=== PATIENT | male | born 1950 | race Caucasian/White ===

== ENCOUNTER → 2017-11-27 08:12 | Outpatient (CLI) | payer MEDICARE, OTHER, SELFPAY ==
[2017-11-27 10:57] LABS: Anion Gap 6 (5-15); BUN 18 mg/dL (7-18); BUN/Creat Ratio 18.1 RATIO (10-20); Calcium,Total 8.9 mg/dL (8.5-10.1); Chloride 109 mmol/L (98-107); Cholesterol 176 mg/dL (200); EST Glomerular Filtration Rate 80 mL/min (>60); Est Glom Filt Rate - Afr Amer 97 mL/min (>60); Glucose 86 mg/dL (74-106); High Density Lipoprotein 59 mg/dL; PSA,Total - Annual Screen 1.73 ng/mL (0.00-4.00); Potassium 4.4 mmol/L (3.5-5.1); Sodium Level 141 mmol/L (136-145); Triglycerides 79 mg/dL; Very Low Density Lipoprotein 16 mg/dL (5-40)
== END ==
PROVIDERS: Family Provider Family Medicine; PCP Family Medicine; Visit Provider Family Medicine
DX: I10 Essential (primary) hypertension (principal); M72.2 Plantar fascial fibromatosis; Z12.5 Encounter for screening for malignant neoplasm of prostate
CPT/HCPCS: 36415; 80048; 80061; 84153; G0103

== ENCOUNTER → 2018-11-30 07:06 | Outpatient (CLI) | payer MEDICARE, OTHER, SELFPAY ==
[2018-11-30 10:37] LABS: Anion Gap 6 (5-15); BUN 22 mg/dL (7-18); BUN/Creat Ratio 23.5 RATIO (10-20); Calcium,Total 8.9 mg/dL (8.5-10.1); Chloride 111 mmol/L (98-107); Creatinine, Serum 0.94 mg/dL (0.70-1.30); EST Glomerular Filtration Rate 86 mL/min (>60); Est Glom Filt Rate - Afr Amer 104 mL/min (>60); Glucose 86 mg/dL (74-106); PSA,Total - Annual Screen 1.22 ng/mL (0.00-4.00); Potassium 4.2 mmol/L (3.5-5.1); Sodium Level 143 mmol/L (136-145)
== END ==
PROVIDERS: Family Provider Family Medicine; PCP Family Medicine; Referring Provider Family Medicine; Visit Provider Family Medicine
DX: Z12.5 Encounter for screening for malignant neoplasm of prostate (principal); I10 Essential (primary) hypertension
CPT/HCPCS: 36415; 80048; 84153; G0103

== ENCOUNTER → 2019-05-31 09:36 | Outpatient (CLI) | payer MEDICARE, OTHER, SELFPAY ==
[2019-05-31 12:32] LABS: Absolute Lymphocyte Count 1.66 X10^3/uL (0.83-4.51); Absolute Neutrophil Count 2.9 X10^3/uL (2.0-7.7); Basophil# 0.05 X10^3/uL; Eosinophil# 0.16 X10^3/uL; Eosinophils% 3.1 % (0-5); Hematocrit 44.8 % (40-54); Hemoglobin 14.5 g/dL (13.0-16.5); Lymphocyte # 1.66 X10^3/ul (4.0); Lymphocyte % 32.4 % (19-41); Mean Corp Hgb Conc 32.4 g/dL (32-36); Mean Corpuscular Hgb 29.8 pg (27.0-32.0); Mean Platelet Vol. 9.7 fl (6.2-12.0); Monocyte# 0.31 X10^3/uL; NRBC Flagged by Analyzer 0 % (0-5); Neutrophil # 2.92 X10^3/uL (2.7-7.7); Neutrophil % 56.9 % (47-70); Platelet Count 235 K/mm3 (150-450); RBC Distribution Width CV 12.9 % (11.6-14.6); RBC Distribution Width SD 43.6 fl (35.1-43.9); Red Blood Count 4.87 M/mm3 (4.6-6.2); White Blood Count 5.1 K/mm3 (4.4-11.0)
[2019-05-31 12:47] LABS: ALB/GLOB Ratio 1.2 RATIO (0.9-2.4); AST(SGOT) 12 U/L (15-37); Alanine Aminotransfer ALT/SGPT 21 U/L (16-61); Albumin, Serum 3.6 g/dL (3.2-5.0); Alkaline Phosphatase 95 U/L (45-117); Anion Gap 6 (5-15); BUN 16 mg/dL (7-18); BUN/Creat Ratio 16.2 RATIO (10-20); Calcium,Total 9.1 mg/dL (8.5-10.1); Chloride 107 mmol/L (98-107); Creatinine, Serum 0.99 mg/dL (0.70-1.30); EST Glomerular Filtration Rate 80 mL/min (>60); Est Glom Filt Rate - Afr Amer 97 mL/min (>60); Globulin 3.1 g/dL (2.2-4.2); Glucose 72 mg/dL (74-106); Potassium 4.4 mmol/L (3.5-5.1); Protein, Total 6.7 g/dL (6.4-8.2); Sodium Level 140 mmol/L (136-145); T4 Free Direct 0.92 ng/dL (0.76-1.46); Thyroid Stim Hormone (TSH) 0.61 uIU/mL (0.358-3.74)
== END ==
PROVIDERS: Family Provider Family Medicine; PCP Family Medicine; Referring Provider Family Medicine; Visit Provider Family Medicine
DX: I10 Essential (primary) hypertension (principal); E04.1 Nontoxic single thyroid nodule
CPT/HCPCS: 36415; 80053; 84439; 84443; 85025

== ENCOUNTER → 2019-06-11 15:12 | Outpatient (CLI) | payer MEDICARE, OTHER, SELFPAY ==
--- NOTE | 2019-06-11 15:14 | US_ITS ---
STUDY: THYROID ULTRASOUND REASON FOR EXAM: Male, 69 years old. NODULE FELT ON EXAM TECHNIQUE: Ultrasound evaluation of the thyroid was performed with real-time and static hart-scale imaging. COMPARISON: None. FINDINGS: RIGHT LOBE: The right lobe of the thyroid gland measures 5.0 x 2.0 x 1.9 cm. There is a heterogeneous echotexture. Multiple hypoechoic nodules are scattered throughout the entire right lobe.The largest nodule measures 1.1 cm. LEFT LOBE: The left lobe of the thyroid gland measures 5.0 x 1.9 x 2.0 cm. There is a heterogeneous echotexture. Multiple hypoechoic and isoechoic nodules are scattered throughout the entire left lobe. The largest nodule measures 1.3 cm. ISTHMUS: The isthmus measures 3 mm. US/Thyroid IMPRESSION: 1. Findings are compatible with multinodular goiter Electronically Signed: Juan Ennis MD at 10:20 EST , Service support ,
--- NOTE | 2019-06-11 16:45 | MRI_ITS ---
STUDY: MRI BRAIN WITH AND WITHOUT CONTRAST REASON FOR EXAM: Male, 69 years old. Acoustic schwannoma TECHNIQUE: Standardized multiplanar fat and water weighted pulse sequences were obtained. IV Dotarem 17 was administered for the contrast portion of the examination. COMPARISON: 06/24/2015 FINDINGS: There is enhancing lesion in the cochlea and vestibule grossly unchanged since the previous study. There is enlarging component within the lateral aspect of the internal auditory canal measured previously 2.2 x 1.5 mm now measures 3.5 x 3.5 mm. Normal size of the ventricles and extra-axial spaces for the patient's age. Normal white matter tracts of the supratentorial brain. Normal bilateral basal ganglia. Normal thalami. There is no extra-axial fluid accumulation. Normal flow voids within the major intracranial circulation suggesting patency by spin echo criteria. There is no enhancing intra-axial or extra-axial abnormality. Normal sella turcica, pituitary gland, infundibular stalk, optic chiasm and hypothalamus. Normal tectal plate and pineal gland. Normal midbrain, jesus and medulla. Normal cerebellum. Normal basal cisterns. Normal bilateral temporal bones. Normal bilateral internal auditory canals. No demonstrated orbital abnormality, within the constraints of a routine brain study. Normal visualized paranasal sinuses. Normal calvarium and skull base. Normal visualized soft tissue structures. Normal visualized upper cervical spine. 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 Electronically Signed: Nupur Mendoza, at 1:07 EST Tel , Service support ,
== END ==
PROVIDERS: Family Provider Family Medicine; PCP Family Medicine; Referring Provider Family Medicine; Visit Provider Family Medicine
DX: D36.10 Benign neoplasm of peripheral nerves and autonomic nervous system, unspecified (principal); E04.1 Nontoxic single thyroid nodule
CPT/HCPCS: 70553; 76536; A9575

== ENCOUNTER → 2020-01-29 11:14 | Outpatient (CLI) | payer MEDICARE, OTHER, SELFPAY ==
[2020-01-29 11:18] LABS: Mucous, Urine 0 SEEN /hpf (<or=2+)
[2020-01-29 12:50] LABS: Color, Urine Yellow (Yellow); Glucose, Dipstick Normal (Normal); Ketone-Dipstick Negative (Negative); Leukocyte Esterase-Dipstick 500 /ul (Negative); Nitrite-Dipstick Negative (Negative); Occult Blood-Urine 150 /ul (Negative); Protein-Dipstick 30 mg/dl (Negative); Urine Bilirubin Dipstick Negative (Negative); Urine Clarity Sl. Cloudy (Clear); Urine Urobilinogen Normal (Normal)
[2020-01-29 13:00] LABS: Bacteria 1+ /hpf (None Seen); Red Blood Cells-Urine 10-25 SEEN /hpf (0-5); Squamous Epithelial Cells - UA 0-5 SEEN /hpf (0-5); White Blood Cells 50-100 SEEN /hpf (0-5)
[2020-01-29 13:27] LABS: PSA,Total - Annual Screen 4.82 ng/mL (0.00-4.00)
== END ==
PROVIDERS: PCP Family Medicine; Visit Provider Family Medicine
DX: R30.0 Dysuria (principal); Z12.5 Encounter for screening for malignant neoplasm of prostate
CPT/HCPCS: 81001; 84153; 87077; 87086; 87088; 87186; G0103

== ENCOUNTER → 2020-02-28 08:53 | Outpatient (CLI) | payer MEDICARE, OTHER, SELFPAY ==
[2020-02-28 10:06] LABS: PSA,Total- Diagnostic 2.14 ng/mL (0.0-4.0)
== END ==
PROVIDERS: PCP Family Medicine; Referring Provider Family Medicine; Visit Provider Family Medicine
DX: R97.20 Elevated prostate specific antigen [PSA] (principal)
CPT/HCPCS: 36415; 84153

== ENCOUNTER → 2020-03-13 12:17 | Outpatient (CLI) | payer MEDICARE, OTHER, SELFPAY ==
[2020-03-13 15:36] LABS: Hematocrit 50.3 % (40-54); Mean Corp Hgb Conc 31.8 g/dL (32-36); Mean Corpuscular Hgb 28.8 pg (27.0-32.0); Mean Corpuscular Volume 90.6 fL (80-94); Mean Platelet Vol. 9.7 fl (6.2-12.0); Platelet Count 269 K/mm3 (150-450); RBC Distribution Width CV 12.8 % (11.6-14.6); RBC Distribution Width SD 42.7 fl (35.1-43.9); Red Blood Count 5.55 M/mm3 (4.6-6.2); White Blood Count 7.3 K/mm3 (4.4-11.0)
[2020-03-13 16:19] LABS: Anion Gap 7 (5-15); BUN 18 mg/dL (7-18); BUN/Creat Ratio 16.8 RATIO (10-20); Calcium,Total 9.2 mg/dL (8.5-10.1); Chloride 106 mmol/L (98-107); Creatinine, Serum 1.07 mg/dL (0.70-1.30); EST Glomerular Filtration Rate 73 mL/min (>60); Est Glom Filt Rate - Afr Amer 88 mL/min (>60); Glucose 86 mg/dL (74-106); Magnesium 2.5 mg/dL (1.6-2.6); Potassium 4.5 mmol/L (3.5-5.1); Sodium Level 139 mmol/L (136-145); Thyroid Stim Hormone (TSH) 0.88 uIU/mL (0.358-3.74)
== END ==
PROVIDERS: PCP Family Medicine; Referring Provider Family Medicine; Visit Provider Family Medicine
DX: I48.91 Unspecified atrial fibrillation (principal)
CPT/HCPCS: 36415; 80048; 83735; 84443; 85027

== ENCOUNTER → 2020-03-27 14:19 | Outpatient (CLI) | payer MEDICARE, OTHER, SELFPAY ==
[2020-03-27 17:47] LABS: Absolute Lymphocyte Count 1.98 X10^3/uL (0.83-4.51); Absolute Neutrophil Count 3.2 X10^3/uL (2.0-7.7); Basophil# 0.07 X10^3/uL; Basophil% 1.2 % (0-1); Eosinophil# 0.25 X10^3/uL; Eosinophils% 4.2 % (0-5); Hematocrit 44.6 % (40-54); Hemoglobin 14.3 g/dL (13.0-16.5); Lymphocyte # 1.98 X10^3/ul (4.0); Lymphocyte % 33.3 % (19-41); Mean Corp Hgb Conc 32.1 g/dL (32-36); Mean Corpuscular Hgb 29.3 pg (27.0-32.0); Mean Corpuscular Volume 91.4 fL (80-94); Mean Platelet Vol. 10.2 fl (6.2-12.0); Monocyte% 6.7 % (0-10); NRBC Flagged by Analyzer 0 % (0-5); Neutrophil # 3.24 X10^3/uL (2.7-7.7); Neutrophil % 54.4 % (47-70); Platelet Count 232 K/mm3 (150-450); RBC Distribution Width CV 12.8 % (11.6-14.6); Red Blood Count 4.88 M/mm3 (4.6-6.2)
[2020-03-27 18:11] LABS: AST(SGOT) 19 U/L (15-37); Alanine Aminotransfer ALT/SGPT 30 U/L (16-61); Albumin, Serum 3.5 g/dL (3.2-5.0); Alkaline Phosphatase 101 U/L (45-117); Anion Gap 5 (5-15); BUN 19 mg/dL (7-18); BUN/Creat Ratio 17.4 RATIO (10-20); Calcium,Total 8.5 mg/dL (8.5-10.1); Chloride 106 mmol/L (98-107); Creatinine, Serum 1.09 mg/dL (0.70-1.30); EST Glomerular Filtration Rate 72 mL/min (>60); Est Glom Filt Rate - Afr Amer 87 mL/min (>60); Globulin 3.4 g/dL (2.2-4.2); Glucose 80 mg/dL (74-106); Magnesium 2.4 mg/dL (1.6-2.6); Potassium 4.4 mmol/L (3.5-5.1); Protein, Total 6.9 g/dL (6.4-8.2); Sodium Level 139 mmol/L (136-145); Thyroid Stim Hormone (TSH) 0.86 uIU/mL (0.358-3.74)
== END ==
PROVIDERS: PCP Family Medicine; Referring Provider Family Medicine; Visit Provider Family Medicine
DX: I48.91 Unspecified atrial fibrillation (principal)
CPT/HCPCS: 36415; 80053; 83735; 84443; 85025

== ENCOUNTER → 2020-04-06 13:47 | Outpatient (CLI) | payer MEDICARE, OTHER, SELFPAY ==
--- NOTE | 2020-04-06 13:51 | ECHOD_ITS ---
Reason For Study: AFIB Procedure This was a 2D Doppler, Color Flow transthoracic echocardiogram. The exam was of adequate technical quality. Exam performed in department. Left Ventricle Normal LV size. Left ventricular systolic function is normal. The estimated ejection fraction is 55 %. Unable to assess diastolic dysfunction. No regional wall motion abnormalities noted. Right Ventricle Normal RV size. Normal systolic function. Atria The left atrium is mildly enlarged. Normal right atrium. No doppler evidence for ASD. Mitral Valve There is no mitral annular calcification. Normal mitral valve. Mild (1+) mitral valve insufficiency. Tricuspid Valve Normal tricuspid valve. Mild tricuspid valve insufficiency. Right ventricular systolic pressure estimated to be 21 mmHg. Aortic Valve Trisinus/trileaflet aortic valve. Normal aortic valve. Pulmonic Valve The pulmonic valve is not well visualized. Trivial pulmonic valve insufficiency. Great Vessels Normal sized aortic root. Pericardium/Pleural No pericardial effusion. MMode/2D Measurements & Calculations LVIDd: 4.6 cm IVSd: 0.93 cm Ao root diam: 3.5 cm LVIDs: 3.3 cm LVPWd: 0.93 cm RVDd: 3.7 cm FS: 27.7 % LAV(MOD-bp): 62.3 ml LA A4 area: 16.3 cm2 LA dimension(2D): 4.5 cm LAV(MOD-bp) Indexed: 28.9 ml/m2 LAV(MOD-sp2): 63.4 ml LAV(MOD-sp4): 47.2 ml RA A4 area: 16.0 cm2 Time Measurements MV dec time: 0.20 sec Doppler Measurements & Calculations MV E max patrick: 79.7 cm/sec Ao V2 max: 106.8 cm/sec LV V1 max: 90.2 cm/sec Ao max P.6 mmHg LV V1 max P.3 mmHg PA V2 max: 82.2 cm/sec TR max patrick: 210.5 cm/sec TR max P.7 mmHg Interpretation Summary Left ventricular systolic function is normal. The estimated ejection fraction is 55 %. The left atrium is mildly enlarged. Mild (1+) mitral valve insufficiency. Mild tricuspid valve insufficiency. Trivial pulmonic valve insufficiency. Right ventricular systolic pressure estimated to be 21 mmHg. Unable to assess diastolic dysfunction. Ordering Physician: Angel Guzman Referring Physician: Angel Guzman Performed By: Marybeth Rush, TYRON, RVT
== END ==
PROVIDERS: PCP Family Medicine; Referring Provider Family Medicine; Visit Provider Family Medicine
DX: I48.91 Unspecified atrial fibrillation (principal); R07.9 Chest pain, unspecified
CPT/HCPCS: 93306

== ENCOUNTER → 2020-05-28 06:57 | Outpatient (CLI) | payer MEDICARE, OTHER, SELFPAY ==
[2020-05-07 15:31] VITALS: BMI 24.5
--- NOTE | 2020-05-28 09:40 | STRESSREP ---
Stress Test Report Date: 05-28-2020 Procedure: Exercise tolerance test/imaging study Indications: Atrial fibrillation Consent: Per the patient Procedure: The patient exercised on a Richard protocol for 9 minutes completing Stage III achieving a peak heart rate of 129 bpm (84% predicted maximal heart rate) with a peak blood pressure 164/84 mmHg and a peak MET capacity of 10 METs. The baseline ECG demonstrated sinus rhythm. The peak exercise ECG demonstrated no obvious ECG changes. There were occasional PACs in recovery. The functional capacity was considered good. There was no complaint of chest discomfort during exercise or recovery. The examination was discontinued secondary to dyspnea. Impression: 1. Technically adequate (percent predicted maximal heart rate greater than 85%) exercise tolerance test 2. Peak exercise ECG with no obvious ECG changes 3. Were occasional PACs in recovery 4. Nuclear images pending Myocardial perfusion imaging study: Technique: The patient was injected with 11.4 mCi of technetium 99m Cardiolite and subsequently rest SPECT Cardiolite nuclear imaging was obtained in the horizontal long, vertical long, and short axis views. The patient exercised on a Richard protocol for 9 minutes completing Stage III achieving a peak heart rate of 129 bpm (84% predicted maximal heart rate) with a peak blood pressure 164/84 mmHg and a peak MET capacity of 10 METs. The patient was injected with 35.0 mCi of technetium 99m Cardiolite and subsequently stress SPECT Cardiolite nuclear imaging was obtained in the horizontal long, vertical long, and short axis views. A gated Cardiolite study at peak stress was obtained. Interpretation: Rest and stress SPECT Cardiolite nuclear imaging status post realignment, normalization, and attenuation correction, demonstrates the appearance following stress of an area of diminished tracer uptake in the mid inferoseptal/mid inferior segments. There is end systolic thickening and brightening. The gated Cardiolite study demonstrates myocardial thickening and inward wall motion. The reported LVEF is 64%. Impression: 1. Rest and stress SPECT Cardiolite nuclear imaging demonstrate myocardial perfusion changes potentially compatible with an area of stress-induced myocardial ischemia in portions of the mid inferior septal/mid inferior segments. 2. The gated Cardiolite study reports an LVEF of 64%. This note was generated with [employer] software. It may contain incorrect words, spelling, and punctuation that were not noted in checking the note before signing.
== END ==
PROVIDERS: PCP Family Medicine; Referring Provider Internal Medicine Cardiovascular Disease; Visit Provider Internal Medicine Cardiovascular Disease
DX: I48.91 Unspecified atrial fibrillation (principal); I25.10 Atherosclerotic heart disease of native coronary artery without angina pectoris
CPT/HCPCS: 78452; 93017; A9500; A4216

== ENCOUNTER 2020-06-16 07:55 | Day surgery (SDC) | payer MEDICARE, OTHER, SELFPAY ==
[2020-05-07 15:31] VITALS: BMI 24.5
--- NOTE | 2020-06-08 10:04 | RAD_ITS ---
STUDY: X-RAY CHEST REASON FOR EXAM: Male, 70 years old. Abnormal stress test. Intermittent chest pain. Atrial fibrillation. TECHNIQUE: Frontal and lateral views of the chest. COMPARISON: 03/03/2014 FINDINGS: Hyperexpansion unchanged. There is no demonstrated pleural abnormality. Normal size heart. Normal mediastinum and sudhir. Normal visualized pulmonary arteries. Normal visualized aortic arch and descending thoracic aorta. Normal visualized thoracic spine. Normal visualized ribs, clavicles, and shoulders. There is no demonstrated abnormality of the visualized soft tissue structures of the upper abdomen. RAD/Chest PA and Lateral IMPRESSION: Hyperexpansion with no acute finding. Electronically Signed: Elliot Robertson MD at 15:30 EST , Service support ,
[2020-06-08 11:38] LABS: Absolute Lymphocyte Count 1.64 X10^3/uL (0.83-4.51); Basophil# 0.04 X10^3/uL; Basophil% 0.8 % (0-1); Eosinophil# 0.18 X10^3/uL; Eosinophils% 3.5 % (0-5); Hematocrit 45.8 % (40-54); Hemoglobin 14.5 g/dL (13.0-16.5); Lymphocyte # 1.64 X10^3/ul (4.0); Lymphocyte % 31.8 % (19-41); Mean Corp Hgb Conc 31.7 g/dL (32-36); Mean Corpuscular Hgb 29.1 pg (27.0-32.0); Mean Platelet Vol. 9.6 fl (6.2-12.0); Monocyte# 0.31 X10^3/uL; NRBC Flagged by Analyzer 0 % (0-5); Neutrophil # 2.98 X10^3/uL (2.7-7.7); Neutrophil % 57.7 % (47-70); Platelet Count 235 K/mm3 (150-450); RBC Distribution Width CV 12.8 % (11.6-14.6); RBC Distribution Width SD 43.3 fl (35.1-43.9); Red Blood Count 4.98 M/mm3 (4.6-6.2); White Blood Count 5.2 K/mm3 (4.4-11.0)
[2020-06-08 11:54] LABS: Partial Thromboplast Time 27.3 Seconds (24.1-36.2); Prothrombin Time (Protime)PT. 13.1 SECONDS (11.7-14.9)
[2020-06-08 12:20] LABS: Anion Gap 3 (5-15); BUN 21 mg/dL (7-18); BUN/Creat Ratio 21.7 RATIO (10-20); Calcium,Total 9.1 mg/dL (8.5-10.1); Chloride 108 mmol/L (98-107); Creatinine, Serum 0.97 mg/dL (0.70-1.30); EST Glomerular Filtration Rate 82 mL/min (>60); Est Glom Filt Rate - Afr Amer 99 mL/min (>60); Glucose 76 mg/dL (74-106); Potassium 4.4 mmol/L (3.5-5.1); Sodium Level 140 mmol/L (136-145)
[2020-06-15 11:50] VITALS: BMI 24.5
[2020-06-16] VITALS (12 sets, daily range): BP systolic 124–164; BP diastolic 74–92; PULSE 50–67; RESP 16–18; TEMP 36.1–36.6; O2SAT 96–100; BMI 24.5
--- NOTE | 2020-06-16 09:00 | HP_ITS ---
HPI HPI History of Present Illness Details: This is a 70-year-old white male who presents for outpatient cardiovascular evaluation for concerns of paroxysmal atrial fibrillation. He states in the past he was thought to be hypertensive. However over the years he was weaned off his antihypertensive regimen. He states his blood pressure has been under good control. To the best of his knowledge she had no previous cardiovascular history or concerns. He notes that within the last 1 to 2 months he has had episodes of palpitations. He states he was evaluated by his PCP and was told he had paroxysmal atrial fibrillation. Based upon his [id number] reported at 1 (based upon his lack of congestive heart failure, lack of ongoing hypertension, lack of diabetes, lack of stroke, lack of vascular disease, and being a male as opposed to a female) he was placed on aspirin therapy and additional rate limiting therapy with low-dose beta-dom therapy. He states these events have been random. One awoke him from sleep and lasted for period of time throughout the night. The other ones have been somewhat random and shorter. He has not had near syncope or syncope. He has not had any ongoing concerning chest discomfort or difficulty breathing with these events. There is been no associated nausea, emesis, or diaphoresis. He states otherwise he is active. He has no other concerning chest discomfort. He does note that he can get the sensation of feeling somewhat short of breath at times. He has attributed this to age to some degree as well as during the coronavirus pandemic weight gain to some degree. He had an ECG in the office today. He was noted to be in sinus bradycardia with no obvious acute ECG changes. He had a transthoracic echocardiogram performed on 04-06-2020. The results are as noted below. He has had no other ongoing cardiac testing or procedures. 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 Accompanied by: Self Allergies No Known Allergies Allergy (Verified 05/07/20 15:32) Medications aspirin 81 mg tablet,delayed release 81 mg PO DAILY 05/05/20 [History Confirmed 05/07/20] escitalopram oxalate 20 mg tablet 20 mg PO DAILY 05/05/20 [History Confirmed 05/07/20] metoprolol tartrate 25 mg tablet 25 mg PO BID 05/05/20 [History Confirmed 05/07/20] FOR[facility]LY [facility] Medical History New onset atrial fibrillation (Acute) Multiple thyroid nodules (Acute) HTN (hypertension) (Chronic) Erectile dysfunction (Acute) Schwannoma (Acute) Tenosynovitis of hand (Acute) TMJ (dislocation of temporomandibular joint) (Chronic) Surgical History H/O oral surgery (Resolved) H/O shoulder surgery (Resolved) S/P arthroscopic surgery of left knee (Resolved) S/P arthroscopic surgery of right knee (Resolved) S/P rotator cuff repair (Resolved) Family History Grandfather Cancer Diabetes Mother Hypertension CVA (cerebral vascular accident) Father Cancer Grandmother Hypertension Aunt CVA (cerebral vascular accident) Other Heart disease Social History (Updated 05/07/20 @ 17:[address] Lan Harris MD) Smoking Status: Never smoker alcohol intake: current Alcohol type: beer substance use type: does not use caffeine: Yes ROS Const Const: Negative for fatigue, weakness, frequent falls, excessive sweating, weight gain or weight loss Eyes Eyes: Negative for transient loss of vision, blurry vision or change in vision ENT ENT: Positive for balance problems; negative for dizziness Cardio Chest Pain: No Palpitations: Yes (occasional) feels like its: other (flutter) Edema: None Muscle aches with walking: None Resp Respiratory: Positive for SOB with activity; negative for SOB at rest GI GI: Negative vomiting or vomiting blood/hematemesis : Negative for hematuria Musc Musc: Positive for balance problems; negative for muscle aches/ myalgia, muscle weakness or joint pain Skin Skin: Negative non-healing lesions or rash Neuro Neuro: Negative for dizziness, lightheadedness, orthostatic symptoms, frequent falls, weakness or blurry vision Dinesh Hematologic/Lymphatic: Negative for easy bleeding Endo Endo: Negative for fatigue or excessive sweating Psych Psych: Negative for anxiety or depression Allergy Allergy/Immunology: Negative for hives, Negative for rash Cardiology Exam Const Appearance: cooperative, healthy appearing, comfortable, no acute distress, well developed and well groomed Nutritional Appearance: thin Orientation: alert, awake and oriented x3 Head Head: normal to inspection, normocephalic and atraumatic Ears: hearing grossly normal bilaterally Nose: external nose normal Face and Sinus: face symmetric Eyes Eyelids: eyelids normal Conjunctivae: conjunctivae normal Pupils: PERRL EOM: EOM intact bilaterally Neck Neck: normal visual inspection and full ROM Carotids: normal carotid upstroke Chest Chest inspection: normal inspection of the chest, symmetric chest movement and normal respiratory effort Auscultation: Bilateral: Clear to Auscultation Cardio Palpation: normal PMI Rhythm: regular rhythm Heart sounds: S1 normal and S2 normal GI GI: normal to inspection, soft and bowel sounds present Neuro General: alert, awake, oriented x3 and moves all extremities Skin Skin: no rashes or lesions noted Extremities Pulses: Normal: Right Radial Pulse, Left Radial Pulse Lower Extremity Edema: None: Bilateral Psych Psychological: normal affect Assessment & Plan 1. New onset atrial fibrillation I48.91 Plan At the present time he appears to be remaining in sinus rhythm. He will continue his current medical therapy. He will undergo further evaluation with a 30-day ambulatory event monitor to try and correlate his symptoms with his underlying rhythm to assist with additional evaluation and care. He will also have further evaluation with an exercise tolerance test/imaging study to evaluate for any obvious underlying CAD that may be contributing to any of his symptoms and/or findings. Orders Orders: 12 [place] [facility] [place] 30 Day Event Recorder [employer] Today Nuclear Stress Test - [facility] Today 2. Essential hypertension I10 Plan As noted above he states he was treated for hypertension and then weaned off his medications. Thus he does not believe he has ongoing active hypertension. His blood pressure will need to be followed as this could factor into his ongoing evaluation and care. 3. Multiple thyroid nodules E04.2 Plan He is also been diagnosed with a multinodular goiter. He states he is due for a follow-up evaluation this fall by his other physicians. He did have a TSH level performed in March which appeared to be within normal limits at that time. 4. Shortness of breath R06.02 Plan He does noted sensation of shortness of breath. He is attributed to the aforementioned reasons. However based upon his ongoing diagnosis would be reasonable to evaluate him for the possibility of CAD and myocardial ischemia as noted above. Plan Detail Additional Comments The above was discussed with him and he was agreeable to this approach. Thank you for allowing me to participate in the care of your patient. Please don't hesitate to call if any issues arise. This note was generated using a voice recognition system and there may be incorrect words, spelling or punctuation that were not noted when reviewing the office note prior to saving. Follow Up 6 Months (with PFM) Coding Level of Care Code Off vis,new,level 4 Diagnoses New onset atrial fibrillation I48.91 Essential hypertension I10 ??Hypertension type: essential hypertension Multiple thyroid nodules E04.2 Shortness of breath R06.02 Coding Level of Care Code Off vis,new,level 4 Diagnoses New onset atrial fibrillation I48.91 Essential hypertension I10 ??Hypertension type: essential hypertension Multiple thyroid nodules E04.2 Shortness of breath R06.02 Supplemental Info Supplemental Information Echocardiogram: 04-06-2020 Interpretation Summary Left ventricular systolic function is normal. The estimated ejection fraction is 55 %. The left atrium is mildly enlarged. Mild (1+) mitral valve insufficiency. Mild tricuspid valve insufficiency. Trivial pulmonic valve insufficiency. Right ventricular systolic pressure estimated to be 21 mmHg. Unable to assess diastolic dysfunction. Labs LDL Cholesterol 101 mg/dL (0-130) 11/27/17 HDL Cholesterol 59 mg/dL (40-) 11/27/17 Triglycerides 79 mg/dL (-199) 11/27/17 VLDL Cholesterol 16 mg/dL (5-40) 11/27/17 Diagnostics Electrocardiogram 05/07/20 Echocardiogram 04/06/20 Chest X-Ray 03/03/14 I have examined the patient the following changes are noted: The patient underwent further evaluation as noted above with an exercise tolerance test / imaging study. The results are noted below. Stress Test Report Date: 05-28-2020 Procedure: Exercise tolerance test/imaging study Indications: Atrial fibrillation Consent: Per the patient Procedure: The patient exercised on a Richard protocol for 9 minutes completing Stage III achieving a peak heart rate of 129 bpm (84% predicted maximal heart rate) with a peak blood pressure 164/84 mmHg and a peak MET capacity of 10 METs. The baseline ECG demonstrated sinus rhythm. The peak exercise ECG demonstrated no obvious ECG changes. There were occasional PACs in recovery. The functional capacity was considered good. There was no complaint of chest discomfort during exercise or recovery. The examination was discontinued secondary to dyspnea. Impression: 1. Technically adequate (percent predicted maximal heart rate greater than 85%) exercise tolerance test 2. Peak exercise ECG with no obvious ECG changes 3. Were occasional PACs in recovery 4. Nuclear images pending Myocardial perfusion imaging study: Technique: The patient was injected with 11.4 mCi of technetium 99m Cardiolite and subsequently rest SPECT Cardiolite nuclear imaging was obtained in the horizontal long, vertical long, and short axis views. The patient exercised on a Richard protocol for 9 minutes completing Stage III achieving a peak heart rate of 129 bpm (84% predicted maximal heart rate) with a peak blood pressure 164/84 mmHg and a peak MET capacity of 10 METs. The patient was injected with 35.0 mCi of technetium 99m Cardiolite and subsequently stress SPECT Cardiolite nuclear imaging was obtained in the horizontal long, vertical long, and short axis views. A gated Cardiolite study at peak stress was obtained. Interpretation: Rest and stress SPECT Cardiolite nuclear imaging status post realignment, normalization, and attenuation correction, demonstrates the appearance following stress of an area of diminished tracer uptake in the mid inferoseptal/mid inferior segments. There is end systolic thickening and brightening. The gated Cardiolite study demonstrates myocardial thickening and inward wall motion. The reported LVEF is 64%. Impression: 1. Rest and stress SPECT Cardiolite nuclear imaging demonstrate myocardial perfusion changes potentially compatible with an area of stress-induced myocardial ischemia in portions of the mid inferior septal/mid inferior segments. 2. The gated Cardiolite study reports an LVEF of 64%. Based upon the above, the patient was recommended to consider further evaluation with diagnostic cardiac cath. The procedure and risks were discussed with him and he grants consent. The surgeon/proceduralist and patient have discussed in detail the risk of exposure to and/or potential harm posed by the COVID-19 virus with having a surgery/procedure at this time versus the risk of delaying the surgery/procedure. It is not possible to know either the risk of delaying the surgery or procedure or chance of getting an infection with perfect accuracy, but a joint decision was made between the patient and the surgeon/proceduralist to proceed at this time with the scheduled surgery/procedure as indicated on the consent form.
--- NOTE | 2020-06-16 12:45 | EKG12_ITS ---
Test Reason : PCI Blood Pressure : / mmHG Vent. Rate : 054 BPM Atrial Rate : 054 BPM P-R Int : 160 ms QRS Dur : 094 ms QT Int : 442 ms P-R-T Axes : 019 -06 024 degrees QTc Int : 419 ms Sinus bradycardia Otherwise normal ECG When compared with ECG of 03-MAR-2014 16:30, No significant change was found Confirmed by YELENA SUGGS, RYAN ([id number]), video editor WON MACKEY ([id number]) on 06/19/2020 2:26:06 PM Referred By: Lan Harris Confirmed By:YAYA KIRK MD
--- NOTE | 2020-06-16 13:28 | CL.D_ITS ---
Patient Name: ESTUARDO SMITH Study Date: 06/16/2020 Performing: Lan Harris MD Ht: 75.2 inches 191 cm : 1950 Wt: 196.21 lbs 89 kg Age: 70 Gender: male BSA: 2.18 PROCEDURE(S) PERFORMED II39-LEV/COR/LV PV49-AEX W OR WO PTCA, SINGLE CORONARY ARTERY [id number] W OR WO PTCA, SINGLE CORONARY ARTERY CLINICAL PROFILE AND INDICATIONS Indications: Suspected CAD, Cardiac Arrythmia Heart Failure: None Stress/Imaging Date: 05/28/2020Stress Test with SPECT MPI: Positive Angina Classification Anginal Classification w/in 2 Weeks: Anginal Equivalent Dyspnea CAD Presentations: Other: dyspnea on exertion CONCLUSIONS Elevated Left Ventricular End Diastolic Pressure Normal LV size, wall motion,and systolic function LVEF: by LV gram 60 % [place] Multivessel CAD RECOMMENDATIONS Risk factor modification Medical therapy Referred for immediate PCI Surgery consult for coronary revascularization Consultation: with Dr. Nathan of interventional cardiology and Dr. Benson of [facility] CT Surgery: Co nsideration for hybrid procedure with PCI to the LCX and RCA and elective minimally invasive DEL CID to the LAD) DESCRIPTION OF PROCEDURE The patient arrived to the procedure lab. The risks and benefits of the procedure as well as a full d escription of our services here and current unavailability of surgical backup were fully explained to the patient and/or their significant other prior to the catheterization. The Timeout was completed, verifying the correct patient and procedure. The patient's procedural site was prepped and draped in the usual fashion. Local anesthetic was given subcutaneously to right radial region with Lidocaine 2% . Using a modified Seldinger technique, arterial access was obtained via the right radial artery, a 6 Fr sheath was inserted. Right Coronary Artery selective angiography was then performed in multiple v iews using a 5 Fr. 4.0 [place] catheter. Left Coronary Artery selective angiography was performed in mu ltiple views using a 5 Fr. 4.0 [place] catheter. Left Coronary Artery selective angiography was perform ed in multiple views using a 5 Fr. JL3.5 catheter. Left Ventriculography was performed in BURGESS projection using a 5 Fr. Pigtail catheter. LV to AO pullback pressures were then recorded.The art erial sheath was pulled and a TR Band was applied for hemostasis w/ 15ml air CORONARY ANGIOGRAPHY DOMINANCE: Right Dominant LEFT HEART ASSESSMENT Left Ventricular Ejection Fraction: by LV Gram 60 % Normal LV wall motion Elevated Left Ventricular End Diastolic Pressure LVEDP: 16 mmHg LEFT MAIN: Mild luminal irregularities LEFT ANTERIOR DESCENDING ARTERY: Severe calcification, Mild luminal irregularities OSTIAL LAD: 85 % Stenosis CIRCUMFLEX ARTERY: Mild luminal irregularities PROX CIRC: 75 % Stenosis OM 1: Proximal - eccentric: 10 - 25 % Stenosis OM 2: Proximal - eccentric: 10 - 25 % Stenosis RIGHT CORONARY ARTERY: Mild luminal irregularities MID RCA: eccentric: 90 % Stenosis AORTIC ROOT: Angiographically normal COMPLICATIONS No Complications PROCEDURE MEDICATIONS Versed 1 mg IV Fentanyl 50 mcg IV Oxygen: 2 L/min via nasal cannula Heparin diluted in 23cc Heparinized saline. Patient given 10cc IA of this solution. 06/16/2020 09:33: 02 Heparin 7000 unit(s) IV 06/16/2020 11:01:06 Nitro 100 mcg IC 06/16/2020 11:04:47 SUMMARY OF HEMODYNAMIC DATA Time AIR REST ECG 08:13:34 AO 117/61 (88) SA 09:41:45 LV 149/-1, 16 09:56:51 LV 136/-8, 16 09:56:57 LV 127/-4, 22 09:58:02 LVp 116/-7, 6 09:58:06 AOp 135/67 (94) 09:58:11 AO 154/88 (40) 11:45:44 Signed By Lan Harris MD On 06/16/2020 13:27:44 Lan Harris MD
[2020-06-16] MEDS: 0.9% Normal Saline 1,000 ML 100 ML IV (14:02)
--- NOTE | 2020-06-16 14:35 | CRPHASE1 ---
Patient Communication Former Patient:: Phase I PHII Cardiac Rehab Discussed with Patient:: Yes Guide to Cardiac Rehab Given to Patient:: Yes Cardiac Rehab Facility Choice List Given to Patient:: Yes Choice Program [facility] PHII:: Communication Given to CR Choice Program Other:: Communication Given to CR Community Health Education Coordinator:: Shruthi Nathan Phase II Cardiac Rehab:: Yes Sessions:: 36 sessions - 3 days/wk, 12 weeks Risk Factors/Lifestyle Smoking Status: Never smoker Hx Hypertension: Yes - currently within normal limits Hx Diabetes Mellitus Type 1: No Hx Diabetes Mellitus Type 2: No Hx Metabolic Disorders: No Hx Dyslipidemia: No Hx Obesity: No ETOH: No Caffeine: No Substance Abuse: No Family History: Family History (Last Reviewed 05/07/20 @ 15:34 by Patricia Watt) Grandfather Cancer Diabetes Mother Hypertension CVA (cerebral vascular accident) Father Cancer Grandmother Hypertension Aunt CVA (cerebral vascular accident) Other Heart disease Cardiac Rehabilitation Info Cardiac Rehabilitation Program Information: Cardiac Rehabilitation is important for patients like you who are recovering from a heart problem. Cardiac rehabilitation programs are recognized as integral to the continued care of the patient with coronary heart disease. The cardiac rehabilitation program is designed to optimize a patient's physical, psychological, and social functioning. Health child care provider work in cardiac rehabilitation programs and assist you with getting the treatments you need to get stronger and healthier - like exercise, healthy eating habits, and medications. Cardiac rehabilitation has been show to help people with heart problems live longer and have better life enjoyment than people who do not go to cardiac rehabilitation. Please contact the Cardiac Rehabilitation Program at [facility] at in two weeks if you have not heard from them.
--- NOTE | 2020-06-16 14:37 | CRPH1.INSTRU ---
General Education CAD and cardiac anatomy and function:: Patient communicates acknowledgment Explanation of diagnoses and procedures:: Patient communicates acknowledgment Sign/Symptoms of [place]:: Patient communicates acknowledgment Antiplatelet therapy: Patient communicates acknowledgment Smoking Patient Nicotine/Smoking Risk Factors Are:: Never smoked Overweight/Obesity Patient Overweight/Obesity Risk Factors Are:: BMI Normal [24-29 & > 65 years old] Overweight/Obesity:: Not instructed Hypertension Recommendations Include:: Maintain BP <130/85, DASH dietary guidelines, Decrease/maintain normal body weight, Moderation of ETOH Hypertension:: Patient communicates acknowledgment Diabetes Patient Diabetes Risk Factors Are:: No documented hx of diabetes Stress Patient Stress Risk Factors Are:: Patient denies stress as a risk factor
[2020-06-16 14:51] LABS: ACT Activated Clotting Time 224 sec (74-137)
[2020-06-16] MEDS: Acetaminophen 325 MG Tablet 650 MG PO (14:53)
[2020-06-16] MEDS: Atorvastatin Calcium 40 MG Tablet PO (20:58)
[2020-06-17 03:00] VITALS: BP 112/76; PULSE 49; PULSE 66; RESP 16; TEMP 36.3; O2SAT 96
--- NOTE | 2020-06-17 05:55 | EKG12_ITS ---
Test Reason : AFIB Blood Pressure : / mmHG Vent. Rate : 067 BPM Atrial Rate : 067 BPM P-R Int : 134 ms QRS Dur : 094 ms QT Int : 398 ms P-R-T Axes : 018 -17 018 degrees QTc Int : 420 ms Normal sinus rhythm Normal ECG Confirmed by BRONSON SUGGS, LAN ([id number]), editorial director ALEJA PAN ([id number]) on 06/24/2020 1:13:19 PM Referred By: Lan Dobson Confirmed By:LAN DOBSON MD
[2020-06-17 07:00] VITALS: PULSE 55
[2020-06-17 07:05] LABS: Absolute Lymphocyte Count 1.73 X10^3/uL (0.83-4.51); Absolute Neutrophil Count 3.7 X10^3/uL (2.0-7.7); Basophil# 0.06 X10^3/uL; Eosinophils% 3.3 % (0-5); Hematocrit 41.8 % (40-54); Hemoglobin 13.9 g/dL (13.0-16.5); Lymphocyte # 1.73 X10^3/ul (4.0); Lymphocyte % 28.2 % (19-41); Mean Corp Hgb Conc 33.3 g/dL (32-36); Mean Corpuscular Volume 90.1 fL (80-94); Mean Platelet Vol. 9.3 fl (6.2-12.0); Monocyte# 0.42 X10^3/uL; Monocyte% 6.8 % (0-10); NRBC Flagged by Analyzer 0 % (0-5); Neutrophil # 3.72 X10^3/uL (2.7-7.7); Neutrophil % 60.5 % (47-70); Platelet Count 199 K/mm3 (150-450); RBC Distribution Width CV 12.7 % (11.6-14.6); RBC Distribution Width SD 41.8 fl (35.1-43.9); Red Blood Count 4.64 M/mm3 (4.6-6.2); White Blood Count 6.1 K/mm3 (4.4-11.0)
[2020-06-17 07:33] LABS: AST(SGOT) 16 U/L (15-37); Alanine Aminotransfer ALT/SGPT 22 U/L (16-61); Albumin, Serum 3.2 g/dL (3.2-5.0); Alkaline Phosphatase 79 U/L (45-117); Anion Gap 4 (5-15); BUN 17 mg/dL (7-18); BUN/Creat Ratio 19.5 RATIO (10-20); Calcium,Total 8.6 mg/dL (8.5-10.1); Chloride 110 mmol/L (98-107); Creatinine, Serum 0.87 mg/dL (0.70-1.30); EST Glomerular Filtration Rate 93 mL/min (>60); Est Glom Filt Rate - Afr Amer 112 mL/min (>60); Estimated Creatinine Clearance 97.13 ml/min; Globulin 3.2 g/dL (2.2-4.2); Glucose 78 mg/dL (74-106); Protein, Total 6.4 g/dL (6.4-8.2); Sodium Level 139 mmol/L (136-145)
--- NOTE | 2020-06-17 08:46 | PCM.DC ---
- Discharge Diagnoses Current Active Problems: CAD status post PCI Reason(s) for Visit for Discharge Instructions: Abnormal stress test. Cardiac catheterization You will use the following diet at home:: Regular, Cardiac Your food should be the consistency of: Regular Discharge Activity: May Drive - May not drive: X48 hours, May Shower - May shower: Today, May Take a Tub Bath - May take a tub bath: In 7 days May resume sexual activity in: 2 weeks Weight Bearing Status: - - Avoid heavy exertional activity especially involving the right upper extremity until 06-22-2020 Call your doctor if your incision/area has: Continuous Slow Oozing, Sudden Increased Bleeding, Increased Pain/ Swelling, Increased Redness, Foul Smelling Discharge, Swelling at the incision site Call your doctor if you observe: Fever of 101 or Higher, Coldness, Increased Pain, Numbness or Tingling, Change in Color, Shortness of breath, Fainting spells, Chest pain, Increased palpitations (irregular heartbeat) Remove Dressing in (days):: 1 Cleanse incision/area with: Soap & Water Additional Instructions: [facility]: Plan for them to contact you regarding future evaluation for coronary artery bypass grafting surgery procedure Allergies/Adverse Reactions: Allergies No Known Allergies Allergy (Verified 05/07/20 15:32) Medications to take at Discharge aspirin 81 mg tablet,delayed release 81 mg PO DAILY 05/05/20 escitalopram oxalate 20 mg tablet 20 mg PO DAILY 05/05/20 metoprolol tartrate 25 mg tablet 25 mg PO BID 05/05/20 clopidogrel 75 mg tablet 75 mg PO DAILY #30 tab 06/08/20 atorvastatin 40 mg tablet 40 mg PO QHS 06/16/20 Aspirin E.C. [Ecotrin] 81 mg PO DAILY@0800 tablet 06/17/20 Atorvastatin Calcium [Lipitor] 40 mg PO QHS #90 tab 06/17/20 Clopidogrel Bisulfate [Plavix] 75 mg PO DAILY tablet 06/17/20 Metoprolol Tartrate [Lopressor (beta dom)] 25 mg PO BID tablet 06/17/20 The following prescriptions were given: Atorvastatin Calcium [Lipitor] 40 mg PO QHS #90 tab Transmission Status: Pending to [facility] Primary Care Physician: Angel Guzman MD [Primary Care Provider] - Test Results: Test results from this visit will be discussed in further detail at your follow-up appointment, if applicable. Please Follow Up With: [facility] When: Office to arrange follow up visit
--- NOTE | 2020-06-17 08:50 | PCM.DC.SUM ---
Discharge Date and Diagnosis Date of Admission: 06/16/20 Date of Discharge: 06/17/20 - Primary Discharge Diagnosis Acute Problems: CAD - Secondary Discharge Diagnosis Chronic Problems: Chronic Problems (Last Updated 06/16/20 @ 14:37 by Patricia Watt) S/P coronary artery stent placement (Chronic ~06/16/20) PCI/JACQUELINE to LCX and RCA 06/17/20 Atherosclerotic heart disease of [place] coronary artery without angina pectoris (Chronic) Essential hypertension (Chronic) Hospital Course and Treatment Procedures: Cardiac catheterization, - - Cardiac intervention: PCI: PTCA/stent to the LCx and RCA Summary of Care Provided: The patient is a 70 year old white male with history of paroxysmal atrial fibrillation who presented for outpatient evaluation based upon an abnormal stress nuclear imaging study for diagnostic cardiac catheterization. Diagnostic cardiac catheterization revealed multivessel CAD including LAD ostial disease, LCx proximal disease, and RCA mid disease. The overall LV systolic function appeared to be preserved with an estimated LVEF of 60%. The patient's case was discussed with Dr. Nathan of interventional cardiology and Dr. Benson of [facility] CT Surgery. The consensus was to proceed with PCI of the LCx and RCA systems and have the patient be evaluated by CT surgery for future elective minimally invasive DEL CID to the LAD surgery. Thus the patient underwent LCx and RCA PCI without adverse event/complication. He was monitored overnight. He appeared to be symptomatically and hemodynamically stable. Thus it was felt the patient was stable to be released home for continued outpatient cardiology and CT surgery follow-up. [] Subjective: The patient appeared to be awake and alert no acute symptoms and resting comfortably. - Physical Exam Vitals/I&O's: Vital Signs Temp Pulse Resp BP Pulse Ox 97.3 F L 55 L 16 112/76 96 06/17/20 03:00 06/17/20 07:00 06/17/20 03:00 06/17/20 03:00 06/17/20 03:00 Oxygen Delivery Method Room Air Weight: 196 lb 3.382 oz Body Mass Index (BMI) 24.5 Intake and Output for Last 24 Hours 06/15/20 06/16/20 06/17/20 23:59 23:59 23:59 Intake Total 1285 / 1285 50 / 50 Balance 1285 / 1285 50 / 50 General: Alert, Oriented x3, Cooperative, No apparent distress, Well developed, Well nourished HEENT: Atraumatic, PERRLA, EOMI, Normocephalic Neck: No JVD Lungs: Clear to auscultation Cardiovascular: Regular rate, Normal S1, Normal S2 Abdomen: Bowel Sounds Present, Soft, Non Tender Extremities: No edema Neurological: Neuro grossly intact Psych/Mental Status: Normal Affect Comment: Right radial artery: Pulse 2+/4+: No bruit: No hematoma Laboratory Results 06/16/20 11:30: Activated Clotting Time 224 H 06/17/20 06:05: WBC 6.1, RBC 4.64, Hgb 13.9, Hct 41.8, MCV 90.1, MCH 30.0, MCHC 33.3, RDW Std Deviation 41.8, RDW Coeff of [place] 12.7, Plt Count 199, MPV 9.3, Immature Gran % (Auto) 0.200, Neut % (Auto) 60.5, Lymph % (Auto) 28.2, [place] % (Auto) 6.8, Eos % (Auto) 3.3, Baso % (Auto) 1.0, Absolute Neuts (auto) 3.7, Absolute Lymphs (auto) 1.73, Nucleated RBC % 0 06/17/20 06:05: Sodium 139, Potassium 4.0, Chloride 110 H, Carbon Dioxide 25.0, Anion Gap 4 L, BUN 17, Creatinine 0.87, Estim Creat Clear Calc 97.13, Est GFR (MDRD) Af Amer 112, Est GFR (MDRD) Non-Af 93, BUN/Creatinine Ratio 19.5, Glucose 78, Calcium 8.6, Total Bilirubin 0.80, AST 16, ALT 22, Alkaline Phosphatase 79, Total Protein 6.4, Albumin 3.2, Globulin 3.2, Albumin/Globulin Ratio 1.0 Current Medications Acetaminophen (Acetaminophen 325 Mg Tablet) 650 mg PO Q6H PRN PRN PRN Reason: HEADACHE Last Admin: 06/16/20 14:53 Dose: 650 mg Documented by: Aspirin (Aspirin E.C. 81 Mg Tablet) 81 mg PO DAILY@0800 BRINA Atorvastatin Calcium (Atorvastatin Calcium 40 Mg Tablet) 40 mg PO QHS BRINA Last Admin: 06/16/20 20:58 Dose: 40 mg Documented by: Atropine Sulfate (Atropine Sulfate 1 Mg/10 Ml Syringe) 0.5 mg IV UD PRN PRN Reason: HR <50 bpm Clopidogrel Bisulfate (Clopidogrel Bisulfate 75 Mg Tablet) 75 mg PO DAILY [facility] Heparin Sodium (Beef Lung) (Heparin Lock 500 Unit/5 Ml In 10 Ml Syringe) 500 unit IV UD PRN PRN Reason: HEPARIN FLUSH Labetalol HCl (Labetalol (Prefilled) 20 Mg/4 Ml) 5 mg IV X1 PRN PRN Reason: SBP >160 when pulling sheath Stop: 06/18/20 12:42 Metoprolol Tartrate (Metoprolol Tartrate 25 Mg Tablet) 25 mg PO BID [facility] Last Admin: 06/16/20 22:58 Dose: Not Given Documented by: Sodium Chloride (0.9% Normal Saline 500 Ml Iv.Soln.) 500 ml IV BOLUS PRN PRN Reason: VASO-VAGAL PROTOCOL Discharge Activity: May Drive - May not drive: X48 hours, May Shower - May shower: Today, May Take a Tub Bath - May take a tub bath: In 7 days May resume sexual activity in: 2 weeks Weight Bearing Status: - - Avoid heavy exertional activity especially involving the right upper extremity until 06-22-2020 Call your doctor if your incision/area has: Continuous Slow Oozing, Sudden Increased Bleeding, Increased Pain/ Swelling, Increased Redness, Foul Smelling Discharge, Swelling at the incision site Call your doctor if you observe: Fever of 101 or Higher, Coldness, Increased Pain, Numbness or Tingling, Change in Color, Shortness of breath, Fainting spells, Chest pain, Increased palpitations (irregular heartbeat) Remove Dressing in (days):: 1 Cleanse incision/area with: Soap & Water Home Medications: Medications to take at Discharge aspirin 81 mg tablet,delayed release 81 mg PO DAILY 05/05/20 escitalopram oxalate 20 mg tablet 20 mg PO DAILY 05/05/20 metoprolol tartrate 25 mg tablet 25 mg PO BID 05/05/20 clopidogrel 75 mg tablet 75 mg PO DAILY #30 tab 06/08/20 atorvastatin 40 mg tablet 40 mg PO QHS 06/16/20 Aspirin E.C. [Ecotrin] 81 mg PO DAILY@0800 tablet 06/17/20 Atorvastatin Calcium [Lipitor] 40 mg PO QHS #90 tab 06/17/20 Clopidogrel Bisulfate [Plavix] 75 mg PO DAILY tablet 06/17/20 Metoprolol Tartrate [Lopressor (beta dom)] 25 mg PO BID tablet 06/17/20 Following Prescriptions Were Given to Patient: Atorvastatin Calcium [Lipitor] 40 mg PO QHS #90 tab Transmission Status: Pending to [facility] Primary Care Physician: Angel Guzman MD [Primary Care Provider] - Please Follow Up With: [facility] When: Office to arrange follow up visit Disposition: Home Minutes spent on discharge:: 45 Patient Condition:: Stable Medical Necessity - Tobacco Use Smoking Status: Never smoker Meaningful Use Info Meaningful Use Diagnoses (Choose all that apply): None applicable
[2020-06-17 09:00] VITALS: BP 124/77; PULSE 66; RESP 18; TEMP 36.7; O2SAT 96
--- NOTE | 2020-06-17 09:33 | CL.I_ITS ---
Patient Name: ESTUARDO SMITH Study Date: 06/16/2020 Performing: Aurea Nathan MD Ht: 75 inches 191 cm : 1950 Wt: 196.5 lbs 89 kg Age: 70 Gender: male BSA: 2.18 PROCEDURE(S) PERFORMED NY54-NRD W OR WO PTCA, SINGLE CORONARY ARTERY [id number] W OR WO PTCA, SINGLE CORONARY ARTERY CLINICAL PROFILE AND CO-MORBIDITIES Indications: Suspected CAD, Cardiac Arrythmia Heart Failure: None Stress/Imaging Date: 05/28/2020 Stress Test with SPECT MPI: Positive Angina Classification Anginal Classification w/in 2 Weeks: Anginal Equivalent Dyspnea CAD Presentations: Other: dyspnea on exertion CONCLUSIONS Successful JACQUELINE to mRCA and pLCx RECOMMENDATIONS DESCRIPTION OF PROCEDURE The patient arrived to the procedure lab. The risks and benefits of the procedure as well as a full d escription of our services here and current unavailability of surgical backup were fully explained to the patient and/or their significant other prior to the catheterization. The Timeout was completed, verifying the correct patient and procedure. The patient's procedural site was prepped and draped in the usual fashion. Local anesthetic was given subcutaneously to right radial region with Lidocaine 2% Using a modified Seldinger technique,arterial access was obtained via the right radial artery, a 6Fr sheath was inserted. Right Coronary Artery selective angiography was then performed in multiple view s using a 5 Fr. 4.0 [place] catheter. Left Coronary Artery selective angiography was performed in multi ple views using a 5 Fr. 4.0 [place] catheter. Left Coronary Artery selective angiography was performed in multiple views using a 5 Fr. JL3.5 catheter. Left Ventriculography was performed in [place]UR[place] projection using a 5 Fr. Pigtail catheter. LV to AO pullback pressures were then recorded.The images were reviewed and options discussed. A decision was then made to proceed with an Intervention, IVUS o r other adjunct procedure. JR 4 Guide catheter was inserted and engaged into the RCA. [place] Guide wire was advanced to the RCA . Emerge 2.0x8 Balloon catheter was inserted. PTCA balloon inflated at 8 atms for 30 secs. Angiogram performed post balloon dilatation. Synergy 3.50x12 Drug Eluting stent was inserted. Angiogram perform ed post stent deployment. XB 3.5 Guide catheter was inserted and engaged into the LCA. [place] Guide wire was advanced to the Circumflex. Emerge 3.00x12 Balloon catheter was inserted. PTCA balloon inflated at 6 atms for 11 secs. PTCA balloon inflated at 6 atms for 9 secs. Angiogram performed post balloon d ilatation. Synergy 3.50x16 Drug Eluting stent was inserted. Angiogram performed post stent deployment . [place] Emerge 3.50x8 Balloon catheter was inserted. Angiogram performed post balloon dilatation. The arterial sheath was pulled and a TR Band was applied for hemostasis w/ 15ml air INTERVENTION INFORMATION LESION SITE: RCA (Mid) Lesion Complexity: High/C, chronic total occlusion: No, lesion at bifurcation: Yes, thrombus present: No, lesion length: 8 mm, culprit lesion: Yes, Previously treated lesion: No Pre Stenosis: 90 % Pre intervention LATOSHA flow: 3 PROCEDURE: Drug Eluting Stent with pre dilatation. Post Stenosis: 0 % Post intervention LATOSHA flow: 3 Lesion Devices: [place] .014 [place] Straight 190cm Syncbaktronic 6 Fr JR4.0 100cm Guide Catheter Bracco 100cc Isovue [place] Sci EMERGE MR 2.00x08 BALLOON [place] Sci Synergy MR JACQUELINE 3.50x12 LESION SITE: Circumflex (Proximal) Lesion Complexity: High/C, chronic total occlusion: No, lesion at bifurcation: No, thrombus present: No, lesion length: 12 mm, culprit lesion: Yes, Previously treated lesion: No Pre Stenosis: 75 % Pre intervention LATOSHA flow: 3 PROCEDURE: Drug Eluting Stent with pre and post dilatation Post Stenosis: 0 % Post intervention LATOSHA flow: 3 Lesion Devices: [place] .014 [place] Straight 190cm [place] 6 Fr XB3.5 100cm Guide Catheter [place] Sci EMERGE MR 3.00x12 BALLOON [place] Sci Synergy MR JACQUELINE 3.50x16 [place] Sci NC EMERGE MR 3.50x08 BALLOON COMPLICATIONS No Complications PROCEDURE MEDICATIONS Versed 1 mg IV Fentanyl 50 mcg IV Oxygen: 2 L/min via nasal cannula Heparin diluted in 23cc Heparinized saline. Patient given 10cc IA of this solution. 06/16/2020 09:33: 02 Heparin 7000 unit(s) IV 06/16/2020 11:01:06 Nitro 100 mcg IC 06/16/2020 11:04:47 SUMMARY OF HEMODYNAMIC DATA Time AIR REST ECG 08:13:34 AO 117/61 (88) SA 09:41:45 LV 149/-1, 16 09:56:51 LV 136/-8, 16 09:56:57 LV 127/-4, 22 09:58:02 LVp 116/-7, 6 09:58:06 AOp 135/67 (94) 09:58:11 AO 154/88 (40) 11:45:44 Signed By Aurea Nathan MD On 06/17/2020 09:33:11 Aurea Nathan MD
[2020-06-17 09:36] VITALS: PULSE 60
[2020-06-17] MEDS: Aspirin E.C. 81 MG Tablet PO (09:36)
[2020-06-17] MEDS: Clopidogrel Bisulfate 75 MG Tablet PO (09:36)
== END 2020-06-17 08:50 | disposition home or self-care (01) ==
LOC: CLSP 07:56 → PCU 06-17 10:32
PROVIDERS: PCP Family Medicine; Referring Provider Internal Medicine Cardiovascular Disease; Visit Provider Internal Medicine Cardiovascular Disease
DX: I25.10 Atherosclerotic heart disease of native coronary artery without angina pectoris (principal); I48.0 Paroxysmal atrial fibrillation; I10 Essential (primary) hypertension; E04.2 Nontoxic multinodular goiter; R06.02 Shortness of breath; Z79.82 Long term (current) use of aspirin; Z79.02 Long term (current) use of antithrombotics/antiplatelets; Z79.899 Other long term (current) drug therapy
CPT/HCPCS: 36415; 71046; 80048; 80053; 85025; 85347; 85610; 85730; 92928; 93005; 93458; 99152; 99153; J7030; J7040; Q9967; C1725; C1769; C1874; C1887; C1894; C9600

== ENCOUNTER → 2020-07-06 09:20 | Outpatient (CLI) | payer MEDICARE, OTHER, SELFPAY ==
[2020-06-16 12:22] VITALS: BMI 24.5
--- NOTE | 2020-07-06 09:21 | US_ITS ---
STUDY: THYROID ULTRASOUND REASON FOR EXAM: Male, 70 years old. Nodules. TECHNIQUE: Ultrasound evaluation of the thyroid was performed with real-time and static hart-scale imaging. COMPARISON: June 11, 2019. FINDINGS: RIGHT LOBE: The right lobe of the thyroid gland measures 5.4 x 1.9 x 1.9 cm. There is a homogeneous echotexture. Multiple nodules, upper pole solid nodule measuring 1.1 x 0.4 x 0.4 cm, complex cystic nodule measuring 0.6 x 0.5 x 0.4 cm, mid pole solid nodule measuring 0.7 x 0.5 x 0.4 cm and complex cystic measuring 0.7 x 0.4 x 0.4 cm. LEFT LOBE: The left lobe of the thyroid gland measures 5.2 x 1.9 x 1.8 cm. There is a homogeneous echotexture. Multiple nodules upper pole solid measuring 0.9 x 0.6 x 0.6 cm, 0.7 x 0.4 x 0.4 cm with calcifications, mid pole solid nodule measuring 1.3 x 1.1 x 0.8 cm and 1.5 x 1.1 x 0.7 cm with calcifications. ISTHMUS: The isthmus measures 3 mm. No nodules visualized.. The regional lymph nodes are normal. US/Thyroid IMPRESSION: The thyroid gland is enlarged not significantly changed. Appearance suggests multinodular goiter. Multiple solid and complex cystic nodules bilaterally. The nodules on the right have not significantly changed. New 1.5 cm solid nodule with calcifications mid pole left lobe. Slight increase in size of previously noted solid nodule midpole left lobe. Electronically Signed: Adriano Estrella MD at 3:44 EST , Service support ,
== END ==
PROVIDERS: PCP Family Medicine; Referring Provider Family Medicine; Visit Provider Family Medicine
DX: E04.1 Nontoxic single thyroid nodule (principal)
CPT/HCPCS: 76536

== ENCOUNTER → 2021-01-14 08:29 | Outpatient (CLI) | payer MEDICARE, OTHER, SELFPAY ==
[2021-01-13 08:55] VITALS: BMI 24.2
[2021-01-14 10:09] LABS: Absolute Lymphocyte Count 1.96 X10^3/uL (0.83-4.51); Absolute Neutrophil Count 3.2 X10^3/uL (2.0-7.7); Basophil# 0.05 X10^3/uL; Basophil% 0.9 % (0-1); Eosinophil# 0.25 X10^3/uL; Eosinophils% 4.3 % (0-5); Hematocrit 45.3 % (40-54); Hemoglobin 14.7 g/dL (13.0-16.5); Lymphocyte # 1.96 X10^3/ul (0.83-4.51); Lymphocyte % 33.3 % (19-41); Mean Corp Hgb Conc 32.5 g/dL (32-36); Mean Corpuscular Hgb 28.9 pg (27.0-32.0); Mean Platelet Vol. 9.6 fl (6.2-12.0); Monocyte% 6.8 % (0-10); NRBC Flagged by Analyzer 0 % (0-5); Neutrophil # 3.21 X10^3/uL (2.7-7.7); Neutrophil % 54.5 % (47-70); Platelet Count 242 K/mm3 (150-450); RBC Distribution Width CV 13.1 % (11.6-14.6); RBC Distribution Width SD 42.8 fl (35.1-43.9); Red Blood Count 5.09 M/mm3 (4.6-6.2); White Blood Count 5.9 K/mm3 (4.4-11.0)
[2021-01-14 10:43] LABS: ALB/GLOB Ratio 1.1 RATIO (0.9-2.4); AST(SGOT) 42 U/L (15-37); Alanine Aminotransfer ALT/SGPT 59 U/L (16-61); Albumin, Serum 3.5 g/dL (3.2-5.0); Alkaline Phosphatase 113 U/L (45-117); Anion Gap 5 (5-15); BUN 20 mg/dL (7-18); BUN/Creat Ratio 19.4 RATIO (10-20); Calcium,Total 8.4 mg/dL (8.5-10.1); Chloride 106 mmol/L (98-107); Cholesterol 114 mg/dL (200); Creatinine, Serum 1.03 mg/dL (0.70-1.30); EST Glomerular Filtration Rate 76 mL/min (>60); Est Glom Filt Rate - Afr Amer 92 mL/min (>60); Globulin 3.3 g/dL (2.2-4.2); Glucose 89 mg/dL (74-106); High Density Lipoprotein 57 mg/dL; Magnesium 2.1 mg/dL (1.6-2.6); Potassium 4.3 mmol/L (3.5-5.1); Protein, Total 6.8 g/dL (6.4-8.2); Sodium Level 140 mmol/L (136-145); Triglycerides 47 mg/dL; Very Low Density Lipoprotein 9 mg/dL (5-40)
== END ==
PROVIDERS: PCP Family Medicine; Visit Provider Family Medicine
DX: I48.91 Unspecified atrial fibrillation (principal)
CPT/HCPCS: 36415; 80053; 80061; 83735; 84443; 85025

== ENCOUNTER → 2021-02-22 11:20 | Outpatient (CLI) | payer MEDICARE, OTHER, SELFPAY ==
[2021-01-13 08:55] VITALS: BMI 24.2
--- NOTE | 2021-02-22 11:22 | US_ITS ---
STUDY: THYROID ULTRASOUND REASON FOR EXAM: Male, 70 years old. Abnormal TSH, known nodules TECHNIQUE: Ultrasound evaluation of the thyroid was performed with real-time and static hart-scale imaging. COMPARISON: 07/06/2020 FINDINGS: RIGHT LOBE: The right lobe of the thyroid gland measures 5.6 x 1.6 x 1.8 cm. There is a homogeneous echotexture. There are multiple stable solid, and solid/cystic nodules. Largest again contains calcifications and measures 1.2 x 0.8 x 0.5 cm. LEFT LOBE: The left lobe of the thyroid gland measures 5.1 x 2.3 x 2.0 cm. There is a homogeneous echotexture. Multiple stable solid and solid/cystic nodules, largest again measures approximately 1.4 x 0.8 x 1.1 cm and contains calcifications. ISTHMUS: The isthmus measures 0.1 cm. There is a stable isthmus nodule measuring 0.5 x 0.4 x 0.3 cm. The regional lymph nodes are normal. US/Thyroid IMPRESSION: Enlarged homogeneous thyroid with stable bilateral solid and solid/cystic nodules. Findings again suggestive of goiter. No significant interval change since the previous study, six-month follow-up recommended to assess stability Electronically Signed: Ankit Pat MD at 10:50 EDT , Service support ,
== END ==
PROVIDERS: PCP Family Medicine; Referring Provider Surgery; Visit Provider Surgery
DX: E04.2 Nontoxic multinodular goiter (principal)
CPT/HCPCS: 76536

== ENCOUNTER 2021-08-04 08:24 | Outpatient (CLI) | payer MEDICARE, OTHER, SELFPAY ==
[2021-08-04 10:23] LABS: Absolute Lymphocyte Count 2.21 X10^3/uL (0.83-4.51); Absolute Neutrophil Count 3.2 X10^3/uL (2.0-7.7); Basophil# 0.06 X10^3/uL; Eosinophil# 0.27 X10^3/uL; Eosinophils% 4.4 % (0-5); Hematocrit 44.8 % (40-54); Lymphocyte # 2.21 X10^3/ul (0.83-4.51); Lymphocyte % 35.8 % (19-41); Mean Corp Hgb Conc 33.5 g/dL (32-36); Mean Corpuscular Hgb 30.1 pg (27.0-32.0); Mean Corpuscular Volume 89.8 fL (80-94); Mean Platelet Vol. 9.6 fl (6.2-12.0); Monocyte# 0.42 X10^3/uL; Monocyte% 6.8 % (0-10); NRBC Flagged by Analyzer 0 % (0-5); Neutrophil % 51.8 % (47-70); Platelet Count 221 K/mm3 (150-450); RBC Distribution Width CV 12.6 % (11.6-14.6); RBC Distribution Width SD 41.1 fl (35.1-43.9); Red Blood Count 4.99 M/mm3 (4.6-6.2); White Blood Count 6.2 K/mm3 (4.4-11.0)
[2021-08-04 10:38] LABS: AST(SGOT) 24 U/L (15-37); Alanine Aminotransfer ALT/SGPT 44 U/L (16-61); Albumin, Serum 3.5 g/dL (3.2-5.0); Alkaline Phosphatase 98 U/L (45-117); Anion Gap 7 (5-15); BUN 17 mg/dL (7-18); BUN/Creat Ratio 15.9 RATIO (10-20); Chloride 109 mmol/L (98-107); Cholesterol 112 mg/dL (200); Creatinine, Serum 1.07 mg/dL (0.70-1.30); EST Glomerular Filtration Rate 73 mL/min (>60); Est Glom Filt Rate - Afr Amer 88 mL/min (>60); Globulin 3.4 g/dL (2.2-4.2); Glucose 89 mg/dL (74-106); High Density Lipoprotein 58 mg/dL; Magnesium 2.2 mg/dL (1.6-2.6); PSA,Total - Annual Screen 2.83 ng/mL (0.00-4.00); Potassium 4.1 mmol/L (3.5-5.1); Protein, Total 6.9 g/dL (6.4-8.2); Sodium Level 140 mmol/L (136-145); Triglycerides 78 mg/dL; Very Low Density Lipoprotein 16 mg/dL (5-40)
== END 2021-08-04 23:59 | disposition short-term general hospital (02) ==
LOC: MFPLAB 08:27
PROVIDERS: PCP Family Medicine; Referring Provider Family Medicine; Visit Provider Family Medicine
DX: I25.10 Atherosclerotic heart disease of native coronary artery without angina pectoris (principal); I48.91 Unspecified atrial fibrillation; Z12.5 Encounter for screening for malignant neoplasm of prostate
CPT/HCPCS: 36415; 80053; 80061; 83735; 84153; 85025; G0103

== ENCOUNTER 2021-08-16 10:41 | Outpatient (CLI) | payer MEDICARE, OTHER, SELFPAY ==
--- NOTE | 2021-08-16 10:45 | ECHOD_ITS ---
Reason For Study: SOB Procedure This was a 2D Doppler, Color Flow transthoracic echocardiogram. Exam performed in department. Left Ventricle Normal LV size. Left ventricular systolic function is normal. The estimated ejection fraction is 55 %. Stage 1 diastolic dysfunction. No regional wall motion abnormalities noted. Right Ventricle Normal RV size. Normal systolic function. Atria Normal left atrium. Normal right atrium. Mitral Valve Normal mitral valve. Trivial eccentric mitral valve insufficiency. Tricuspid Valve Normal tricuspid valve. Mild tricuspid valve insufficiency. Aortic Valve Trisinus/trileaflet aortic valve. Pulmonic Valve Normal pulmonic valve. Mild (1+) pulmonic valve insufficiency. Great Vessels Normal aortic root. The pulmonary artery is normal size. Inferior vena cava collapse with respiration. Pericardium/Pleural No pericardial effusion. MMode/2D Measurements & Calculations LVIDd: 4.9 cm IVSd: 1.2 cm Ao root diam: 3.4 cm LVIDs: 3.3 cm LVPWd: 1.0 cm LA dimension: 4.2 cm RVDd: 4.4 cm FS: 31.7 % LAV(MOD-bp): 54.9 ml LA A4 area: 17.9 cm2 RA A4 area: 17.9 cm2 LAV(MOD-bp) Indexed: 25.5 ml/m2 LAV(MOD-sp2): 55.8 ml LAV(MOD-sp4): 53.0 ml Time Measurements MV dec time: 0.27 sec Doppler Measurements & Calculations MV E max torin: 52.6 cm/sec Lat Peak E' Torin: 11.2 cm/sec Med Peak E' Torin: 6.8 cm/sec MV A max torin: 64.2 cm/sec E/E' lat: 4.7 E/E' med: 7.8 MV E/A: 0.82 MV V2 max: 71.7 cm/sec MV P1/2t max torin: 60.0 cm/sec Ao V2 max: 95.4 cm/sec MV max P.1 mmHg MV P1/2t: 107.8 msec Ao max P.6 mmHg MV V2 mean: 34.7 cm/sec MV dec slope: 163.1 cm/sec2 MV mean P.60 mmHg MVA(P1/2t): 2.0 cm2 MV V2 VTI: 28.4 cm LV V1 max: 82.8 cm/sec PA V2 max: 88.6 cm/sec TR max torin: 217.0 cm/sec LV V1 max P.7 mmHg TR max P.8 mmHg ECHO/Echo Complete Interpretation Summary Normal LV size. Left ventricular systolic function is normal. The estimated ejection fraction is 55 %. Stage 1 diastolic dysfunction. Structurally normal valves. Ordering Physician: Angel Guzamn Referring Physician: Angel Guzman Performed By: Terry Way RCS
== END 2021-08-16 23:59 | disposition short-term general hospital (02) ==
LOC: CVS 10:42
PROVIDERS: PCP Family Medicine; Referring Provider Family Medicine; Visit Provider Family Medicine
DX: R06.02 Shortness of breath (principal)
CPT/HCPCS: 93306

== ENCOUNTER 2022-03-13 02:16 | Emergency (ER) | payer MEDICARE, OTHER, SELFPAY ==
[2022-03-13 02:17] VITALS: BP 142/74; PULSE 56; RESP 18; TEMP 36.5; O2SAT 98; BMI 26.1
--- NOTE | 2022-03-13 02:34 | EKG12_ITS ---
Test Reason : CP Blood Pressure : / mmHG Vent. Rate : 057 BPM Atrial Rate : 057 BPM P-R Int : 154 ms QRS Dur : 096 ms QT Int : 432 ms P-R-T Axes : 021 -37 004 degrees QTc Int : 420 ms Sinus bradycardia Left axis deviation Nonspecific ST abnormality Abnormal ECG Confirmed by BRONSON SUGGS, LEIF ([id number]), social media editor ALEJA PAN ([id number]) on 03/15/2022 7:30:29 AM Referred By: MAI Confirmed By:LEIF DOBSON MD
--- NOTE | 2022-03-13 02:34 | RAD_ITS ---
EXAM: XR CHEST, 1 VIEW CLINICAL INDICATION: chest pain TECHNIQUE: Frontal view of the chest. This report was created using [facility] report generation technology. COMPARISON: None. FINDINGS: LUNGS AND PLEURAL SPACES: Unremarkable. No consolidation or edema. No pneumothorax. No effusion. HEART: Enlarged cardiac silhouette which is a change from before. MEDIASTINUM: Central airways and mediastinal contour are unremarkable. BONES/JOINTS: Degenerative changes of the acromioclavicular joints and spine. SOFT TISSUES: Unremarkable. RAD/Chest 1 View (Portable) IMPRESSION: No acute disease. Electronically Signed: Medhat Kasper MD at 2:55 EDT ,
[2022-03-13 02:42] VITALS: O2SAT 97
[2022-03-13] MEDS: Aspirin 81 MG TAB.CHEW 162 MG PO (02:42)
[2022-03-13 02:46] LABS: Absolute Lymphocyte Count 2.39 X10^3/uL (0.83-4.51); Absolute Neutrophil Count 4.6 X10^3/uL (2.0-7.7); Basophil# 0.04 X10^3/uL; Basophil% 0.5 % (0-1); Eosinophil# 0.35 X10^3/uL; Eosinophils% 4.4 % (0-5); Hematocrit 42.9 % (40-54); Hemoglobin 14.5 g/dL (13.0-16.5); Lymphocyte # 2.39 X10^3/ul (0.83-4.51); Lymphocyte % 30.1 % (19-41); Mean Corp Hgb Conc 33.8 g/dL (32-36); Mean Corpuscular Hgb 30.5 pg (27.0-32.0); Mean Corpuscular Volume 90.3 fL (80-94); Mean Platelet Vol. 9.4 fl (6.2-12.0); Monocyte% 6.3 % (0-10); NRBC Flagged by Analyzer 0 % (0-5); Neutrophil # 4.64 X10^3/uL (2.7-7.7); Neutrophil % 58.4 % (47-70); Platelet Count 204 K/mm3 (150-450); RBC Distribution Width CV 12.4 % (11.6-14.6); RBC Distribution Width SD 41.1 fl (35.1-43.9); Red Blood Count 4.75 M/mm3 (4.6-6.2); White Blood Count 7.9 K/mm3 (4.4-11.0)
--- NOTE | 2022-03-13 02:59 | ED.VIS.CHEST ---
HPI History of Present Illness Chief Complaint: Chest Pain Informant: patient and spouse/S.O. Onset/Context/Timing Onset: Hours (1) Activity at onset: sudden, activity on onset and sleep Timing: Continuous Quality: Positive for Dull and Indigestion Location: Substernal (lower) Current Severity: Gone Maximum Severity: Severe Worsened By: Nothing; Not Worsened By Movement of Arm or Breathing Relieved By: Antacids (possibly -- see below) Associated Symptoms: Positive for Nausea, Vomiting, Diaphoresis and Dyspnea; Negative for Cough, Fever, Lightheadedness or Palpitations Narrative Narrative: Patient woke up suddenly in the middle of the night with chest discomfort and felt like indigestion. He took some antiacid and promptly vomited, he later took some more antiacid and the discomfort went away, he is unsure if this caused it to resolve or not. He had some tingling in his left fingertips. He was concerned that this could be his heart because around 2 years ago he had stents placed, followed by a CABG at [facility] in 08/2020. They were found on accident he had no chest discomfort with those. He states for the last week or 2 he has had some dyspnea with exertion but no chest discomfort like this. [facility] Medical History Abnormal stress test Atherosclerotic heart disease of unga coronary artery without angina pectoris Benign essential HTN Erectile dysfunction Multiple thyroid nodules New onset atrial fibrillation PAF (paroxysmal atrial fibrillation) Schwannoma Tenosynovitis of hand TMJ (dislocation of temporomandibular joint) Home Medications aspirin 81 mg tablet,delayed release (Adult Low Dose Aspirin) 81 mg PO DAILY heart health 05/05/20 [History Last Taken 06/16/20] escitalopram oxalate 20 mg tablet 20 mg PO DAILY depression 05/05/20 [History Last Taken 06/16/20] atorvastatin 40 mg tablet 40 mg PO QHS #90 tabs 06/23/21 [Rx Last Taken Unknown] clopidogrel 75 mg tablet 75 mg PO DAILY #90 tabs 09/24/21 [Rx Last Taken Unknown] metoprolol tartrate 25 mg tablet 12.5 mg PO BID blood pressure #90 tabs 11/15/21 [Rx Last Taken Unknown] Allergy/AdvReac Type Severity Reaction Status Date / Time chlorhexidine Allergy Intermediate rash Verified 03/13/22 02:21 [From Maddie] Family History Grandfather Cancer Diabetes Mother Hypertension CVA (cerebral vascular accident) Father Cancer Grandmother Hypertension Aunt CVA (cerebral vascular accident) Other Heart disease Surgical History H/O oral surgery H/O shoulder surgery History of coronary artery bypass surgery (~09/01/20) History of left heart catheterization (LHC) (~06/16/20) S/P arthroscopic surgery of left knee S/P arthroscopic surgery of right knee S/P coronary artery stent placement (~06/16/20) S/P rotator cuff repair Social History Smoking Status: Never smoker alcohol intake: current Alcohol type: beer substance use type: does not use caffeine: Yes ROS ROS ED Constitutional Constitutional ED: Reports sweats; Denies chills or fever(s) Eyes Eyes: Denies change in vision or diplopia ENT ENT ED: Denies rhinorrhea or sore throat Cardiovascular Cardiovascular: Reports chest pain; Denies palpitations Respiratory/Chest Respiratory/Chest: Reports dyspnea; Denies cough Gastrointestinal Gastrointestinal: Denies abdominal pain, diarrhea, nausea or vomiting Genitourinary Genitourinary ED: Denies dysuria or hematuria Musculoskeletal Musculoskeletal: Denies back pain or neck pain Integumentary Denies abscess or rash Neurologic Neurologic: Reports paresthesias LUE (Fingertips only mostly thumb); Denies headache(s) or weakness Psychiatric Psychiatric: Denies anxiety or suicidal thoughts EXAM Physical Exam Const Vital Signs: 03/13/22 02:17 03/13/22 02:22 03/13/22 02:42 Temperature 97.7 F L Temperature Source Temporal Pulse Rate 56 L Respiratory Rate 18 Respiratory Effort Normal Blood Pressure 142/74 H Blood Pressure Mean 96 Pulse Ox 98 97 Oxygen Delivery Method Room Air Room Air 03/13/22 04:16 Temperature Temperature Source Pulse Rate 58 L Respiratory Rate 18 Respiratory Effort Blood Pressure 134/77 H Blood Pressure Mean 96 Pulse Ox 97 Oxygen Delivery Method Room Air Positive well nourished and well developed General Appearance ED: well developed and NAD HEENT Reports moist mucous membranes normocephalic and atraumatic Eyes PERRL and EOMs intact bilaterally Neck full ROM and supple Chest Wall inspection of chest normal and palpation of chest normal Resp normal respiratory effort and clear to auscultation bilaterally Cardio regular rate, regular rhythm and no murmurs GI non-tender and non-distended Auscultation: normoactive bowel sounds Palpation: soft Back/Spine no CVA tenderness General Back: other FROM Extremity normal to inspection, no calf tenderness and no pedal edema General Extremety ED: Negative for edema, pulses abnormal or tenderness General Extremity: Negative for edema or pulses abnormal Neuro oriented x3, CN's II-XII intact bilaterally and no sensory deficits noted Sensorium / Orientation: awake and alert Motor Exam: strength 5/5 throughout Psych mental status grossly normal Skin no rashes or lesions noted and no wounds Heart Score History: Moderately Suspicious ECG: Normal Age: >/= 65 years Risk Factors: >/= 3 Risk Factors or History of CAD Troponin: </= Normal Limit Score: 5 MDM MDM MDM Narrative Medical decision making narrative: Work-up is negative including 2 troponins. His EKG shows a left axis but this is unchanged when you compared directly to prior EKGs. He had no recurrent symptoms while in the emergency department. At this time, I think his work-up was indicated because of his history of coronary disease and the other particulars of his history, but I do not think he needs to be admitted to the hospital for further provocative testing emergently. Follow-up advised. He is comfortable with that plan. Lab Data Attestation: I reviewed the patient's lab results. Labs: Laboratory Results - last 24 hr 03/13/22 03/13/22 03/13/22 02:25 02:25 04:45 WBC 7.9 RBC 4.75 Hgb 14.5 Hct 42.9 MCV 90.3 MCH 30.5 MCHC 33.8 RDW Std Deviation 41.1 RDW Coeff of [place] 12.4 Plt Count 204 MPV 9.4 Immature Gran % (Auto) 0.300 Neut % (Auto) 58.4 Lymph % (Auto) 30.1 [place] % (Auto) 6.3 Eos % (Auto) 4.4 Baso % (Auto) 0.5 Absolute Neuts (auto) 4.6 Absolute Lymphs (auto) 2.39 Nucleated RBC % 0 Sodium 143 Potassium 3.8 Chloride 109 H Carbon Dioxide 28.0 Anion Gap 6 BUN 26 H Creatinine 1.02 Estim Creat Clear Calc 81.69 Est GFR (MDRD) Af Amer 93 Est GFR (MDRD) Non-Af 77 BUN/Creatinine Ratio 25.5 H Glucose 96 Calcium 8.9 Troponin I High Sens 6 8 Radiography Chest X-Ray - ED: 1 View, Read by ED Physician and No Acute Disease Diagnostic Testing: Clinical Impression(s) from Imaging Studies Chest X-Ray 03/13/22 02:34 IMPRESSION: No acute disease. Electronically Signed: Medhat Kasper MD at 2:55 EDT , Rhythm Strip Rhythm Strip: Sinus Rhythm Rate: 60 Ectopy: None EKG Initial EKG: Attestation: I personally reviewed and interpreted this EKG as follows: Interpretation: Sinus Rhythm and No Acute Injury Pattern Comments: Left axis Prior EKG tracings: available for review Prior: Unchanged Discharge Plan Triage Chief Complaint: Chest Pain ED Provider: Praveen Dudley Dx/Rx/DC Orders Clinical Impression: Chest pain, Personal history of coronary artery disease Instructions: ED Chest Pain, Uncertain Cause Prescriptions: No Action escitalopram oxalate 20 mg tablet 20 mg PO DAILY aspirin [Adult Low Dose Aspirin] 81 mg tablet,delayed release (DR/EC) 81 mg PO DAILY metoprolol tartrate 25 mg tablet 12.5 mg PO BID Qty: 90 3RF atorvastatin 40 mg tablet 40 mg PO QHS Qty: 90 3RF clopidogrel 75 mg tablet 75 mg PO DAILY Qty: 90 3RF Primary Care Provider: Angel Guzman Referrals: Angel Guzman MD [Primary Care Provider] - 3-5 Days if not improving Disposition Disposition: Home, Self Care
[2022-03-13 03:10] LABS: Anion Gap 6 (5-15); BUN 26 mg/dL (7-18); BUN/Creat Ratio 25.5 RATIO (10-20); Calcium,Total 8.9 mg/dL (8.5-10.1); Chloride 109 mmol/L (98-107); Creatinine, Serum 1.02 mg/dL (0.70-1.30); EST Glomerular Filtration Rate 77 mL/min (>60); Est Glom Filt Rate - Afr Amer 93 mL/min (>60); Estimated Creatinine Clearance 81.69 ml/min; Glucose 96 mg/dL (74-106); Potassium 3.8 mmol/L (3.5-5.1); Sodium Level 143 mmol/L (136-145); Troponin-I HS (w/2H Reflex) 6 pg/mL (3.0-78.0)
[2022-03-13 04:16] VITALS: BP 134/77; PULSE 58; RESP 18; O2SAT 97
[2022-03-13 04:41] LABS: Reflex Troponin-HS? (from REC) Y
[2022-03-13 05:14] LABS: Troponin-I HS 8 pg/mL (3.0-78.0)
[2022-03-13 05:23] VITALS: BP 126/73; PULSE 50; RESP 18; O2SAT 94
== END 2022-03-13 05:23 | disposition home or self-care (01) ==
PROVIDERS: Emergency Provider Emergency Medicine; PCP Family Medicine; Visit Provider Emergency Medicine
DX: R07.9 Chest pain, unspecified (principal); I48.0 Paroxysmal atrial fibrillation; I25.10 Atherosclerotic heart disease of native coronary artery without angina pectoris; I10 Essential (primary) hypertension; Z95.1 Presence of aortocoronary bypass graft; Z95.5 Presence of coronary angioplasty implant and graft; Z79.02 Long term (current) use of antithrombotics/antiplatelets; Z79.82 Long term (current) use of aspirin; Z79.899 Other long term (current) drug therapy
CPT/HCPCS: 71045; 80048; 84484; 85025; 93005; 99285; A4216

== ENCOUNTER → 2022-05-30 | Outpatient (CLI) | payer MEDICARE, OTHER, SELFPAY ==
--- NOTE | 2022-05-30 12:15 | STRESSREP_ITS ---
Stress Test Report Date: 05-30-2022 Procedure: Exercise tolerance test/imaging study Indications: Shortness of breath/dyspnea on exertion; CAD; PCI; CABG Consent: Per the patient Procedure: The patient exercised on a Richard protocol for 11 minutes completing Stage III and 2 minutes of Stage IV achieving a peak heart rate of 146 bpm (97% predicted maximal heart rate) with resting blood pressure of 132/82 mmHg and a peak blood pressure 150/88 mmHg and a peak MET capacity of 13 METs. The baseline ECG demonstrated sinus bradycardia. The peak exercise ECG demonstrated no obvious ECG changes. There was a rare/isolated PVC during exercise. The functional capacity was considered good. There was no complaint of chest discomfort during exercise or recovery. The examination was discontinued secondary to dyspnea. Impression: 1. Technically adequate (percent predicted maximal heart rate greater than 85%) exercise tolerance test 2. Peak exercise ECG with no obvious ECG changes 3. There was a rare/isolated PVC during exercise 4. Nuclear images pending Myocardial perfusion imaging study: Technique: The patient was injected with 8.8 mCi of technetium 99m Cardiolite and subsequently rest SPECT Cardiolite nuclear imaging was obtained in the horizontal long, vertical long, and short axis views. The patient exercised on a Richard protocol for 11 minutes completing Stage III and 2 minutes of Stage IV achieving a peak heart rate of 146 bpm (97% predicted maximal heart rate) with resting blood pressure of 132/82 mmHg and a peak blood pressure 150/88 mmHg and a peak MET capacity of 13 METs. The patient was injected with 30.1 mCi of technetium 99m Cardiolite and subsequently stress SPECT Cardiolite nuclear imaging was obtained in the horizontal long, vertical long, and short axis views. A gated Cardiolite study at peak stress was obtained. Interpretation: Rest and stress SPECT Cardiolite nuclear imaging status post realignment, gerard lization, and attenuation correction, demonstrates the appearance of relative uniform tracer uptake and myocardial perfusion appearing within normal limits. There is end systolic thickening and brightening. The gated Cardiolite study demonstrates myocardial thickening and inward wall motion. The reported LVEF is 62%. Impression: 1. Rest and stress SPECT Cardiolite nuclear imaging demonstrate relative uniform tracer uptake and myocardial perfusion appearing within normal limits. 2. The gated Cardiolite study reports an LVEF of 62%. This note was generated with [employer] software. It may contain incorrect words, spelling, and punctuation that were not noted in checking the note before signing.
== END | disposition home or self-care (01) ==
LOC: CVS 07:09
PROVIDERS: PCP Family Medicine; Visit Provider Nurse Practitioner Family
DX: R06.02 Shortness of breath (principal); I48.0 Paroxysmal atrial fibrillation; I25.10 Atherosclerotic heart disease of native coronary artery without angina pectoris; I10 Essential (primary) hypertension; Z95.5 Presence of coronary angioplasty implant and graft; Z95.1 Presence of aortocoronary bypass graft
CPT/HCPCS: 78452; 93017; A9500; A4216

== ENCOUNTER → 2022-12-09 | Outpatient (CLI) | payer MEDICARE, OTHER, SELFPAY ==
[2022-12-09 10:54] LABS: Hematocrit 47.1 % (40-54); Hemoglobin 15.4 g/dL (13.0-16.5); Mean Corp Hgb Conc 32.7 g/dL (32-36); Mean Corpuscular Hgb 30.5 pg (27.0-32.0); Mean Corpuscular Volume 93.3 fL (80-94); Mean Platelet Vol. 9.7 fl (6.2-12.0); Platelet Count 255 K/mm3 (150-450); RBC Distribution Width CV 12.8 % (11.6-14.6); RBC Distribution Width SD 43.8 fl (35.1-43.9); Red Blood Count 5.05 M/mm3 (4.6-6.2); White Blood Count 7.4 K/mm3 (4.4-11.0)
[2022-12-09 11:22] LABS: Anion Gap 6 (5-15); BUN 22 mg/dL (7-18); BUN/Creat Ratio 21.8 RATIO (10-20); Calcium,Total 9.2 mg/dL (8.5-10.1); Chloride 109 mmol/L (98-107); Creatinine, Serum 1.01 mg/dL (0.70-1.30); EST Glomerular Filtration Rate 78 mL/min (>60); Est Glom Filt Rate - Afr Amer 94 mL/min (>60); Glucose 78 mg/dL (74-106); Magnesium 2.3 mg/dL (1.6-2.6); Potassium 4.1 mmol/L (3.5-5.1); Sodium Level 143 mmol/L (136-145)
== END | disposition home or self-care (01) ==
LOC: LAB 10:07
PROVIDERS: PCP Family Medicine; Visit Provider Physician Assistant Medical
DX: E04.2 Nontoxic multinodular goiter (principal); I48.0 Paroxysmal atrial fibrillation; I10 Essential (primary) hypertension; Z95.1 Presence of aortocoronary bypass graft; Z95.5 Presence of coronary angioplasty implant and graft; I25.10 Atherosclerotic heart disease of native coronary artery without angina pectoris
CPT/HCPCS: 36415; 80048; 83735; 84443; 85027

== ENCOUNTER → 2023-01-09 | Outpatient (CLI) | payer MEDICARE, OTHER, SELFPAY ==
--- NOTE | 2023-01-09 12:20 | US_ITS ---
STUDY: THYROID ULTRASOUND REASON FOR EXAM: Male, 72 years old. Thyroid nodules. TECHNIQUE: Ultrasound evaluation of the thyroid was performed with real-time and static hart-scale imaging. COMPARISON: Comparison is made with prior study February 22, 2021. FINDINGS: RIGHT LOBE: The right lobe of the thyroid gland is enlarged and measures 5.5 cm x 1.9 cm x 1.8 cm. There is a homogeneous echotexture. Multiple nodules are seen. The dominant nodule is cystic and solid and measures 1.1 cm x 0.65 x 0.4 cm. 3 other complex solid and cystic nodules are seen measuring less than 1 cm. LEFT LOBE: The left lobe of the thyroid gland is enlarged and measures 5.5 cm x 2.1 cm x 1.8 cm. There is a homogeneous echotexture. Multiple nodules are once again seen. The largest nodule measures 1.4 cm x 1.265 x 0.7 cm and is solid and cystic in nature. A similar appearing nodule measuring 1.3 cm x 1.1 cm x 0.9 cm is seen. There is been essentially no change as compared to prior examinations. ISTHMUS: The isthmus measures 3 mm. There is a 4 mm x 5 mm x 2 mm solid nodule in the isthmus. This is unchanged as well. The regional lymph nodes are normal. US/Thyroid IMPRESSION: Stable enlargement of the thyroid with stable bilateral solid and cystic nodules in both lobes as described. Electronically Signed: Singh Urias MD at 13:49 EDT ,
== END | disposition home or self-care (01) ==
LOC: US 12:19
PROVIDERS: PCP Family Medicine; Referring Provider Surgery; Visit Provider Surgery
DX: E04.2 Nontoxic multinodular goiter (principal)
CPT/HCPCS: 76536

== ENCOUNTER → 2023-01-11 | Outpatient (CLI) | payer MEDICARE, OTHER, SELFPAY ==
--- NOTE | 2023-01-11 12:40 | RAD_ITS ---
STUDY: X-RAY - LUMBAR SPINE REASON FOR EXAM: Male, 72 years old. Chronic low back pain. TECHNIQUE: 3 view(s) of the lumbar spine were obtained. COMPARISON: None FINDINGS: Normal lumbar lordosis. There is a dextroscoliosis of the lumbar spine. Grade 1 anterolisthesis of L5 on S1 due to spondylolysis of the pars interarticularis of the L5 vertebra. 50% loss of height of the superior endplate of the L5 vertebrae. There is multi-level degenerative disc disease with multi-level disc space narrowing. Spondylosis at the L1-L2 and L2-L3 levels. The soft tissue structures are unremarkable. RAD/Lumbar Spine 2 or 3 Views IMPRESSION: Grade 1 anterolisthesis of L5 on S1 with spondylolysis of the pars interarticularis of the L5 vertebrae. 50% loss of height of the superior endplate of the L5 vertebra. Electronically Signed: Singh Urias MD at 15:45 EDT ,
== END | disposition home or self-care (01) ==
LOC: MTRAD 12:38
PROVIDERS: PCP Family Medicine; Referring Provider Family Medicine; Visit Provider Family Medicine
DX: M54.50 Low back pain, unspecified (principal)
CPT/HCPCS: 72100

== ENCOUNTER → 2023-01-19 | Outpatient (CLI) | payer MEDICARE, OTHER, SELFPAY ==
[2023-01-19 12:39] LABS: Anion Gap 9 (5-15); BUN 19 mg/dL (7-18); BUN/Creat Ratio 16.5 RATIO (10-20); Calcium,Total 9.1 mg/dL (8.5-10.1); Chloride 108 mmol/L (98-107); Creatinine, Serum 1.15 mg/dL (0.70-1.30); EST Glomerular Filtration Rate 67 mL/min (>60); Est Glom Filt Rate - Afr Amer 81 mL/min (>60); Glucose 78 mg/dL (74-106); Magnesium 2.3 mg/dL (1.6-2.6); Potassium 4.1 mmol/L (3.5-5.1); Sodium Level 139 mmol/L (136-145)
== END | disposition home or self-care (01) ==
PROVIDERS: PCP Family Medicine; Referring Provider Nurse Practitioner Gerontology; Visit Provider Nurse Practitioner Gerontology
DX: I47.20 Ventricular tachycardia, unspecified (principal)
CPT/HCPCS: 36415; 80048; 83735

== ENCOUNTER → 2023-02-03 | Outpatient (CLI) | payer MEDICARE, OTHER, SELFPAY ==
--- NOTE | 2023-02-03 | ASPS_PTH ---
PATIENT: ESTUARDO SMITH LOC: [facility] U#:[id number] AGE/SX: 72/M ROOM: RE02/03/[address]: Dr. Raul Yan MD : 1950 BED: DIS: 02/03/2023 SPEC #: [id number] RECD: 02/03/23 16:29 STATUS: CRAIG ROD #: [id number] [place]: 02/03/23 00:[address]: Raul Yan DEPT: CYTOLOGY RECD BY: Yajaira Antoine ENTERED: 02/06/23 07:58 SP TYPE: ASPIRATION OTHR DR: Dr. Angel Guzman MD Tissues: A - Thyroid gland, NOS B - Thyroid gland, NOS Procedures: Special Stain Group II Cytology Other Comments: @ Specimen number changed from [id number] to [id number] @ on 02/06/23 at 0806 by ERIBERTO. HEADER OPERATION: Left thyroid fine needle aspiration PRE-OP DIAGNOSIS: Multiple thyroid nodules TISSUE SUBMITTED: A - Left thyroid inferior nodule x6 slides, B - Left thyroid superior nodule x6 slides DIAGNOSIS CYTOLOGY A. 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 See comment. B. 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 See comment. AM:jean 02/06/2023 COMMENT The [place] System for thyroid diagnostic categorization was used in the evaluation of this case. Case has been reviewed in consultation with Dr. Hatch who concurs with the above diagnosis. IDC:SJ CYTOLOGY STUDY Slides are reviewed. CYTOLOGY GROSS A - Received are six smears labeled with the patient's name and designated per the requisition as left thyroid inferior nodule. Submitted for staining. B - Received are six smears labeled with the patient's name and designated per the requisition as left thyroid superior nodule. Submitted for staining. / jean 02/03/2023 TC:? CPT: 56114 x2
== END | disposition home or self-care (01) ==
LOC: LABSPEC 16:37
PROVIDERS: PCP Family Medicine; Referring Provider Surgery; Visit Provider Surgery
DX: E04.1 Nontoxic single thyroid nodule (principal)
CPT/HCPCS: 88161; 88313

== ENCOUNTER → 2023-02-09 | Outpatient (CLI) | payer MEDICARE, OTHER, SELFPAY ==
[2023-02-09 18:10] LABS: Absolute Lymphocyte Count 2.16 X10^3/uL (0.83-4.51); Absolute Neutrophil Count 3.7 X10^3/uL (2.0-7.7); Basophil# 0.05 X10^3/uL; Basophil% 0.8 % (0-1); Eosinophil# 0.27 X10^3/uL; Eosinophils% 4.1 % (0-5); Hemoglobin 14.2 g/dL (13.0-16.5); Lymphocyte # 2.16 X10^3/ul (0.83-4.51); Lymphocyte % 32.5 % (19-41); Mean Corp Hgb Conc 31.6 g/dL (32-36); Mean Corpuscular Hgb 29.8 pg (27.0-32.0); Mean Corpuscular Volume 94.3 fL (80-94); Mean Platelet Vol. 10.2 fl (6.2-12.0); Monocyte# 0.46 X10^3/uL; Monocyte% 6.9 % (0-10); NRBC Flagged by Analyzer 0 % (0-5); Neutrophil % 55.5 % (47-70); Platelet Count 223 K/mm3 (150-450); RBC Distribution Width CV 12.4 % (11.6-14.6); RBC Distribution Width SD 42.9 fl (35.1-43.9); Red Blood Count 4.77 M/mm3 (4.6-6.2); White Blood Count 6.7 K/mm3 (4.4-11.0)
[2023-02-09 18:55] LABS: ALB/GLOB Ratio 1.1 RATIO (0.9-2.4); AST(SGOT) 21 U/L (15-37); Alanine Aminotransfer ALT/SGPT 33 U/L (16-61); Albumin, Serum 3.5 g/dL (3.2-5.0); Alkaline Phosphatase 105 U/L (45-117); Anion Gap 3 (5-15); BUN 18 mg/dL (7-18); BUN/Creat Ratio 16.7 RATIO (10-20); Calcium,Total 8.9 mg/dL (8.5-10.1); Chloride 105 mmol/L (98-107); Cholesterol 115 mg/dL (200); Creatinine, Serum 1.08 mg/dL (0.70-1.30); EST Glomerular Filtration Rate 72 mL/min (>60); Est Glom Filt Rate - Afr Amer 87 mL/min (>60); Globulin 3.3 g/dL (2.2-4.2); Glucose 96 mg/dL (74-106); High Density Lipoprotein 60 mg/dL; Magnesium 2.3 mg/dL (1.6-2.6); Potassium 4.3 mmol/L (3.5-5.1); Protein, Total 6.8 g/dL (6.4-8.2); Sodium Level 136 mmol/L (136-145); Thyroid Stim Hormone (TSH) 0.83 uIU/mL (0.358-3.74); Triglycerides 107 mg/dL; Very Low Density Lipoprotein 21 mg/dL (5-40)
== END | disposition home or self-care (01) ==
LOC: MFPLAB 15:08
PROVIDERS: PCP Family Medicine; Visit Provider Family Medicine
DX: I25.10 Atherosclerotic heart disease of native coronary artery without angina pectoris (principal); I48.91 Unspecified atrial fibrillation
CPT/HCPCS: 36415; 80053; 80061; 83735; 84443; 85025

== ENCOUNTER → 2023-02-15 | Outpatient (CLI) | payer MEDICARE, OTHER, SELFPAY ==
--- NOTE | 2023-02-15 15:16 | US_ITS ---
EXAM: US SCROTUM CLINICAL INDICATION: HYDROCELE TECHNIQUE: Realtime ultrasound of the testicles was performed with grayscale and Color Doppler analysis. COMPARISON: No relevant prior studies available. FINDINGS: RIGHT TESTICLE: Unremarkable. 4.8 cm x 2.9 cm x 2.9 cm. Normal in size and echotexture. No focal lesion. Normal blood flow is present. LEFT TESTICLE: Unremarkable. 4.3 cm x 3.3 cm x 2.3 cm. Normal in size and echotexture. No focal lesion. Normal blood flow is present. EPIDIDYMIDES: Right epididymal head 1.3 cm x 1.2 cm x 1.5 cm. Large thin-walled cyst at the junction of the right epididymal head and body, 2.4 cm x 2 cm x 2.5 cm. Left epididymal head 1.4 cm x 0.8 cm x 1.2 cm with tiny 3 mm cyst or spermatocele. Normal color Doppler flow pattern in the epididymis. SCROTUM: Unremarkable. Mild right and slight left hydroceles. No complex fluid collections. US/Testicular with Arterial Flow IMPRESSION: Mild hydroceles. 2.5 cm right cyst or spermatocele of epididymis. 3 mm tiny left epididymal head cyst. No evidence of testicular mass or torsion. Electronically Signed: Goldie Mejia MD at 8:42 EDT ,
== END | disposition home or self-care (01) ==
LOC: US 15:14
PROVIDERS: PCP Family Medicine; Referring Provider Family Medicine; Visit Provider Family Medicine
DX: N43.3 Hydrocele, unspecified (principal); N50.3 Cyst of epididymis
CPT/HCPCS: 76870; 93976

== ENCOUNTER → 2023-06-13 | Outpatient (CLI) | payer MEDICARE, OTHER, SELFPAY ==
[2023-06-13 17:40] LABS: Absolute Lymphocyte Count 1.02 X10^3/uL (0.83-4.51); Absolute Neutrophil Count 9.4 X10^3/uL (2.0-7.7); Basophil# 0.05 X10^3/uL; Basophil% 0.4 % (0-1); Eosinophils% 0.9 % (0-5); Hematocrit 47.4 % (40-54); Hemoglobin 15.3 g/dL (13.0-16.5); Lymphocyte # 1.02 X10^3/ul (0.83-4.51); Lymphocyte % 9.1 % (19-41); Mean Corp Hgb Conc 32.3 g/dL (32-36); Mean Corpuscular Hgb 29.9 pg (27.0-32.0); Mean Corpuscular Volume 92.6 fL (80-94); Mean Platelet Vol. 9.3 fl (6.2-12.0); Monocyte# 0.71 X10^3/uL; Monocyte% 6.3 % (0-10); NRBC Flagged by Analyzer 0 % (0-5); Neutrophil # 9.36 X10^3/uL (2.7-7.7); Neutrophil % 83.1 % (47-70); Platelet Count 209 K/mm3 (150-450); RBC Distribution Width CV 12.8 % (11.6-14.6); RBC Distribution Width SD 43.8 fl (35.1-43.9); Red Blood Count 5.12 M/mm3 (4.6-6.2); White Blood Count 11.3 K/mm3 (4.4-11.0)
[2023-06-13 18:31] LABS: AST(SGOT) 28 U/L (15-37); Alanine Aminotransfer ALT/SGPT 44 U/L (16-61); Albumin, Serum 3.9 g/dL (3.2-5.0); Alkaline Phosphatase 112 U/L (45-117); Anion Gap 8 (5-15); BUN 22 mg/dL (7-18); BUN/Creat Ratio 20.4 RATIO (10-20); Chloride 105 mmol/L (98-107); Cholesterol 122 mg/dL (200); Creatinine, Serum 1.08 mg/dL (0.70-1.30); EST Glomerular Filtration Rate 72 mL/min (>60); Est Glom Filt Rate - Afr Amer 87 mL/min (>60); Globulin 3.8 g/dL (2.2-4.2); Glucose 96 mg/dL (74-106); High Density Lipoprotein 62 mg/dL; Magnesium 2.3 mg/dL (1.6-2.6); Potassium 4.4 mmol/L (3.5-5.1); Protein, Total 7.7 g/dL (6.4-8.2); Sodium Level 138 mmol/L (136-145); Thyroid Stim Hormone (TSH) 0.63 uIU/mL (0.358-3.74); Triglycerides 89 mg/dL; Very Low Density Lipoprotein 18 mg/dL (5-40)
== END | disposition home or self-care (01) ==
LOC: MTLAB 14:31
PROVIDERS: PCP Family Medicine; Referring Provider Family Medicine; Visit Provider Family Medicine
DX: I48.91 Unspecified atrial fibrillation (principal); E78.5 Hyperlipidemia, unspecified; Z12.5 Encounter for screening for malignant neoplasm of prostate
CPT/HCPCS: 36415; 80053; 80061; 83735; 84153; 84443; 85025; G0103

== ENCOUNTER → 2023-07-31 | Outpatient (CLI) | payer MEDICARE, OTHER, SELFPAY ==
--- OUTSIDE RECORDS SUMMARY | 2023-07-31 06:54 | XMS RPT_ITS | CCD ---
Author Name Unknown Address [address] [facility] [address] [place] [address] Organization [facility] Care Team Providers Care Relay Operator Name Role Phone Sandra Ugarte Unavailable Serena Denise Unavailable [phone] Sandra Ugarte Unavailable Medications Completed/Discontinued Medications Medication Drug Class(es) Dates Sig (Normalized) Sig (Original) aspirin 81 mg oral strip (3 sources) Nonsteroidal Anti-inflammatory Drug Start: 08-09-2016 ADULT ASPIRIN EC LOW STRENGTH 81 MG [facility] ASPIRIN [id number] Jesse Greer Problems Active Problems Problem Classification Problem Date Documented Date Episodic/Chronic Essential hypertension (3 sources) Hypertensive disorder; Translations: [Essential (primary) hypertension] Onset: 08-09-2016 08-09-2016 Chronic Osteoarthritis (3 sources) Osteoarthritis of acromioclavicular joint; Translations: [Primary osteoarthritis, right shoulder] Onset: 08-09-2016 08-09-2016 Chronic Unclassified (1 source) Postoperative physical examination; Translations: [Encounter for other specified surgical aftercare] Onset: 09-08-2016 09-08-2016 Past or Other Problems Problem Classification Problem Date Documented Da te Episodic/Chronic Other aftercare (4 sources) Encounter for other specified surgical aftercare; Translations: [Strain of other muscles, fascia and tendons at shoulder and upper arm level, right arm, subsequent encounter] Onset: 08-16-2016 09-08-2016 Episodic Other connective tissue disease (7 sources) Biceps tendinitis; Translations: [Rotator cuff syndrome] Onset: 08-09-2016 08-16-2016 Episodic Other connective tissue disease (1 source) Rotator cuff syndrome; Translations: [Unspecified rotator cuff tear or rupture of right shoulder, not specified as traumatic] Onset: 08-09-2016 08-09-2016 Episodic Other connective tissue disease (1 source) Bursitis of shoulder; Translations: [Bursitis of right shoulder] Onset: 08-09-2016 08-09-2016 Episodic Other non-traumatic joint disorders (5 sources) Impingement syndrome of shoulder region; Translations: [Pain in right shoulder] Onset: 08-09-2016 08-09-2016 Episodic Other non-traumatic joint disorders (1 source) Pain in right shoulder; Translations: [Pain in right shoulder] Onset: 08-09-2016 08-09-2016 Episodic Sprains and strains (1 source) Strain of other muscles, fascia and tendons at shoulder and upper arm level, right arm, subsequent encounter; Translations: [Strain of other muscles, fascia and tendons at shoulder and upper arm level, right arm, subsequent encounter] Onset: 08-16-2016 08-16-2016 Episodic Results Test Name Value Interpretation Reference Range Facil ity Vital Signs Date Time Vital Sign Value Performing Clinician Madhu donohue 08-09-2016 09:53-0500 BMI (Body Mass Index) 24.75 kg/m2 Serena Denise [facility] Work Phone: 08-09-2016 09:53-0500 Body weight 89.81 kg Sandrayoselin Ugarte [facility] Work Phone: 08-09-2016 09:53-0500 Height 190.5 cm Serena Denise [facility] Work Phone: 08-09-2016 09:53-0500 Weight 89.81 kg Serena Denise [facility] Work Phone: Procedures Date Procedure Procedure Detail Performing Clinician Start: 09-05-2020 Antibody screen Plan of Treatment Date Care Activity Detail Author Start: 12-06-2016 End: 12-06-2016 Appointment Appointment [facility] Work Phone: Start: 08-09-2016 End: 08-09-2016 Mri joint upr extrem w/o dye MRI Joint Upper Extremity [facility] Work Phone: Start: 08-09-2016 End: 08-09-2016 X-ray exam of shoulder X-Ray, Shoulder [facility] Work Phone: Patient Education [facility] Work Phone: Summary Purpose Family History No Family History Records FoundNo Family History Records Found Advance Directives No Advanced Directives Records FoundNo Advanced Directives Records Found Additional Source Comments (unrecognized sect ion and content) No Status Records FoundNo Status Records Found INFORMATION SOURCE (unrecogn ized section and content) DATE CREATED AUTHOR AUTHOR'S ORGANIZ ATION 08/15/2021 [facility] FOR RECORDS PERTAINING TO PATIENTS WHO ARE OR HAVE BEEN ENROLLED IN A CHEMICAL DEPENDENCY/SUBSTANCEABUSE PROGRAM, SOME INFORMATION MAY BE OMITTED. This clinical summary was aggregated from multiple sources. Caution should be exercised in using it in the provision of clinical care. This summary normalizes information from multiple sources, and as a consequence, information in this document may materially change the coding, format and clinical context of patient data. In addition, data may be omitted in some cases. CLINICAL DECISIONS SHOULD BE BASED ON THE PRIMARY CLINICAL RECORDS. [employer] provides no warranty or guarantee of the accuracy or completeness of information in this document.
--- NOTE | 2023-07-31 10:43 | STRESSREP ---
Stress Test Report Exercise myocardial perfusion stress test. 73-year-old man with a history of chest pain Stress protocol: Resting EKG demonstrates normal sinus rhythm with a rate of 56 bpm resting blood pressure is 138/84 mmHg. The patient exercised according to the regular Richard protocol for a total duration of 11 minutes and 30 seconds attaining a maximum heart rate of 169 bpm which was 113% of maximum predicted heart rate; the maximum workload was 13.4 metabolic equivalents. At rest there were no ST or T wave changes noted to suggest ischemia and at peak exercise upsloping ST changes only were noted which did not meet the criteria for ischemia. No clinical angina was noted the test was terminated due to the target heart rate being achieved/fatigue. The peak blood pressure was 178/88 mmHg. Rate-pressure product was 23,300. Myocardial perfusion protocol. 11.3 mCi of technetium 99m sestamibi was injected at rest. The patient exercised according to regular Richard protocol for total duration of 11 minutes and 30 seconds and at peak exercise 33.1 mCi of technetium 99m sestamibi was injected stress images were obtained stress and rest images were reconstructed in comparing the short axis vertical long and horizontal long axis. Gated images were also obtained. Perfusion SPECT analysis: Review of the stress images demonstrate normal uptake of tracer noted in all areas of the myocardium. The resting images similarly demonstrate normal uptake of tracer noted in all areas of the myocardium. No areas of reversibility are noted to suggest ischemia no previous infarct was noted. Gated SPECT analysis: The gated ejection fraction is 70%. Conclusion: Normal exercise myocardial perfusion stress test at a high workload Preserved ejection fraction.
== END | disposition home or self-care (01) ==
LOC: CVS 06:52
PROVIDERS: PCP Family Medicine; Referring Provider Physician Assistant Medical; Visit Provider Physician Assistant Medical
DX: Z95.5 Presence of coronary angioplasty implant and graft (principal)
CPT/HCPCS: 78452; 93017; A9500; A4216

== ENCOUNTER → 2023-12-13 | Outpatient (CLI) | payer MEDICARE, OTHER, SELFPAY ==
[2023-12-13 12:36] LABS: Absolute Neutrophil Count 3.7 X10^3/uL (2.0-7.7); Basophil# 0.04 X10^3/uL; Basophil% 0.6 % (0-1); Eosinophil# 0.24 X10^3/uL; Eosinophils% 3.9 % (0-5); Hematocrit 43.9 % (40-54); Hemoglobin 14.3 g/dL (13.0-16.5); Lymphocyte % 29.1 % (19-41); Mean Corp Hgb Conc 32.6 g/dL (32-36); Mean Corpuscular Hgb 30.2 pg (27.0-32.0); Mean Corpuscular Volume 92.6 fL (80-94); Mean Platelet Vol. 9.9 fl (6.2-12.0); Monocyte% 6.5 % (0-10); NRBC Flagged by Analyzer 0 % (0-5); Neutrophil # 3.69 X10^3/uL (2.7-7.7); Neutrophil % 59.6 % (47-70); Platelet Count 231 K/mm3 (150-450); RBC Distribution Width CV 12.8 % (11.6-14.6); RBC Distribution Width SD 43.4 fl (35.1-43.9); Red Blood Count 4.74 M/mm3 (4.6-6.2); White Blood Count 6.2 K/mm3 (4.4-11.0)
[2023-12-13 12:56] LABS: AST(SGOT) 26 U/L (15-37); Alanine Aminotransfer ALT/SGPT 37 U/L (16-61); Albumin, Serum 3.5 g/dL (3.2-5.0); Alkaline Phosphatase 102 U/L (45-117); Anion Gap 5 (5-15); BUN 20 mg/dL (7-18); BUN/Creat Ratio 22.4 RATIO (10-20); Calcium,Total 9.6 mg/dL (8.5-10.1); Chloride 110 mmol/L (98-107); Cholesterol 121 mg/dL (200); Creatinine, Serum 0.89 mg/dL (0.70-1.30); EST Glomerular Filtration Rate 89 mL/min (>60); Est Glom Filt Rate - Afr Amer 108 mL/min (>60); Globulin 3.4 g/dL (2.2-4.2); Glucose 67 mg/dL (74-106); High Density Lipoprotein 59 mg/dL; Magnesium 2.2 mg/dL (1.6-2.6); Potassium 4.7 mmol/L (3.5-5.1); Protein, Total 6.9 g/dL (6.4-8.2); Sodium Level 139 mmol/L (136-145); Triglycerides 78 mg/dL; Very Low Density Lipoprotein 16 mg/dL (5-40)
== END | disposition home or self-care (01) ==
LOC: MFPLAB 10:07
PROVIDERS: PCP Family Medicine; Visit Provider Family Medicine
DX: E78.5 Hyperlipidemia, unspecified (principal); I48.91 Unspecified atrial fibrillation
CPT/HCPCS: 36415; 80053; 80061; 83735; 85025

== ENCOUNTER → 2024-04-26 | Outpatient (CLI) | payer MEDICARE, OTHER, SELFPAY ==
--- NOTE | 2024-04-26 11:25 | RAD_ITS ---
EXAM: XR ABDOMEN, 4 VIEWS CLINICAL INDICATION: ABDOMINAL PAIN TECHNIQUE: Frontal view of the abdomen/pelvis, 2 supine and 2 upright views. COMPARISON: No relevant prior studies available. FINDINGS: LOWER THORAX: See below. INTRAPERITONEAL SPACE: No free air. GASTROINTESTINAL TRACT: Mild stool in the colon and rectum. Minimal small bowel gas. Non-obstructive. No bowel or stomach distention. ORGANS: Unremarkable as visualized. No organomegaly. No abnormal calcifications. BONES/JOINTS: Multilevel thoracolumbar disc space narrowing, vacuum disc, spondylosis. The lung bases are overexposed, the heart margin is not well seen. No definite infiltrate or effusion. SOFT TISSUES: No acute pathology. [employer] Decub and/or Erect IMPRESSION: No specific acute abnormality. Electronically Signed: Goldie Mejia MD at 19:54 EDT ,
[2024-04-26 15:13] LABS: Absolute Lymphocyte Count 1.46 X10^3/uL (0.83-4.51); Absolute Neutrophil Count 8.8 X10^3/uL (2.0-7.7); Basophil# 0.03 X10^3/uL; Basophil% 0.3 % (0-1); Eosinophil# 0.05 X10^3/uL; Eosinophils% 0.4 % (0-5); Hematocrit 45.4 % (40-54); Hemoglobin 14.5 g/dL (13.0-16.5); Lymphocyte # 1.46 X10^3/ul (0.83-4.51); Lymphocyte % 13.1 % (19-41); Mean Corp Hgb Conc 31.9 g/dL (32-36); Mean Corpuscular Hgb 29.4 pg (27.0-32.0); Mean Corpuscular Volume 91.9 fL (80-94); Monocyte# 0.73 X10^3/uL; Monocyte% 6.5 % (0-10); NRBC Flagged by Analyzer 0 % (0-5); Neutrophil # 8.81 X10^3/uL (2.7-7.7); Neutrophil % 79.1 % (47-70); Platelet Count 243 K/mm3 (150-450); RBC Distribution Width CV 12.8 % (11.6-14.6); RBC Distribution Width SD 43.3 fl (35.1-43.9); Red Blood Count 4.94 M/mm3 (4.6-6.2); White Blood Count 11.2 K/mm3 (4.4-11.0)
[2024-04-26 15:37] LABS: ALB/GLOB Ratio 0.7 RATIO (0.9-2.4); AST(SGOT) 28 U/L (15-37); Alanine Aminotransfer ALT/SGPT 48 U/L (16-61); Albumin, Serum 3.3 g/dL (3.2-5.0); Alkaline Phosphatase 105 U/L (45-117); Anion Gap 6 (5-15); BUN 19 mg/dL (7-18); BUN/Creat Ratio 15.4 RATIO (10-20); Calcium,Total 9.8 mg/dL (8.5-10.1); Chloride 104 mmol/L (98-107); Creatinine, Serum 1.23 mg/dL (0.70-1.30); EST Glomerular Filtration Rate 62 mL/min (>60); Est Glom Filt Rate - Afr Amer 74 mL/min (>60); Globulin 4.5 g/dL (2.2-4.2); Glucose 76 mg/dL (74-106); Lipase 23 U/L (13-75); Potassium 3.9 mmol/L (3.5-5.1); Protein, Total 7.8 g/dL (6.4-8.2); Sodium Level 136 mmol/L (136-145)
== END | disposition home or self-care (01) ==
LOC: MTLAB 11:23
PROVIDERS: PCP Family Medicine; Referring Provider Family Medicine; Visit Provider Family Medicine
DX: R10.9 Unspecified abdominal pain (principal)
CPT/HCPCS: 36415; 74019; 80053; 83690; 85025

== ENCOUNTER → 2024-07-03 | Outpatient (CLI) | payer MEDICARE, OTHER, SELFPAY ==
[2024-07-03 18:36] LABS: PSA,Total - Annual Screen 2.44 ng/mL (0.00-4.00)
== END | disposition home or self-care (01) ==
LOC: MFPLAB 16:39
PROVIDERS: PCP Family Medicine; Referring Provider Family Medicine; Visit Provider Family Medicine
DX: Z12.5 Encounter for screening for malignant neoplasm of prostate (principal)
CPT/HCPCS: 36415; 84153; G0103

== ENCOUNTER → 2025-01-01 | Outpatient (CLI) | payer MEDICARE, OTHER, SELFPAY ==
[2025-01-01 18:00] LABS: Absolute Lymphocyte Count 1.62 X10^3/uL (0.83-4.51); Absolute Neutrophil Count 4.3 X10^3/uL (2.0-7.7); Basophil# 0.04 X10^3/uL; Basophil% 0.6 % (0-1); Eosinophil# 0.25 X10^3/uL; Eosinophils% 3.8 % (0-5); Hemoglobin 13.9 g/dL (13.0-16.5); Lymphocyte # 1.62 X10^3/ul (0.83-4.51); Lymphocyte % 24.4 % (19-41); Mean Corp Hgb Conc 33.1 g/dL (32-36); Mean Corpuscular Hgb 30.3 pg (27.0-32.0); Mean Corpuscular Volume 91.7 fL (80-94); Mean Platelet Vol. 10.1 fl (6.2-12.0); NRBC Flagged by Analyzer 0 % (0-5); Neutrophil # 4.32 X10^3/uL (2.7-7.7); Platelet Count 230 K/mm3 (150-450); RBC Distribution Width CV 12.8 % (11.6-14.6); RBC Distribution Width SD 42.5 fl (35.1-43.9); Red Blood Count 4.58 M/mm3 (4.6-6.2); White Blood Count 6.6 K/mm3 (4.4-11.0)
[2025-01-01 18:31] LABS: ALB/GLOB Ratio 1.4 RATIO (0.9-2.4); AST(SGOT) 28 U/L (<=37); Alanine Aminotransfer ALT/SGPT 24 U/L (<=46); Albumin, Serum 3.9 g/dL (3.4-4.8); Alkaline Phosphatase 104 U/L (40-129); Anion Gap 9 (5-15); BUN 20 mg/dL (4-19); BUN/Creat Ratio 18.8 RATIO (10-20); Calcium,Total 9.5 mg/dL (7.6-11.0); Carbon Dioxide 24.7 mmol/L (21.0-32.0); Chloride 106 mmol/L (98-108); Cholesterol 121 mg/dL (<=200); Creatinine, Serum 1.06 mg/dL (0.70-1.20); EST Glomerular Filtration Rate 75 (>60); Globulin 2.7 g/dL (2.2-4.2); Glucose 99 mg/dL (70-99); High Density Lipoprotein 47 mg/dL; Low Density Lipoprotein Calc. 40 mg/dL; Magnesium 2.1 mg/dL (1.5-2.2); Potassium 4.6 mmol/L (3.3-5.1); Protein, Total 6.6 g/dL (5.9-8.4); Sodium Level 139 mmol/L (133-145); Total Bilirubin 0.44 mg/dL (0.00-1.30); Triglycerides 170 mg/dL; Very Low Density Lipoprotein 34 mg/dL (5-40); cholesterol:hdl ratio screen 2.57
--- OUTSIDE RECORDS SUMMARY | 2025-01-01 22:13 | XMS RPT_ITS | CCD ---
Author Organization [facility] Care Team Providers Care Tool Liaison Name Role Phone Shanel Sandra Coelho Unavailable Serena Denise Unavailable Sandra Ugarte Unavailable Dr. Angel Guzman Primary Care Provider Dr. Angel Guzman Referring Provider Roof ELECTRICIAN SHOP, ELECTRICIAN SHOP-Jose M George Attending Provider Dr. Angel Guzman Primary Care Provider Dr. Angel Guzman Referring Provider Roof ELECTRICIAN SHOP, ELECTRICIAN SHOP-Jose M George Attending Provider Roof ELECTRICIAN SHOP, ELECTRICIAN SHOP-Jose M George Other Provider Dr. Lan Harris Attending Provider Dr. Angel uGzman Primary Care Provider Dr. Angel Guzman Referring Provider Patricia Watt Attending Provider Unavailable Wilton [place], [place] Patricia Davisdon Attending Provider Dr. Raul Yan Attending Provider Dr. Raul Yan Referring Provider Dr. Angel Guzman Primary Care Provider Dr. Angel Guzman Referring Provider Wilton [place], [place] Patricia Davidson Attending Provider Dr. Angel Guzman Primary Care Provider Dr. Angel Guzman Referring Provider MENDOZA Kemp Attending Provider MENDOZA Kemp Referring Provider MENDOZA Kemp Other Provider Dr. Hector Tomlin Attending Provider Thomas SUGGS, Dr. Angel Flores Primary Care Provider [phone] Thomas SUGGS, Dr. Angel Flores Referring Provider Dr. Santy Mckeon MD Attending Provider Angel Guzman Primary Care Unavailable Patricia Kemp Attending Unavail able Angel Guzman Referring Unavailable Angel Guzman Primary Care Unavailable Angel Guzman Attending Unavailable Angel Guzman Referring Unavailable Angel Guzman Primary Care Unavailable Angel Guzman Attending Unavailable Angel Guzamn Referring Unavailable Angel Guzman Primary Care Unavailable Patricia Kemp Attending Unavail able Angel Guzman Referring Unavailable Angel Guzman Primary Care Unavailable Santy Mckeon Attending Unavailable Angel Guzman Referring Unavailable Allergies Allergy Classification Reported Allergen(s) Allergy Type Date of Onset Reaction(s) Facility (11 sources) Chlorhexidine Drug Allergy 03-13-2022 rash [facility] (1 source) Chlorhexidine Drug Allergy 12-26-2024 [facility] Repository Medications Current Medications Medication Drug Class(es) Dates Sig (Normalized) Sig (Original) apixaban 5 mg oral tablet (20 sources) Factor Xa Inhibitor Start: 12-09-2022 End: 10-07-2024 take 1 tablet by mouth twice daily Apixaban (Eliquis) 5 mg tablet Active 5 mg PO TWICE A DAY October 07, 2024 3:23pm atorvastatin 20 mg oral tablet (20 sources) HMG-CoA Reductase Inhibitor Start: 12-26-2024 take 2 tablets by mouth once daily Atorvastatin 20 mg tablet Active 40 mg PO daily December 26, 2024 1:52pm 40 mg orally daily; Start: 04-08-2024 End: 12-26-2024 take 1 tablet by mouth at bedtime Atorvastatin 20 mg tablet Discontinued 0 .ROUTE .COMPLEX April 08, 2024 10:51am December 26, 2024 1:52pm TAKE ONE TABLET BY MOUTH AT BEDTIME Start: 07-04-2023 take 1 tablet by karissa th at bedtime Atorvastatin Active 0 .ROUTE .COMPLEX July 04, 2023 3:08pm TAKE ONE TABLET BY MOUTH AT BEDTIME Start: 06-16-2020 End: 04-08-2024 take 1 tablet by mouth at bedtime Atorvastatin 40 mg tablet Discontinued 0 .ROUTE .COMPLEX July 04, 2023 4:08pm April 08, 2024 10:52am TAKE ONE TABLET BY MOUTH AT BEDTIME escitalopram 20 mg oral tablet (20 sources) Serotonin Reuptake Inhibitor Start: 06-26-2023 take 1 tablet by mouth once daily Escitalopram Oxalate 20 mg tablet Active 20 mg PO DAILY June 26, 2023 1:00am Start: 05-05-2020 End: 03-16-2023 take 1 tablet by mouth once daily Escitalopram Oxalate 20 mg tablet Discontinued 20 mg PO DAILY May 05, 2020 12:00am March 16, 2023 1:20pm Start: 06-26-2019 End: 05-05-2020 take 1 tablet by mouth once daily Escitalopram Oxalate 10 mg tablet Discontinued 10 mg PO DAILY June 26, 2019 1:00am May 05, 2020 5:23pm Completed/Discontinued Medications Medication Drug Class(es) Dates Sig (Normalized) Sig (Original) acetaminophen 325 mg / oxyCODONE hydrochloride 5 mg oral tablet (11 sources) Opioid Agonist Start: 08-24-2016 End: 08-12-2017 Oxycodone-Acetamino phen 1 TABLET tablet Discontinued 1 - 2 {tbl} PO EVERY 6 HOURS NEEDED as needed for Pain 60 August 24, 2016 1:00am August 12, 2017 9:33am Start: 08-24-2016 End: 08-12-2017 take 1 tablet by mouth every six hours as needed Oxycodone-Acetaminophen Discontinued 1 - 2 TABLET PO EVERY 6 HOURS NEEDED 60 August 24, 2016 12:00am August 12, 2017 8:33am aspirin 81 mg delayed release oral tablet (20 sources) Nonsteroidal Anti-inflammatory Drug Start: 05-05-2020 End: 10-05-2020 take 1 tablet by mouth once daily Aspirin 81 MG tablet Discontinued 81 mg PO DAILY@0800 June 17, 2020 1:00am October 05, 2020 1:44pm Start: 08-09-2016 ADULT ASPIRIN EC LOW STRENGTH 81 MG [facility] ASPIRIN [id number] Jesse Greer Start: 08-09-2016 ADULT ASPIRIN EC LOW STRENGTH 81 MG [facility] ASPIRIN [id number] Jesse Greer Start: 01-02-2014 End: 08-12-2017 take 1 tablet by mouth once daily Aspirin 81 MG tablet,chewable Discontinued 81 mg PO DAILY@0800 January 02, 2014 12:00am August 12, 2017 9:32am Chondroitin Sulfates / Glucosamine (11 sources) Start: 08-22-2016 End: 08-12-2017 take 1 capsule by mouth once daily Glucosamine-Chondroitin Cap Discontinued 1500 mg PO DAILY August 22, 2016 1:00am August 12, 2017 9:32am Start: 08-22-2016 End: 08-12-2017 take 1 capsule by mouth once daily Glucosamine-Chondroitin Cap Discontinued 1500 MG PO DAILY August 22, 2016 12:00am August 12, 2017 8:32am Start: 08-22-2016 End: 08-12-2017 take 1 capsule by mouth once daily Glucosamine-Chondroitin Cap Discontinued 1500 MG PO DAILY August 22, 2016 1:00am August 12, 2017 9:32am clopidogrel 75 mg oral tablet (20 sources) [id number] Platelet Inhibitor Start: 06-08-2020 End: 12-09-2022 take 1 tablet by mouth once daily Clopidogrel 75 mg tablet Discontinued 75 mg PO DAILY 90 September 19, 2022 12:41pm December 09, 2022 9:46am lisinopril 5 mg oral tablet (14 sources) Angiotensin Converting Enzyme Inhibitor Start: 08-09-2016 LISINOPRIL 5 MG TABS LISINOPRIL [id number] Jesse Greer Start: 01-02-2014 End: 05-05-2020 take 5 mg by mouth once daily Lisinopril 10 MG tablet Discontinued 5 mg PO DAILY January 02, 2014 12:00am May 05, 2020 5:24pm Start: 01-02-2014 End: 05-05-2020 take 5 mg by mouth once daily Lisinopril Discontinued 5 MG PO DAILY January 01, 2014 11:00pm May 05, 2020 4:24pm metoprolol tartrate 25 mg oral tablet (20 sources) beta-Adrenergic Katherin Start: 04-08-2024 End: 04-08-2024 Metoprolol Tartrate 25 mg tablet Discontinued 12.5 mg PO TWICE A DAY April 08, 2024 11:02am April 08, 2024 11:03am Start: 04-08-2024 take 1 tablet by karissa th once daily Metoprolol Succinate (Toprol Xl) 25 mg tablet extended release 24 hr Active 25 mg PO daily April 08, 2024 12:00am Start: 12-09-2022 End: 04-08-2024 take 1 tablet by mouth twice daily Metoprolol Tartrate 25 mg tablet Discontinued 25 mg PO TWICE A DAY 60 December 18, 2023 11:20am April 08, 2024 11:02am Start: 10-05-2020 End: 12-09-2022 Metoprolol Tartrate 25 mg ta blet Discontinued 12.5 mg PO TWICE A DAY November 14, 2022 9:08am December 09, 2022 9:47am Start: 10-05-2020 End: 12-09-2022 take 12.5 mg by mouth twice daily Metoprolol Tartrate Discontinued 12.5 MG PO TWICE A DAY November 14, 2022 8:08am December 09, 2022 8:47am Start: 05-05-2020 End: 10-05-2020 take 1 tablet by mouth twice daily Metoprolol Tartrate 25 MG tablet Discontinued 25 mg PO TWICE A DAY June 17, 2020 1:00am October 05, 2020 1:45pm Multivitamin preparation (10 sources) Start: 10-12-2020 End: 04-15-2021 take 1 tablet by mouth once daily Multivitamin Discontinued 1 TABLET PO DAILY October 11, 2020 11:00pm April 15, 2021 10:11am Start: 10-12-2020 End: 04-15-2021 take 1 tablet by mouth once daily Multivitamin Discontinued 1 TABLET PO DAILY October 12, 2020 12:00am April 15, 2021 11:11am Multivitamin tablet (1 source) Start: 10-12-2020 End: 04-15-2021 Multivitamin tablet Disconti nued 1 {tbl} PO DAILY October 12, 2020 12:00am April 15, 2021 11:11am Problems Active Problems Problem Classification Problem Date Documented Date Episodic/Chronic Cardiac dysrhythmias (20 sources) Atrial fibrillation; Translations: [Unspecified atrial fibrillation] Chronic Coronary atherosclerosis and other heart disease (13 sources) Coronary atherosclerosis; Translations: [Atherosclerotic heart disease of [place] coronary artery without angina pectoris] Chronic Disorders of lipid metabolism (1 source) Hyperlipidemia; Translations: [Hyperlipidemia, unspecified] 04-08-2024 Chronic Essential hypertension (20 sources) Hypertensive disorder; Translations: [Essential hypertension] Onset: 7 08-09-2016 Chronic Nonspecific chest pain (11 sources) Chest pain; Translations: [Chest pain, unspecified] 03-21-2022 Episodic Osteoarthritis (3 sources) Osteoarthritis of acromioclavicular joint; Translations: [Primary osteoarthritis, right shoulder] Onset: 7 08-09-2016 Chronic Other circulatory disease (11 sources) H/O: heart disorder; Translations: [Personal history of other diseases of the circulatory system] 03-21-2022 Episodic Other lower respiratory disease (11 sources) Dyspnea; Translations: [Shortness of breath] 01-13-2021 Episodic Other lower respiratory disease (1 source) Shortness of breath; Translations: [Shortness of breath] Episodic Thyroid disorders (16 sources) Multinodular goiter; Translations: [Nontoxic multinodular goiter] 10-12-2020 Chronic Unclassified (1 source) Postoperative physical examination; Translations: [Encounter for other specified surgical aftercare] Onset: 7 09-08-2016 Past or Other Problems Problem Classification Problem Date Documented Da te Episodic/Chronic Abdominal pain (1 source) Unspecified abdominal pain; Translations: [Unspecified abdominal pain] Onset: 05-21-2024 Episodic Coronary atherosclerosis and other heart disease (20 sources) Presence of aortocoronary bypass graft; Translations: [Aortocoronary bypass status] Onset: 06-16-2020 Episodic Other aftercare (4 sources) Encounter for other [...] right shoulder] Onset: 08-09-2016 08-09-2016 Episodic Other screening for suspected conditions (not mental disorders or infectious disease) (12 sources) Cardiovascular stress test abnormal; Translations: [Abnormal result of other cardiovascular function study] Onset: 07-30-2024 01-13-2021 Episodic Sprains and strains (1 source) Strain of other muscles, fascia and tendons at shoulder and upper arm level, right arm, subsequent encounter; Translations: [Strain of other muscles, fascia and tendons at shoulder and upper arm level, right arm, subsequent encounter] Onset: 08-16-2016 08-16-2016 Episodic Results Test Name Value Interpretation Reference Range Facility Cardiology Visit Reporton Cardiology Visit Report [facility] [address] [place] [address]. [address] [place] [address] OFFICE VISIT Date of Service: 12/26/24 MR#: [id number] Acct: [id number] Name: YUAN SMITH Rep #: [id number] : 1950 Provider: Dr. Santy ibarra MD Age/Sex: 74/M Location: [facility] Status: Signed HPI HPI History of Present Illness Details: Patient is a very pleasant 74-year-old white male that comes today for monitoring his cardiovascular status. The patient has known coronary disease status post a DEL CID to the LAD and a staged PCI with stenting of the circumflex and right coronary done at [facility]. He has a history of paroxysmal atrial fibrillation which he treats with pill in a pocket with metoprolol. He is on metoprolol succinate 25 mg once a day. He had an episode about 3 weeks ago where he woke with what he felt was atrial fibrillation he is usually aware when he goes into atrial fibs. He had had a couple of beers the night before and took an extra 25 mg of metoprolol and about an hour later he converted to sinus rhythm. The patient is on long-term Eliquis without any nuisance bleeding. When the patient goes into atrial fibrillation he does develop dyspnea on exertion he was able to send us a rhythm strip which confirmed that he was in atrial fibrillation November 21, 2024 and it broke as noted with metoprolol pill in the pocket treatment. The patient is fairly active in his home environment he does feel that he tires easier than he used to be attributes this to age. He denies any lower extremity edema denies any significant dyspnea on exertion denies any chest pain. He denies any syncope or near syncope. He does have his chronic shortness of breath with climbing stairs. Intake Vital Signs 04/08/24 10:32 12/26/24 13:49 Height 6 ft 3 in 6 ft 3 in Weight: 201 lb 203 lb BMI 25.1 25.3 BP 120/62 129/76 H Blood Pressure Location Lt brachial Lt brachial Position Sitting Sitting Respiration 18 16 Pulse 55 L 65 Pulse Source Monitor Monitor Pulse Oximetry (%) 98 Intake Visit Reasons: 9 M FU/AFIB Labor Relations Officer Required: No Accompanied by: Self Is patient in pain?: No Allergies chlorhexidine (From Hibiclens) Allergy (Intermediate, Verified 12/26/24 13:51) rash Medications ???Medication ???Instructions ???Recorded ???Confirmed ???Type aspirin 81 mg tablet,delayed 81 mg PO DAILY heart health 12/26/24 History release (Adult Low Dose Aspirin) escitalopram oxalate 20 mg tablet 20 mg PO DAILY 06/26/23 12/26/24 History metoprolol succinate 25 mg 25 mg PO QDAY #90 tabs 04/08/24 Rx tablet,extended release 24 hr (Toprol XL) apixaban 5 mg tablet (Eliquis) 5 mg PO BID #180 tabs 10/07/2407/10 Rx atorvastatin 20 mg tablet 40 mg PO QDAY 12/26/24 12/26/24 Hi story Ejection fraction %: 55 Have you fallen in the past year?: No PFSH Medical History Hyperlipemia Benign essential HTN PAF (paroxysmal atrial fibrillation) Atherosclerotic heart disease of [place] coronary artery without angina pectoris Abnormal stress test New onset atrial fibrillation Multiple thyroid nodules Tenosynovitis of hand Schwannoma Erectile dysfunction TMJ (dislocation of temporomandibular joint) Surgical History History of coronary artery bypass surgery ( 09/01/20) History of left heart catheterization (LHC) ( 06/16/20) S/P coronary artery stent placement ( 06/16/20) S/P rotator cuff repair H/O oral surgery S/P arthroscopic surgery of right knee S/P arthroscopic surgery of left knee H/O shoulder surgery Family History Grandfather Cancer Diabetes Mother Hypertension CVA (cerebral vascular accident) Father Cancer Grandmother Hypertension Aunt CVA (cerebral vascular accident) Other Heart disease Social History Smoking Status: Never smoker alcohol intake: current Alcohol type: beer substance use type: does not use caffeine: Yes ROS Const Const: Negative for fatigue, weakness, headache(s), daytime sleepiness or difficulty sleeping ENT ENT: Negative for headache(s), dizziness or Nosebleed/epistaxis Cardio Chest Pain: No Palpitations: Yes (about 3 weeks ago) Edema: None Resp Respiratory: Positive for SOB with activity (climbing stairs); Negative for SOB at rest, SOB orthopnea SOB lying down or Cough GI GI: Negative nausea, vomiting or heartburn Neuro Neuro: Positive for vertigo; Negative for dizziness, lightheadedness, near syncope, headache(s) or weakness Endo Endo: Negative for fatigue Cardiology Exam Const Appearance: cooperative, healthy ap (more content not included)... Normal [facility] PSA,Total - Annual Screenon 07-03-2024 PSA,TOT SCREEN 2.44 ng/mL Normal 0.00-4.00 [facility] Comment on above: Order Comment: Order Date: 07/03/24 Order Info: [id number] - PSA Result Comment: This test was performed using the TPSA assay method for the Revisu chemistry system. Values obtained with different assay methods cannot be used interchangably. When changing PSA assays in the course of monitoring a patient, additional sequential testing should be carried out to confirm baseline values. Performed By: #### L 501.9910 #### [facility] [address] [place], [place], [address] [employer] Decub and/or Erecton 04-26-2024 [employer] Decub and/or Erect [facility] Imaging Services [address] [place], [place] [address] [employer] Decub and/or Erect MR#: [id number] Acct: [id number] Name: YUAN SMITH Rep #: [id number] : 1950 M 74 From: Goldie Mejia MD PCP: Dr. Angel Guzman MD Status: [facility] Study: [employer] Decub and/or Erect Date of Exam: 04/26 Exam# [id number] Ordering Dr: Angel Guzman MD [id number] EXAM: XR ABDOMEN, 4 VIEWS CLINICAL INDICATION: ABDOMINAL PAIN TECHNIQUE: Frontal view of the abdomen/pelvis, 2 supine and 2 upright views. COMPARISON: No relevant prior studies available. FINDINGS: LOWER THORAX: See below. INTRAPERITONEAL SPACE: No free air. GASTROINTESTINAL TRACT: Mild stool in the colon and rectum. Minimal small bowel gas. Non-obstructive. No bowel or stomach distention. ORGANS: Unremarkable as visualized. No organomegaly. No abnormal calcifications. BONES/JOINTS: Multilevel thoracolumbar disc space narrowing, vacuum disc, spondylosis. The lung bases are overexposed, the heart margin is not well seen. No definite infiltrate or effusion. SOFT TISSUES: No acute pathology. RAD/[employer] Decub and/or Erect IMPRESSION: No specific acute abnormality. Electronically Signed: Goldie Mejia MD at 19:54 EDT Reading Location ID and State: [facility] / [place] Tel , Service support , CC: Dr. Angel Guzman MD Facilities Maintenance Supervisor: Signed Normal [facility] CBC W/Diff, Automatedon 04-16 Absolute Lymph 1.46 X10 3/uL Normal 0.83-4.51 [facility] Comment on above: Order Comment: Order Date: 04/26/24 Order Info: 0184- - CBCD Performed By: #### L 100.0100, L500.4050, L501.2450 #### [facility] [address] [place], [address] Absolute Neut 8.8 X10 3/uL High 2.0-7.7 [facility] Comment on above: Order Comment: Order Date: 04/26/24 Order Info: 018- - CBCD Performed By: #### L 100.0100, L500.4050, L501.2450 #### [facility] [address] [place], [address] Basophils/100 WBC (Bld) 0.3 % Normal 0-1 [facility] Comment on above: Order Comment: Order Date: 04/26/24 Order Info: 018- - CBCD Performed By: #### L 100.0100, L500.4050, L501.2450 #### [facility] [address] [place], [address] Eosinophils/100 WBC (Bld) 0.4 % Normal 0-5 [facility] Comment on above: Order Comment: Order Date: 04/26/24 Order Info: 018-1 - CBCD Performed By: #### L 100.0100, L500.4050, L501.2450 #### [facility] [address] [place], [address] Erythrocyte distribution width (RBC) [Ratio] 12.8 % Normal 11.6-14.6 [facility] Comment on above: Order Comment: Order Date: 04/26/24 Order Info: 0184-1 - CBCD Performed By: #### L 100.0100, L500.4050, L501.2450 #### [facility] [address] [place], [address] Hematocrit (Bld) [Volume fraction] 45.4 % Normal 40-54 [facility] Comment on above: Order Comment: Order Date: 04/26/24 Order Info: 018- - CBCD Performed By: #### L 100.0100, L500.4050, L501.2450 #### [facility] [address] [place], [address] Hemoglobin (Bld) [Mass/Vol] 14.5 g/dL Normal 13.0-16.5 [facility] Comment on above: Order Comment: Order Date: 04/26/24 Order Info: 018- - CBCD Performed By: #### L 100.0100, L500.4050, L501.2450 #### [facility] [address] [place], [address] IG% 0.600 Normal 0.0-0.9 [facility] Comment on above: Order Comment: Order Date: 04/26/24 Order Info: 018- - CBCD Result Comment: IG% - Immature Granulocytes (promyelocytes, myelocytes and metamyelocytes) > 1% indicates that a LEFT SHIFT is Present. Performed By: #### L 100.0100, L500.4050, L501.2450 #### [facility] [address] [place], [address] Lymphocytes/100 WBC (Bld) 13.1 % Low 19-41 [facility] Comment on above: Order Comment: Order Date: 04/26/24 Order Info: 018- - CBCD Performed By: #### L 100.0100, L500.4050, L501.2450 #### [facility] [address] [place], [address] MCH (RBC) [Entitic mass] 29.4 pg Normal 27.0-32.0 [facility] Comment on above: Order Comment: Order Date: 04/26/24 Order Info: 018-1 - CBCD Performed By: #### L 100.0100, L500.4050, L501.2450 #### [facility] [address] [place], [address] MCHC (RBC) [Mass/Vol] 31.9 g/dL Low 32-36 [facility] Comment on above: Order Comment: Order Date: 04/26/24 Order Info: 018- - CBCD Performed By: #### L 100.0100, L500.4050, L501.2450 #### [facility] [address] [place], [address] MCV (RBC) [Entitic vol] 91.9 fL Normal 80-94 [facility] Comment on above: Order Comment: Order Date: 04/26/24 Order Info: 018- - CBCD Performed By: #### L 100.0100, L500.4050, L501.2450 #### [facility] [address] [place], [address] Monocytes/100 WBC (Bld) 6.5 % Normal 0-10 [facility] Comment on above: Order Comment: Order Date: 04/26/24 Order Info: 018-1 - CBCD Performed By: #### L 100.0100, L500.4050, L501.2450 #### [facility] [address] [place], [address] Neutrophils/100 WBC (Bld) 79.1 % High 47-70 [facility] Comment on above: Order Comment: Order Date: 04/26/24 Order Info: 0184-1 - CBCD Performed By: #### L 100.0100, L500.4050, L501.2450 #### [facility] [address] [place], [address] Nucleated RBC (Bld) [#/Vol] 0 10*3/uL Normal 0-5 [facility] Comment on above: Order Comment: Order Date: 04/26/24 Order Info: 0184-1 - CBCD Performed By: #### L 100.0100, L500.4050, L501.2450 #### [facility] [address] [place], [address] Platelet mean volume (Bld) [Entitic vol] 10.0 fL Normal 6.2-12.0 [facility] Comment on above: Order Comment: Order Date: 04/26/24 Order Info: 0184-1 - CBCD Performed By: #### L 100.0100, L500.4050, L501.2450 #### [facility] [address] [place], [address] Platelets (Bld) [#/Vol] 243 10*3/uL Normal 150-450 [facility] Comment on above: Order Comment: Order Date: 04/26/24 Order Info: 0184-1 - CBCD Performed By: #### L 100.0100, L500.4050, L501.2450 #### [facility] [address] [place], [address] RBC (Bld) [#/Vol] 4.94 10*6/uL Normal 4.6-6.2 [facility] Comment on above: Order Comment: Order Date: 04/26/24 Order Info: 0184-1 - CBCD Performed By: #### L 100.0100, L500.4050, L501.2450 #### [facility] [address] [place], [address] RDW SD 43.3 fl Normal 35.1-43.9 [facility] Comment on above: Order Comment: Order Date: 04/26/24 Order Info: 0184-1 - CBCD Performed By: #### L 100.0100, L500.4050, L501.2450 #### [facility] [address] [place], [address] WBC (Bld) [#/Vol] 11.2 10*3/uL High 4.4-11.0 [facility] Comment on above: Order Comment: Order Date: 04/26/24 Order Info: 0184-1 - CBCD Performed By: #### L 100.0100, L500.4050, L501.2450 #### [facility] [address] [place], [address] Comprehensive Metabolic Prof ilon 04-26-2024 Albumin [Mass/Vol] 3.3 g/dL Normal 3.2-5.0 [facility] Comment on above: Order Comment: Order Date: 04/26/24 Order Info: 0786-1 - CMP Order Info: 3040-3 - LIPASE Performed By: #### L 100.0100, L500.4050, L501.2450 #### [facility] [address] [place], [address] Albumin/Globulin [Mass ratio] 0.7 {ratio} Low 0.9-2.4 [facility] Comment on above: Order Comment: Order Date: 04/26/24 Order Info: 0786-1 - CMP Order Info: 3040-3 - LIPASE Performed By: #### L 100.0100, L500.4050, L501.2450 #### [facility] [address] [place], [place], [address] ALK P 105 U/L Normal 45-117 [facility] Comment on above: Order Comment: Order Date: 04/26/24 Order Info: 0786-1 - CMP Order Info: 3040-3 - LIPASE Performed By: #### L 100.0100, L500.4050, L501.2450 #### [facility] [address] [place], [address] ALT [Catalytic activity/Vol] 48 U/L Normal 16-61 [facility] Comment on above: Order Comment: Order Date: 04/26/24 Order Info: 0786-1 - CMP Order Info: 3040-3 - LIPASE Performed By: #### L 100.0100, L500.4050, L501.2450 #### [facility] [address] [place], [address] AST [Catalytic activity/Vol] 28 U/L Normal 15-37 [facility] Comment on above: Order Comment: Order Date: 04/26/24 Order Info: 0786-1 - CMP Order Info: 3040-3 - LIPASE Performed By: #### L 100.0100, L500.4050, L501.2450 #### [facility] [address] [place], [address] Bilirubin [Mass/Vol] 1.10 mg/dL High 0.20-1.00 [facility] Comment on above: Order Comment: Order Date: 04/26/24 Order Info: 0786-1 - CMP Order Info: 3040-3 - LIPASE Result Comment: For patients on eltrombopag therapy, use of Dimension [place] TBIL is not recommended. Performed By: #### L 100.0100, L500.4050, L501.2450 #### [facility] [address] [place], [address] BUN/CRE 15.4 RATIO Normal 10-20 [facility] Comment on above: Order Comment: Order Date: 04/26/24 Order Info: 0786-1 - CMP Order Info: 3040-3 - LIPASE Performed By: #### L 100.0100, L500.4050, L501.2450 #### [facility] [address] [place], [address] CA,Total 9.8 mg/dL Normal 8.5-10.1 [facility] Comment on above: Order Comment: Order Date: 04/26/24 Order Info: 0786-1 - CMP Order Info: 3040-3 - LIPASE Performed By: #### L 100.0100, L500.4050, L501.2450 #### [facility] [address] [place], [address] Chloride [Moles/Vol] 104 mmol/L Normal 98-107 [facility] Comment on above: Order Comment: Order Date: 04/26/24 Order Info: 1 - CMP Order Info: 3039-3 - LIPASE Performed By: #### L 100.0100, L500.4050, L501.2450 #### [facility] [address] [place], [address] CO2 [Moles/Vol] 26.0 mmol/L Normal 21.0-32.0 [facility] Comment on above: Order Comment: Order Date: 04/26/24 Order Info: 785-07 - CMP Order Info: 3 - LIPASE Performed By: #### L 100.0100, L500.4050, L501.2450 #### [facility] [address] [place], [address] Creatinine [Mass/Vol] 1.23 mg/dL Normal 0.70-1.30 [facility] Comment on above: Order Comment: Order Date: 04/26/24 Order Info: [id number] - CMP Order Info: 3 - LIPASE Result Comment: The validity of the calculated GFR GFRAA in patients over 70 years has not been determined. Clinical correlation is essential. Performed By: #### L 100.0100, L500.4050, L501.2450 #### [facility] [address] [place], [address] EST GFR - AA 74 mL/min Normal >60 [facility] Comment on above: Order Comment: Order Date: 04/26/24 Order Info: 1 - CMP Order Info: 3040-3 - LIPASE Result Comment: Afri can Bulgarian GFR Calc Performed By: #### L 100.0100, L500.4050, L501.2450 #### [facility] [address] [place], [address] GAP 6 Normal 5-15 [facility] Comment on above: Order Comment: Order Date: 04/26/24 Order Info: 0786- - CMP Order Info: 3040-3 - LIPASE Performed By: #### L 100.0100, L500.4050, L501.2450 #### [facility] [address] [place], [address] GFR/1.73 sq M.predicted among non-blacks MDRD (S/P/Bld) [Vol rate/Area] 62 mL/min/{1.73_m2} Normal >60 [facility] Comment on above: Order Comment: Order Date: 04/26/24 Order Info: 07 - CMP Order Info: 3040-3 - LIPASE Result Comment: Non- GFR Calc Performed By: #### L 100.0100, L500.4050, L501.2450 #### [facility] [address] [place], [address] Globulin (S) [Mass/Vol] 4.5 g/dL High 2.2-4.2 [facility] Comment on above: Order Comment: Order Date: 04/26/24 Order Info: 0786- - CMP Order Info: 3040-3 - LIPASE Performed By: #### L 100.0100, L500.4050, L501.2450 #### [facility] [address] [place], [address] Glucose [Mass/Vol] 76 mg/dL Normal 74-106 [facility] Comment on above: Order Comment: Order Date: 04/26/24 Order Info: 0786- - CMP Order Info: 3040-3 - LIPASE Performed By: #### L 100.0100, L500.4050, L501.2450 #### [facility] [address] [place], [address] Potassium [Moles/Vol] 3.9 mmol/L Normal 3.5-5.1 [facility] Comment on above: Order Comment: Order Date: 04/26/24 Order Info: 0786-1 - CMP Order Info: 3040-3 - LIPASE Performed By: #### L 100.0100, L500.4050, L501.2450 #### [facility] [address] [place], [address] Sodium [Moles/Vol] 136 mmol/L Normal 136-145 [facility] Comment on above: Order Comment: Order Date: 04/26/24 Order Info: 0786-1 - CMP Order Info: 3040-3 - LIPASE Performed By: #### L 100.0100, L500.4050, L501.2450 #### [facility] [address] [place], [address] T PROT 7.8 g/dL Normal 6.4-8.2 [facility] Comment on above: Order Comment: Order Date: 04/26/24 Order Info: 0786-1 - CMP Order Info: 3040-3 - LIPASE Performed By: #### L 100.0100, L500.4050, L501.2450 #### [facility] [address] [place], [address] Urea nitrogen [Mass/Vol] 19 mg/dL High 7-18 [facility] Comment on above: Order Comment: Order Date: 04/26/24 Order Info: 0786-1 - CMP Order Info: 3040-3 - LIPASE Performed By: #### L 100.0100, L500.4050, L501.2450 #### [facility] [address] [place], [address] Lipaseon 04-26-2024 Lipase [Catalytic activity/Vol] 23 U/L Normal 13-75 [facility] Comment on above: Order Comment: Order Date: 04/26/24 Order Info: 0786-1 - CMP Order Info: 3040-3 - LIPASE Result Comment: Adnra rodríguez note: LIPASE revised reference range effective 22. New Lipase methodology. Expected to produce lower values than the previous assay method. NEW Reference Range: 13 - 75 U/L Performed By: #### L 100.0100, L500.4050, L501.2450 #### [facility] [address] [place], [address] Cardiology Visit Reporton Cardiology Visit Report [facility] [address] [place] [address] OFFICE VISIT Date of Service: 04/08/24 MR#: [id number] Acct: [id number] Name: YUAN SMITH Rep #: [id number] : 1950 Provider: MENDOZA Mejía Age/Sex: 73/M Location: [facility] Status: Signed HPI HPI History of Present Illness Details: Yuan Smith is a 73-year-old gentleman that presents here today for a cardiovascular follow-up with a history of underlying CAD status post LCx and RCA PTCA/stent status post LAD robotic assisted DEL CID graft ([facility]-August 2020), paroxysmal atrial fibrillation, and hypertension. He is having issues with his back. He does have less than 2% Afib on his watch. He is concerned about weight gain. He does have a lower HR. He does not have any chest pain or worsening SOB. He does not have any edema. He is active and does not have any problems. He does not have any chest pain. He does not have any lightheadedness or dizziness. 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: No Is patient in pain?: No Allergies chlorhexidine (From Hibiclens) Allergy (Intermediate, Verified 04/08/24 10:36) rash Medications ???Medication ???Instructions ???Recorded ???Confirmed ???Type aspirin 81 mg tablet,delayed 81 mg PO DAILY heart health 05/05/20 04/08/24 History release (Adult Low Dose Aspirin) escitalopram oxalate 20 mg tablet 20 mg PO DAILY 06/26/23 04/08/24 History apixaban 5 mg tablet (Eliquis) 5 mg PO BID #60 tabs 12/18/23 04/08/24 Rx atorvastatin 20 mg tablet See Rx Instructions .Route 04/08/24 04/08/24 Rx .COMPLEX #90 tabs metoprolol succinate 25 mg 25 mg PO QDAY #90 tabs 04/08/24 04/08/24 Rx tablet,extended release 24 hr (Toprol XL) Have you fallen in the past year?: No PFSH Medical History (Updated 04/08/24 @ 10:51 by Patricia DONALDSON, PA) Hyperlipemia Benign essential HTN PAF (paroxysmal atrial fibrillation) Atherosclerotic heart disease of [place] coronary artery without angina pectoris Abnormal stress test New onset atrial fibrillation Multiple thyroid nodules Tenosynovitis of hand Schwannoma Erectile dysfunction TMJ (dislocation of temporomandibular joint) Surgical History History of coronary artery bypass surgery ( 09/01/20) History of left heart catheterization (LHC) ( 06/16/20) S/P coronary artery stent placement ( 06/16/20) S/P rotator cuff repair H/O oral surgery S/P arthroscopic surgery of right knee S/P arthroscopic surgery of left knee H/O shoulder surgery Family History Grandfather Cancer Diabetes Mother Hypertension CVA (cerebral vascular accident) Father Cancer Grandmother Hypertension Aunt CVA (cerebral vascular accident) Other Heart disease Social History Smoking Status: Never smoker alcohol intake: current Alcohol type: beer substance use type: does not use caffeine: Yes ROS Const Const: Negative for fatigue, weakness, fever(s) or headache(s) Eyes Eyes: Negative for blind spots, loss of peripheral vision or transient loss of vision ENT ENT: Negative for headache(s), dizziness, tinnitus or Nosebleed/epistaxis Cardio Chest Pain: No Edema: None Muscle aches with walking: None Resp Respiratory: Positive for SOB with activity; Negative for SOB at rest or SOB orthopnea SOB lying down GI GI: Negative nausea, vomiting, heartburn or vomiting blood/hematemesis : Negative for hematuria Musc Musc: Negative for muscle aches/ myalgia Neuro Neuro: Negative for dizziness, lightheadedness, near syncope, syncope, headache(s) or weakness Dinesh Hematologic/Lymphati c: Negative for easy bleeding Endo Endo: Negative for fatigue Cardiology Exam Const Appearance: cooperative, healthy appearing, comfortable and no acute distress Nutritional Appearance: well nourished and overweight Orientation: alert, awake and oriented x3 Head Head: normal to inspection Ears: hearing grossly normal bilaterally Nose: external nose normal Face and Sinus: face symmetric Mouth: moist mucous membranes Eyes General: appearance normal, both eyes and all related structures Eyelids: eyelids normal EOM: EOM intact bilaterally Neck Neck: normal visual inspection and no JVD Carotids: normal carotid upstroke Chest Chest inspection (more content not included)... Normal [facility] Absolute lymphocyte countOrd ered By: Angel Guzman on 06-13-2023 Lymphocytes Auto (Unsp spec) [#/Vol] 1.02 10*3/uL 0.83-4.51 [facility] Basophil percentageOrdered B y: Angel Thomas on 06-13-2023 Basophils/100 WBC (Bld) 0.4 % 0-1 [facility] Bilirubin [Mass/Vol] 0.60 mg/dL 0.20-1.00 [facility] Comment on above: For patients on eltr ombopag therapy, use of Dimension [place] TBIL is not recommended. Chloride [Moles/Vol] 105 mmol/L 98-107 [facility] Cholesterol [Mass/Vol] 122 mg/dL <200 [facility] Comment on above: <200 mg/dL Desirable 200-240 mg/dL Borderline >240 mg/dL High Risk Eosinophils/100 WBC (Bld) 0.9 % 0-5 [facility] Glucose [Mass/Vol] 96 mg/dL 74-106 [facility] Neutrophils (Bld) [#/Vol] 9.4 10*3/uL 2.0-7.7 [facility] Neutrophils/100 WBC (Bld) 83.1 % 47-70 [facility] Potassium [Moles/Vol] 4.4 mmol/L 3.5-5.1 [facility] Protein [Mass/Vol] 7.7 g/dL 6.4-8.2 [facility] Sodium [Moles/Vol] 138 mmol/L 136-145 [facility] Triglyceride [Mass/Vol] 89 mg/dL <199 [facility] Comment on above: The drugs N-Acetylcy steine and Metamizole may falsely depress this assay.Serum Triglycerides Reference Interval Normal <150 mg/dL Borderline high 150 - 199 mg/dL High 200 - 499 mg/dL Very High > or = 500 mg/dL WBC (Bld) [#/Vol] 11.3 10*3/uL 4.4-11.0 [facility] Blood erythrocytes count (nu mber/volume)Ordered By: Angel Guzman on 06-13-2023 RBC (Bld) [#/Vol] 5.12 10*6/uL 4.6-6.2 [facility] Blood hemoglobin measurement (mass/volume)Ordered By: Angel Guzman on 06-13-2023 Hemoglobin (Bld) [Mass/Vol] 15.3 g/dL 13.0-16.5 [facility] Blood lymphocytes/100 leukoc ytesOrdered By: Angel Guzman on 06-13-2023 Lymphocytes/100 WBC (Bld) 9.1 % 19-41 [facility] Blood monocytes/100 leukocyt esOrdered By: Angel Guzman on 06-13-2023 Monocytes/100 WBC (Bld) 6.3 % 0-10 [facility] Blood platelet mean volumeOr dered By: Angel Guzman on 06-13-2023 Platelet mean volume (Bld) [Entitic vol] 9.3 fL 6.2-12.0 [facility] Determination of erythrocyte mean corpuscular volume (MCV)Ordered By: Angel Guzman on 06-13-2023 MCV (RBC) [Entitic vol] 92.6 fL 80-94 [facility] Hematocrit Auto (Bld) [Volum e fraction]Ordered By: Angel Guzman on 06-13-2023 Hematocrit (Bld) [Volume fraction] 47.4 % 40-54 [facility] - Chemistry and C hemistry - challengeOrdered By: Angel Guzman on 06-13-2023 ALP [Catalytic activity/Vol] 112 U/L 45-117 [facility] ALT [Catalytic activity/Vol] 44 U/L 16-61 [facility] CO2 [Moles/Vol] 25.0 mmol/L 21.0-32.0 [facility] Globulin (S) [Mass/Vol] 3.8 g/dL 2.2-4.2 [facility] Magnesium [Mass/Vol] 2.3 mg/dL 1.6-2.6 [facility] Urea nitrogen/Creatinine [Mass ratio] 20.4 mg/mg 10-20 [facility] - Hematology and Cell countsOrdered By: Angel Guzman on 06-13-2023 Erythrocyte distribution width (RBC) [Entitic vol] 43.8 fL 35.1-43.9 [facility] Erythrocyte distribution width (RBC) [Ratio] 12.8 % 11.6-14.6 [facility] Immature granulocytes/100 WBC (Bld) 0.200 % 0.0-0.9 [facility] Comment on above: IG% - Immature Granu locytes (promyelocytes, myelocytes and metamyelocytes) > 1% indicates that a LEFT SHIFT is Present. MCH (RBC) [Entitic mass] 29.9 pg 27.0-32.0 [facility] Nucleated RBC/100 WBC (Bld) [Ratio] 0 % 0-5 [facility] MCHC Auto (RBC) [Mass/Vol]Or dered By: Angel Guzman on 06-13-2023 MCHC (RBC) [Mass/Vol] 32.3 g/dL 32-36 [facility] No Panel InformationOrdered By: Angel Guzman on 06-13-2023 Estimated GFR (MDRD) Amer 87 mL/min >60 [facility] Comment on above: GFR Calc Estimated GFR (MDRD) Non-Af Amer 72 mL/min >60 [facility] Comment on above: Non- GFR Calc Prostate Specific Antigen Screen 2.00 ng/mL 0.00-4.00 [facility] Comment on above: This test was perfor med using the TPSA assay method for theDimension chemistry system. Values obtained with differentassay methods cannot be used interchangably.When changing PSA assays in the course of monitoring apatient, additional sequential testing should be carriedout to confirm baseline values. Thyroid Stimulating Hormone (TSH) 0.63 uIU/mL 0.358-3.74 [facility] Platelets bldOrdered By: Pranay Guzman on 06-13-2023 Platelets (Bld) [#/Vol] 209 10*3/uL 150-450 [facility] Serum or plasma albumin magda urement (mass/volume)Ordered By: Angel Guzman on 06-13-2023 Albumin [Mass/Vol] 3.9 g/dL 3.2-5.0 [facility] Serum or plasma albumin/glob ulin mass ratioOrdered By: Angel Guzman on 06-13-2023 Albumin/Globulin [Mass ratio] 1.0 {ratio} 0.9-2.4 [facility] Serum or plasma calcium magda urement (mass/volume)Ordered By: Angel Guzman on 06-13-2023 Calcium [Mass/Vol] 9.0 mg/dL 8.5-10.1 [facility] Serum or plasma cholesterol in HDL measurement (mass/volume)Ordered By: Angel Guzman on 06-13-2023 Cholesterol in HDL [Mass/Vol] 62 mg/dL >40 [facility] Comment on above: The drugs N-Acetylcy steine and Metamizole may falsely depress this assay. Reference Range HDL <40 mg/dL Low HDL Cholesterol HDL >or= 60 mg/dL High HDL Cholesterol Serum or plasma cholesterol in VLDL measurement (mass/volume)Ordered By: Angel Guzman on 06-13-2023 Cholesterol in VLDL [Mass/Vol] 18 mg/dL 5-40 [facility] Serum or plasma creatinine m easurement (mass/volume)Ordered By: Angel Guzman on 06-13-2023 Creatinine [Mass/Vol] 1.08 mg/dL 0.70-1.30 [facility] Comment on above: The validity of the calculated GFR & GFRAA in patients over 70 years has not been determined. Clinical correlation is essential. Serum or plasma low density lipoprotein (LDL) cholesterol measurement (mass/volume)Ordered By: Angel Guzman on 06-13-2023 Cholesterol in LDL [Mass/Vol] 42 mg/dL 0-130 [facility] Serum or plasma urea nitroge n measurement (mass/volume)Ordered By: Angel Guzman on 06-13-2023 Urea nitrogen [Mass/Vol] 22 mg/dL 7-18 [facility] Thin prep Papanicolaou smear with manual screeningOrdered By: Angel Guzman on 06-13-2023 Thin prep Papanicolaou smear with manual screening 28 U/L 15-37 [facility] Thin prep Papanicolaou smear with manual screening 8 5-15 [facility] Absolute lymphocyte countOrd ered By: Angel Guzman on 02-09-2023 Lymphocytes Auto (Unsp spec) [#/Vol] 2.16 10*3/uL 0.83-4.51 [facility] Basophil percentageOrdered B y: Angel Guzman on 02-09-2023 Basophils/100 WBC (Bld) 0.8 % 0-1 [facility] Bilirubin [Mass/Vol] 0.60 mg/dL 0.20-1.00 [facility] Comment on above: For patients on eltr ombopag therapy, use of Dimension [place] TBIL is not recommended. Chloride [Moles/Vol] 105 mmol/L 98-107 [facility] Cholesterol [Mass/Vol] 115 mg/dL <200 [facility] Comment on above: <200 mg/dL Desirable 200-240 mg/dL Borderline >240 mg/dL High Risk Eosinophils/100 WBC (Bld) 4.1 % 0-5 [facility] Glucose [Mass/Vol] 96 mg/dL 74-106 [facility] Neutrophils (Bld) [#/Vol] 3.7 10*3/uL 2.0-7.7 [facility] Neutrophils/100 WBC (Bld) 55.5 % 47-70 [facility] Potassium [Moles/Vol] 4.3 mmol/L 3.5-5.1 [facility] Protein [Mass/Vol] 6.8 g/dL 6.4-8.2 [facility] Sodium [Moles/Vol] 136 mmol/L 136-145 [facility] Triglyceride [Mass/Vol] 107 mg/dL <199 [facility] Comment on above: The drugs N-Acetylcy steine and Metamizole may falsely depress this assay.Serum Triglycerides Reference Interval Normal <150 mg/dL Borderline high 150 - 199 mg/dL High 200 - 499 mg/dL Very High > or = 500 mg/dL WBC (Bld) [#/Vol] 6.7 10*3/uL 4.4-11.0 [facility] Blood erythrocytes count (nu mber/volume)Ordered By: Angel Guzman on 02-09-2023 RBC (Bld) [#/Vol] 4.77 10*6/uL 4.6-6.2 [facility] Blood hemoglobin measurement (mass/volume)Ordered By: Angel Guzman on 02-09-2023 Hemoglobin (Bld) [Mass/Vol] 14.2 g/dL 13.0-16.5 [facility] Blood lymphocytes/100 leukoc ytesOrdered By: Angel Guzman on 02-09-2023 Lymphocytes/100 WBC (Bld) 32.5 % 19-41 [facility] Blood monocytes/100 leukocyt esOrdered By: Angel Guzman on 02-09-2023 Monocytes/100 WBC (Bld) 6.9 % 0-10 [facility] Blood platelet mean volumeOr dered By: Angel Guzman on 02-09-2023 Platelet mean volume (Bld) [Entitic vol] 10.2 fL 6.2-12.0 [facility] Determination of erythrocyte mean corpuscular volume (MCV)Ordered By: Angel Guzman on 02-09-2023 MCV (RBC) [Entitic vol] 94.3 fL 80-94 [facility] Hematocrit Auto (Bld) [Volum e fraction]Ordered By: Angel Guzman on 02-09-2023 Hematocrit (Bld) [Volume fraction] 45.0 % 40-54 [facility] - Chemistry and C hemistry - challengeOrdered By: Angel Guzman on 02-09-2023 ALP [Catalytic activity/Vol] 105 U/L 45-117 [facility] ALT [Catalytic activity/Vol] 33 U/L 16-61 [facility] CO2 [Moles/Vol] 28.0 mmol/L 21.0-32.0 [facility] Globulin (S) [Mass/Vol] 3.3 g/dL 2.2-4.2 [facility] Magnesium [Mass/Vol] 2.3 mg/dL 1.6-2.6 [facility] Urea nitrogen/Creatinine [Mass ratio] 16.7 mg/mg 10-20 [facility] - Hematology and Cell countsOrdered By: Angel Guzman on 02-09-2023 Erythrocyte distribution width (RBC) [Entitic vol] 42.9 fL 35.1-43.9 [facility] Erythrocyte distribution width (RBC) [Ratio] 12.4 % 11.6-14.6 [facility] Immature granulocytes/100 WBC (Bld) 0.200 % 0.0-0.9 [facility] Comment on above: IG% - Immature Granu locytes (promyelocytes, myelocytes and metamyelocytes) > 1% indicates that a LEFT SHIFT is Present. MCH (RBC) [Entitic mass] 29.8 pg 27.0-32.0 [facility] Nucleated RBC/100 WBC (Bld) [Ratio] 0 % 0-5 [facility] MCHC Auto (RBC) [Mass/Vol]Or dered By: Angel Guzman on 02-09-2023 MCHC (RBC) [Mass/Vol] 31.6 g/dL 32-36 [facility] No Panel InformationOrdered By: Angel Guzman on 02-09-2023 Estimated GFR (MDRD) Amer 87 mL/min >60 [facility] Comment on above: GFR Calc Estimated GFR (MDRD) Non-Af Amer 72 mL/min >60 [facility] Comment on above: Non- GFR Calc Thyroid Stimulating Hormone (TSH) 0.83 uIU/mL 0.358-3.74 [facility] Platelets bldOrdered By: Pranay Guzman on 02-09-2023 Platelets (Bld) [#/Vol] 223 10*3/uL 150-450 [facility] Serum or plasma albumin magda urement (mass/volume)Ordered By: Angel Guzman on 02-09-2023 Albumin [Mass/Vol] 3.5 g/dL 3.2-5.0 [facility] Serum or plasma albumin/glob ulin mass ratioOrdered By: Angel Guzman on 02-09-2023 Albumin/Globulin [Mass ratio] 1.1 {ratio} 0.9-2.4 [facility] Serum or plasma calcium magda urement (mass/volume)Ordered By: Angel Guzman on 02-09-2023 Calcium [Mass/Vol] 8.9 mg/dL 8.5-10.1 [facility] Serum or plasma cholesterol in HDL measurement (mass/volume)Ordered By: Angel Guzman on 02-09-2023 Cholesterol in HDL [Mass/Vol] 60 mg/dL >40 [facility] Comment on above: The drugs N-Acetylcy steine and Metamizole may falsely depress this assay. Reference Range HDL <40 mg/dL Low HDL Cholesterol HDL >or= 60 mg/dL High HDL Cholesterol Serum or plasma cholesterol in VLDL measurement (mass/volume)Ordered By: Angel Guzman on 02-09-2023 Cholesterol in VLDL [Mass/Vol] 21 mg/dL 5-40 [facility] Serum or plasma creatinine m easurement (mass/volume)Ordered By: Angel Guzman on 02-09-2023 Creatinine [Mass/Vol] 1.08 mg/dL 0.70-1.30 [facility] Comment on above: The validity of the calculated GFR & GFRAA in patients over 70 years has not been determined. Clinical correlation is essential. Serum or plasma low density lipoprotein (LDL) cholesterol measurement (mass/volume)Ordered By: Angel Guzman on 02-09-2023 Cholesterol in LDL [Mass/Vol] 34 mg/dL 0-130 [facility] Serum or plasma urea nitroge n measurement (mass/volume)Ordered By: Angel Guzman on 02-09-2023 Urea nitrogen [Mass/Vol] 18 mg/dL 7-18 [facility] Thin prep Papanicolaou smear with manual screeningOrdered By: Angel Guzman on 02-09-2023 Thin prep Papanicolaou smear with manual screening 21 U/L 15-37 [facility] Thin prep Papanicolaou smear with manual screening 3 5-15 [facility] Basophil percentageOrdered B y: Tamie Mcleod on 01-19-2023 Chloride [Moles/Vol] 108 mmol/L 98-107 [facility] Glucose [Mass/Vol] 78 mg/dL 74-106 [facility] Potassium [Moles/Vol] 4.1 mmol/L 3.5-5.1 [facility] Sodium [Moles/Vol] 139 mmol/L 136-145 [facility] Laboratory - Chemistry and C hemistry - challengeOrdered By: Tamie Mcleod on 01-19-2023 CO2 [Moles/Vol] 22.0 mmol/L 21.0-32.0 [facility] Magnesium [Mass/Vol] 2.3 mg/dL 1.6-2.6 [facility] Urea nitrogen/Creatinine [Mass ratio] 16.5 mg/mg 10-20 [facility] No Panel InformationOrdered By: Tamie Mcleod on 01-19-2023 Estimated GFR (MDRD) Amer 81 mL/min >60 [facility] Comment on above: GFR Calc Estimated GFR (MDRD) Non-Af Amer 67 mL/min >60 [facility] Comment on above: Non- GFR Calc Serum or plasma calcium magda urement (mass/volume)Ordered By: Tamie Mcleod on 01-19-2023 Calcium [Mass/Vol] 9.1 mg/dL 8.5-10.1 [facility] Serum or plasma creatinine m easurement (mass/volume)Ordered By: Tamie Mcleod on 01-19-2023 Creatinine [Mass/Vol] 1.15 mg/dL 0.70-1.30 [facility] Comment on above: The validity of the calculated GFR & GFRAA in patients over 70 years has not been determined. Clinical correlation is essential. Serum or plasma urea nitroge n measurement (mass/volume)Ordered By: Tamie Mcleod on 01-19-2023 Urea nitrogen [Mass/Vol] 19 mg/dL 7-18 [facility] Thin prep Papanicolaou smear with manual screeningOrdered By: Tamie Mcleod on 01-19-2023 Thin prep Papanicolaou smear with manual screening 9 5-15 [facility] Basophil percentageOrdered B y: Patricia Núñez on 12-09-2022 Chloride [Moles/Vol] 109 mmol/L 98-107 [facility] Glucose [Mass/Vol] 78 mg/dL 74-106 [facility] Potassium [Moles/Vol] 4.1 mmol/L 3.5-5.1 [facility] Sodium [Moles/Vol] 143 mmol/L 136-145 [facility] WBC (Bld) [#/Vol] 7.4 10*3/uL 4.4-11.0 [facility] Blood erythrocytes count (nu mber/volume)Ordered By: Patricia Núñez on 12-09-2022 RBC (Bld) [#/Vol] 5.05 10*6/uL 4.6-6.2 [facility] Blood hemoglobin measurement (mass/volume)Ordered By: Patricia Núñez on 12-09-2022 Hemoglobin (Bld) [Mass/Vol] 15.4 g/dL 13.0-16.5 [facility] Blood platelet mean volumeOr dered By: Patricia Núñez on 12-09-2022 Platelet mean volume (Bld) [Entitic vol] 9.7 fL 6.2-12.0 [facility] Determination of erythrocyte mean corpuscular volume (MCV)Ordered By: Patricia Núñez on 12-09-2022 MCV (RBC) [Entitic vol] 93.3 fL 80-94 [facility] Hematocrit Auto (Bld) [Volum e fraction]Ordered By: Patricia Núñez on 12-09-2022 Hematocrit (Bld) [Volume fraction] 47.1 % 40-54 [facility] Laboratory - Chemistry and C hemistry - challengeOrdered By: Patricia Núñez on 12-09-2022 CO2 [Moles/Vol] 28.0 mmol/L 21.0-32.0 [facility] Magnesium [Mass/Vol] 2.3 mg/dL 1.6-2.6 [facility] Urea nitrogen/Creatinine [Mass ratio] 21.8 mg/mg 10-20 [facility] Laboratory - Hematology and Cell countsOrdered By: Patricia Núñez on 12-09-2022 Erythrocyte distribution width (RBC) [Entitic vol] 43.8 fL 35.1-43.9 [facility] Erythrocyte distribution width (RBC) [Ratio] 12.8 % 11.6-14.6 [facility] MCH (RBC) [Entitic mass] 30.5 pg 27.0-32.0 [facility] MCHC Auto (RBC) [Mass/Vol]Or dered By: Patricia Núñez on 12-09-2022 MCHC (RBC) [Mass/Vol] 32.7 g/dL 32-36 [facility] No Panel InformationOrdered By: Patricia Núñez on 12-09-2022 Estimated GFR (MDRD) Amer 94 mL/min >60 [facility] Comment on above: GFR Calc Estimated GFR (MDRD) Non-Af Amer 78 mL/min >60 [facility] Comment on above: Non- GFR Calc Thyroid Stimulating Hormone (TSH) 1.00 uIU/mL 0.358-3.74 [facility] Platelets bldOrdered By: Jose C Núñez on 12-09-2022 Platelets (Bld) [#/Vol] 255 10*3/uL 150-450 [facility] Serum or plasma calcium magda urement (mass/volume)Ordered By: Patricia Núñez on 12-09-2022 Calcium [Mass/Vol] 9.2 mg/dL 8.5-10.1 [facility] Serum or plasma creatinine m easurement (mass/volume)Ordered By: Patricia Núñez on 12-09-2022 Creatinine [Mass/Vol] 1.01 mg/dL 0.70-1.30 [facility] Comment on above: The validity of the calculated GFR & GFRAA in patients over 70 years has not been determined. Clinical correlation is essential. Serum or plasma urea nitroge n measurement (mass/volume)Ordered By: Patricia Núñez on 12-09-2022 Urea nitrogen [Mass/Vol] 22 mg/dL 7-18 [facility] Thin prep Papanicolaou smear with manual screeningOrdered By: Patricia Núñez on 12-09-2022 Thin prep Papanicolaou smear with manual screening 6 5-15 [facility] Absolute lymphocyte counton 03-13-2022 Lymphocytes Auto (Unsp spec) [#/Vol] 2.39 10*3/uL 0.83-4.51 [facility] Work Phone: Basophil percentageon 2021 Basophils/100 WBC (Bld) 0.5 % 0-1 [facility] Work Phone: Chloride [Moles/Vol] 109 mmol/L 98-107 [facility] Work [facility]: Eosinophils/100 WBC (Bld) 4.4 % 0-5 [facility] Work Phone: Glucose [Mass/Vol] 96 mg/dL 74-106 [facility] Work Phone: Neutrophils (Bld) [#/Vol] 4.6 10*3/uL 2.0-7.7 [facility] Work Phone: Neutrophils/100 WBC (Bld) 58.4 % 47-70 [facility] Work Phone: Potassium [Moles/Vol] 3.8 mmol/L 3.5-5.1 [facility] Work Phone: Sodium [Moles/Vol] 143 mmol/L 136-145 [facility] Work Phone: WBC (Bld) [#/Vol] 7.9 10*3/uL 4.4-11.0 [facility] Work Phone: Blood erythrocytes count (nu mber/volume)on 03-13-2022 RBC (Bld) [#/Vol] 4.75 10*6/uL 4.6-6.2 [facility] Work Phone: Blood hemoglobin measurement (mass/volume)on 03-13-2022 Hemoglobin (Bld) [Mass/Vol] 14.5 g/dL 13.0-16.5 [facility] Work Phone: Blood lymphocytes/100 leukoc yteson 03-13-2022 Lymphocytes/100 WBC (Bld) 30.1 % 19-41 [facility] Work Phone: Blood monocytes/100 leukocyt eson 03-13-2022 Monocytes/100 WBC (Bld) 6.3 % 0-10 [facility] Work Phone: Blood platelet mean volumeon 03-13-2022 Platelet mean volume (Bld) [Entitic vol] 9.4 fL 6.2-12.0 [facility] Work Phone: Determination of erythrocyte mean corpuscular volume (MCV)on 03-13-2022 MCV (RBC) [Entitic vol] 90.3 fL 80-94 [facility] Work Phone: Hematocrit Auto (Bld) [Volum e fraction]on 03-13-2022 Hematocrit (Bld) [Volume fraction] 42.9 % 40-54 [facility] Work Phone: Laboratory - Chemistry and C hemistry - challengeon 03-13-2022 CO2 [Moles/Vol] 28.0 mmol/L 21.0-32.0 [facility] Work Phone: Urea nitrogen/Creatinine [Mass ratio] 25.5 mg/mg 10-20 [facility] Work Phone: Laboratory - Hematology and Cell countson 03-13-2022 Erythrocyte distribution width (RBC) [Entitic vol] 41.1 fL 35.1-43.9 [facility] Work Phone: Erythrocyte distribution width (RBC) [Ratio] 12.4 % 11.6-14.6 [facility] Work Phone: Immature granulocytes/100 WBC (Bld) 0.300 % 0.0-0.9 [facility] Work Phone: Comment on above: IG% - Immature Granu locytes (promyelocytes, myelocytes and metamyelocytes) > 1% indicates that a LEFT SHIFT is Present. MCH (RBC) [Entitic mass] 30.5 pg 27.0-32.0 [facility] Work Phone: Nucleated RBC/100 WBC (Bld) [Ratio] 0 % 0-5 [facility] Work Phone: MCHC Auto (RBC) [Mass/Vol]on 03-13-2022 MCHC (RBC) [Mass/Vol] 33.8 g/dL 32-36 [facility] Work Phone: No Panel Informationon 03-13 Troponin I High Sensitivity 8 pg/mL 3.0-78.0 [facility] Work Phone: Comment on above: Please Note: New Marah t Units and Gender Specific Reference Ranges. For more information see Policy Stat Procedure [place] High Sensitivity Troponin (TNIH) and attachments. Estimated Creatinine Clearance Calc 81.69 ml/min [facility] Work Phone: Estimated GFR (MDRD) Amer 93 mL/min >60 [facility] Work Phone: Comment on above: GFR Calc Estimated GFR (MDRD) Non-Af Amer 77 mL/min >60 [facility] Work Phone: Comment on above: Non- GFR Calc Platelets bldon 03-13-2022 Platelets (Bld) [#/Vol] 204 10*3/uL 150-450 [facility] Work Phone: Serum or plasma calcium magda urement (mass/volume)on 03-13-2022 Calcium [Mass/Vol] 8.9 mg/dL 8.5-10.1 [facility] Work Phone: Serum or plasma creatinine m easurement (mass/volume)on 03-13-2022 Creatinine [Mass/Vol] 1.02 mg/dL 0.70-1.30 [facility] Work Phone: Comment on above: The validity of the calculated GFR & GFRAA in patients over 70 years has not been determined. Clinical correlation is essential. Serum or plasma urea nitroge n measurement (mass/volume)on 03-13-2022 Urea nitrogen [Mass/Vol] 26 mg/dL 7-18 [facility] Work Phone: Thin prep Papanicolaou smear with manual screeningon 03-13-2022 Thin prep Papanicolaou smear with manual screening 6 5-15 [facility] Work Phone: XR CHEST PA AND LATERALon XR CHEST PA AND LATERAL EXAM: XR CHEST PA AND LATERAL, 10/01/2020 13:52 PM COMPARISON: September 05, 2020 CLINICAL INDICATIONS: s/p cardiac surgery RELEVANT CLINICAL HISTORY: Z98.890:Status post cardiac surgery FINDINGS: (Adequate technique) Implanted Devices: None Lungs: There is diminished aeration in the lingular segment of the left upper lobe. Pleural Spaces: Left apical pleural thickening. No pneumothorax. Mediastinum and Sheridan: Normal Cardiac silhouette and great vessels: Stable contour Unremarkable aorta. Chest Wall: Normal IMPRESSION: Diminished aeration in the lingular segment of the left upper lobe. Normal [facility] CBC,PLATELETSon 09-05-2020 Hematocrit (Bld) [Volume fraction] 30.4 % Low 39.6-48.8 [facility] Comment on above: Performed By: #### L [id number] #### [facility] (DEFAULT) [address] [address] Hemoglobin (Bld) [Mass/Vol] 10.1 g/dL Low 13.4-16.8 [facility] Comment on above: Performed By: #### L [id number] #### [facility] (DEFAULT) [address] [address] MCV (RBC) [Entitic vol] 90.7 fL Normal 79.0-94.5 [facility] Comment on above: Performed By: #### L [id number] #### [facility] (DEFAULT) [address] [address] Mean Cell Hgb 30.1 pg Normal 26.1-33.3 [facility] Comment on above: Performed By: #### L [id number] #### [facility] (DEFAULT) [address] [address] Mean Cell Hgb Conc 33.2 g/dL Normal 31.9-36.5 [facility] Comment on above: Performed By: #### L [id number] #### [facility] (DEFAULT) [address] [address] Platelet mean volume (Bld) [Entitic vol] 9.9 fL Normal 8.7-12.3 [facility] Comment on above: Performed By: #### L [id number] #### [facility] (DEFAULT) [address] [place] [address] Platelets (Bld) [#/Vol] 171 10*3/uL Normal 146-337 [facility] Comment on above: Performed By: #### L [id number] #### [facility] (DEFAULT) [address] [place] [address] RBC (Bld) [#/Vol] 3.35 10*6/uL Low 4.38-5.83 [facility] Comment on above: Performed By: #### L [id number] #### [facility] (DEFAULT) [address] [place] [address] RBC Distribution 12.7 % Normal 10.9-14.3 [facility] Comment on above: Performed By: #### L [id number] #### [facility] (DEFAULT) [address] [place] [address] WBC (Bld) [#/Vol] 9.88 10*3/uL Normal 3.73-10.10 [facility] Comment on above: Performed By: #### L [id number] #### [facility] (DEFAULT) [address] [place] [address] CHEM 7 (LYTES,BUN,CREA,GLUC) on 09-05-2020 Anion gap [Moles/Vol] 10 mmol/L Normal 7-[address] [facility] Comment on above: Performed By: #### L [id number] #### [facility] (DEFAULT) [address] [place] [address] Chloride [Moles/Vol] 106 mmol/L Normal 98-108 [facility] Comment on above: Performed By: #### L [id number] #### [facility] (DEFAULT) [address] [place] [address] CO2 [Moles/Vol] 26 mmol/L Normal 22-30 [facility] Comment on above: Performed By: #### L [id number] #### [facility] (DEFAULT) [address] [address] Creatinine [Mass/Vol] 0.87 mg/dL Normal 0.70-1.[address] [facility] Comment on above: Performed By: #### L [id number] #### [facility] (DEFAULT) [address] [place] [address] EST GFR, >=60 Normal >=60 [facility] Comment on above: Performed By: #### L [id number] #### [facility] (DEFAULT) [address] [address] EST GFR,Non >=60 Normal >=60 [facility] Comment on above: Performed By: #### L [id number] #### [facility] (DEFAULT) [address] [address] Glucose [Mass/Vol] 95 mg/dL Normal 70-99 [facility] Comment on above: Performed By: #### L [id number] #### [facility] (DEFAULT) [address] [address] Osmolality [Osmolality] 291 mosm/kg Normal 278-305 [facility] Comment on above: Performed By: #### L [id number] #### [facility] (DEFAULT) [address] [address] Potassium [Moles/Vol] 4.0 mmol/L Normal 3.5-5.[address] [facility] Comment on above: Performed By: #### L [id number] #### [facility] (DEFAULT) [address] [address] Sodium [Moles/Vol] 138 mmol/L Normal 133-143 [facility] Comment on above: Performed By: #### L [id number] #### [facility] (DEFAULT) [address] [address] Urea nitrogen [Mass/Vol] 19 mg/dL Normal 7-22 [facility] Comment on above: Performed By: #### L [id number] #### [facility] (DEFAULT) [address] [place] [address] Urea nitrogen/Creatinine [Mass ratio] 22 mg/mg Normal [facility] Comment on above: Performed By: #### L [id number] #### [facility] (DEFAULT) [address] [place] [address] MAGNESIUMon 09-05-2020 Magnesium [Mass/Vol] 2.1 mg/dL Normal 1.6-2.6 [facility] Comment on above: Performed By: #### L [id number] #### [facility] (DEFAULT) [address] [place] [address] TYPE AND SCREENon 09-05-2020 ABO/RH(D) TYPE Positive Normal [facility] Comment on above: Performed By: #### X M #### [facility] (DEFAULT) [address] [place] [address] XR CHEST PORTABLEon 09-05-19 XR CHEST PORTABLE EXAM: XR CHEST PORTABLE, 09/05/2020 05:42 AM COMPARISON: September 04, 2020 CLINICAL INDICATIONS: eval PTX-left chest tube removal RELEVANT CLINICAL HISTORY: FINDINGS: (Adequate technique) Left chest tube removed with a residual tiny apical pneumothorax unchanged. Patchy airspace disease in the lingula persists. The right lung remains clear. No pleural effusion. Stable cardiomegaly. IMPRESSION: Left chest tube removed with stable tiny apical pneumothorax. Stable airspace disease in the lingula. Normal [facility] CBC,PLATELETSon 09-04-2020 Hematocrit (Bld) [Volume fraction] 30.0 % Low 39.6-48.8 [facility] Comment on above: Performed By: #### L [id number] #### [facility] (DEFAULT) [address] [place] [address] Hemoglobin (Bld) [Mass/Vol] 9.9 g/dL Low 13.4-16.8 [facility] Comment on above: Performed By: #### L [id number] #### [facility] (DEFAULT) [address] [place] [address] MCV (RBC) [Entitic vol] 90.1 fL Normal 79.0-94.5 [facility] Comment on above: Performed By: #### L [id number] #### [facility] (DEFAULT) [address] [address] Mean Cell Hgb 29.7 pg Normal 26.1-33.3 [facility] Comment on above: Performed By: #### L [id number] #### [facility] (DEFAULT) [address] [address] Mean Cell Hgb Conc 33.0 g/dL Normal 31.9-36.5 [facility] Comment on above: Performed By: #### L [id number] #### [facility] (DEFAULT) [address] [address] Platelet mean volume (Bld) [Entitic vol] 10.1 fL Normal 8.7-12.3 [facility] Comment on above: Performed By: #### L [id number] #### [facility] (DEFAULT) [address] [address] Platelets (Bld) [#/Vol] 138 10*3/uL Low 146-337 [facility] Comment on above: Performed By: #### L [id number] #### [facility] (DEFAULT) [address] [address] RBC (Bld) [#/Vol] 3.33 10*6/uL Low 4.38-5.83 [facility] Comment on above: Performed By: #### L [id number] #### [facility] (DEFAULT) [address] [address] RBC Distribution 12.6 % Normal 10.9-14.3 [facility] Comment on above: Performed By: #### L [id number] #### [facility] (DEFAULT) [address] [place] [address] WBC (Bld) [#/Vol] 10.14 10*3/uL High 3.73-10.10 [facility] Comment on above: Performed By: #### L [id number] #### [facility] (DEFAULT) [address] [place] [address] CHEM 7 (LYTES,BUN,CREA,GLUC) on 09-04-2020 Anion gap [Moles/Vol] 9 mmol/L Normal 7-[address] [facility] Comment on above: Performed By: #### L [id number] #### [facility] (DEFAULT) [address] [place] [address] Chloride [Moles/Vol] 106 mmol/L Normal 98-108 [facility] Comment on above: Performed By: #### L [id number] #### [facility] (DEFAULT) [address] [place] [address] CO2 [Moles/Vol] 28 mmol/L Normal 22-30 [facility] Comment on above: Performed By: #### L [id number] #### [facility] (DEFAULT) [address] [place] [address] Creatinine [Mass/Vol] 1.02 mg/dL Normal 0.70-1.[address] [facility] Comment on above: Performed By: #### L [id number] #### [facility] (DEFAULT) [address] [place] [address] EST GFR, >=60 Normal >=60 [facility] Comment on above: Performed By: #### L [id number] #### [facility] (DEFAULT) [address] [place] [address] EST GFR,Non >=60 Normal >=60 [facility] Comment on above: Performed By: #### L [id number] #### [facility] (DEFAULT) [address] [place] [address] Glucose [Mass/Vol] 113 mg/dL High 70-99 [facility] Comment on above: Performed By: #### L [id number] #### [facility] (DEFAULT) [address] [place] [address] Osmolality [Osmolality] 294 mosm/kg Normal 278-305 [facility] Comment on above: Performed By: #### L [id number] #### [facility] (DEFAULT) [address] [place] [address] Potassium [Moles/Vol] 4.1 mmol/L Normal 3.5-5.[address] [facility] Comment on above: Performed By: #### L [id number] #### [facility] (DEFAULT) [address] [place] [address] Sodium [Moles/Vol] 139 mmol/L Normal 133-143 [facility] Comment on above: Performed By: #### L [id number] #### [facility] (DEFAULT) [address] [place] [address] Urea nitrogen [Mass/Vol] 18 mg/dL Normal 7-22 [facility] Comment on above: Performed By: #### L [id number] #### [facility] (DEFAULT) [address] [place] [address] Urea nitrogen/Creatinine [Mass ratio] 18 mg/mg Normal [facility] Comment on above: Performed By: #### L [id number] #### [facility] (DEFAULT) [address] [place] [address] MAGNESIUMon 09-04-2020 Magnesium [Mass/Vol] 1.9 mg/dL Normal 1.6-2.6 [facility] Comment on above: Performed By: #### L [id number] #### [facility] (DEFAULT) [address] [place] [address] XR CHEST PORTABLEon 09-04-19 XR CHEST PORTABLE EXAM: XR CHEST PORTABLE, 09/04/2020 13:25 PM COMPARISON: September 04, 2020 CLINICAL INDICATIONS: s/p pleural chest tube removal RELEVANT CLINICAL HISTORY: FINDINGS: (Adequate technique) Life Support Devices: Left-sided chest tube remains at the lateral aspect of the left midlung. 2 additional left-sided chest tubes have been removed. Chest Wall: Normal Sheridan: Normal Mediastinum: Normal Pleural Spaces: No definite pleural effusion. Trace residual left-sided pneumothorax is stable in size with pleural separation measuring about 3 mm, unchanged. Lungs: Stable patchy atelectasis in the lower left lung. Cardiac Silhouette: Normal, without overall or specific chamber enlargement, or abnormal calcification Thoracic Aorta: Normal Pulmonary Vessels: Normal, without PVH IMPRESSION: Stable size of trace residual left-sided pneumothorax status post removal of 2 left-sided chest tubes. Normal [facility] XR CHEST PORTABLE EXAM: XR CHEST PORTABLE, 09/04/2020 05:04 AM COMPARISON: September 03, 2020. CLINICAL INDICATIONS: POD 3, chest tubes remain RELEVANT CLINICAL HISTORY: FINDINGS: (Adequate technique) Life Support Devices: Left-sided chest tubes are stable in position. Right IJ sheath removed. Chest Wall: Normal Sheridan: Normal Mediastinum: Normal Pleural Spaces: No definite pleural effusion. Trace left apical pneumothorax with pleural separation measuring about 3 mm compared to 5 mm previously. Lungs: Patchy atelectatic changes are again seen in the lower left lung. Cardiac Silhouette: Normal, without overall or specific chamber enlargement, or abnormal calcification Thoracic Aorta: Normal Pulmonary Vessels: Normal, without PVH IMPRESSION: Trace residual left pneumothorax is slightly decreased in size compared to prior. Normal [facility] CBC,PLATELETSon 09-03-2020 Hematocrit (Bld) [Volume fraction] 30.3 % Low 39.6-48.8 [facility] Comment on above: Performed By: #### H [facility] ####[facility] (DEFAULT)[address] [place] [address] Hemoglobin (Bld) [Mass/Vol] 10.2 g/dL Low 13.4-16.8 [facility] Comment on above: Performed By: #### H [facility] ####[facility] (DEFAULT)[address] [place] [address] MCV (RBC) [Entitic vol] 89.6 fL Normal 79.0-94.5 [facility] Comment on above: Performed By: #### H EMOGC ####[facility] (DEFAULT)[address] [facility] [place] [address] Mean Cell Hgb 30.2 pg Normal 26.1-33.3 [facility] Comment on above: Performed By: #### H EMOGC ####[facility] (DEFAULT)[address] [place] [address] Mean Cell Hgb Conc 33.7 g/dL Normal 31.9-36.5 [facility] Comment on above: Performed By: #### H EMOGC ####[facility] (DEFAULT)[address] [facility] [place] [address] Platelet mean volume (Bld) [Entitic vol] 10.0 fL Normal 8.7-12.3 [facility] Comment on above: Performed By: #### H EMOGC ####[facility] (DEFAULT)[address] [facility] [place] [address] Platelets (Bld) [#/Vol] 143 10*3/uL Low 146-337 [facility] Comment on above: Performed By: #### H EMOGC ####[facility] (DEFAULT)[address] [place] [address] RBC (Bld) [#/Vol] 3.38 10*6/uL Low 4.38-5.83 [facility] Comment on above: Performed By: #### H EMOGC ####[facility] (DEFAULT)[address] [facility] [place] [address] RBC Distribution 12.8 % Normal 10.9-14.3 [facility] Comment on above: Performed By: #### H EMOGC ####[facility] (DEFAULT)[address] [facility] [place] [address] WBC (Bld) [#/Vol] 13.08 10*3/uL High 3.73-10.10 [facility] Comment on above: Performed By: #### H EMO ####[facility] (DEFAULT)[address] [facility] [place] [address] CHEM 7 (LYTES,BUN,CREA,GLUC) on 09-03-2020 Anion gap [Moles/Vol] 10 mmol/L Normal 7-[address] [facility] Comment on above: Performed By: #### C HM7, MGO ####[facility] (DEFAULT)[address] [place] [address] Chloride [Moles/Vol] 110 mmol/L High 98-108 [facility] Comment on above: Performed By: #### C HM7, MGO ####[facility] (DEFAULT)[address] [facility] [place] [address] CO2 [Moles/Vol] 24 mmol/L Normal 22-30 [facility] Comment on above: Performed By: #### C HM7, MGO ####[facility] (DEFAULT)[address] [facility] [place] [address] Creatinine [Mass/Vol] 0.74 mg/dL Normal 0.70-1.[address] [facility] Comment on above: Performed By: #### C HM7, MGO ####[facility] (DEFAULT)[address] [facility] [place] [address] EST GFR, >=60 Normal >=60 [facility] Comment on above: Performed By: #### C HM7, MGO ####[facility] (DEFAULT)[address] [facility] [place] [address] EST GFR,Non >=60 Normal >=60 [facility] Comment on above: Performed By: #### C HM7, MGO ####[facility] (DEFAULT)[address] [facility] [place] [address] Glucose [Mass/Vol] 137 mg/dL High 70-99 [facility] Comment on above: Performed By: #### C HM7, MGO ####[facility] (DEFAULT)[address] [place] [address] Osmolality [Osmolality] 296 mosm/kg Normal 278-305 [facility] Comment on above: Performed By: #### C HM7, MGO ####[facility] (DEFAULT)[address] [facility] [place] [address] Potassium [Moles/Vol] 4.6 mmol/L Normal 3.5-5.[address] [facility] Comment on above: Performed By: #### C HM7, MGO ####[facility] (DEFAULT)[address] [facility] [place] [address] Sodium [Moles/Vol] 139 mmol/L Normal 133-143 [facility] Comment on above: Performed By: #### C HM7, MGO ####[facility] (DEFAULT)[address] [facility] [place] [address] Urea nitrogen [Mass/Vol] 16 mg/dL Normal 7-22 [facility] Comment on above: Performed By: #### C HM7, MGO ####[facility] (DEFAULT)[address] [facility] [place] [address] Urea nitrogen/Creatinine [Mass ratio] 22 mg/mg Normal [facility] Comment on above: Performed By: #### C HM7, MGO ####[facility] (DEFAULT)[address] [facility] [place] [address] IONIZED CALCIUM, INPATIENTon 09-03-2020 ICA 4.46 mg/dL Low 4.60-5.30 [facility] Comment on above: Order Comment: 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 Please label ALL specimens as 2019-nCoV rule out and deliver by hand. This test was performed using [employer] and has been approved as Emergency Use Authorization (EUA) for the qualitative detection of SARS-CoV-2 nucleic acid. Performed By: #### L [id number] #### [facility] (DEFAULT) [address] [place] [address] MAGNESIUMon 09-03-2020 Magnesium [Mass/Vol] 2.1 mg/dL Normal 1.6-2.6 [facility] Comment on above: Performed By: #### C HM7, MGO ####[facility] (DEFAULT)[address] [place] [address] PT,INR,PTTon 09-03-2020 aPTT Coag (Bld) [Time] 33.6 s Normal 24.0-34.3 [facility] Comment on above: Performed By: #### P TPTT ####[facility] (DEFAULT)[address] [place] [address], [place] [address] INR Coag (PPP) [Relative time] 1.4 {INR} High 0.9-1.1 [facility] Comment on above: Performed By: #### P TPTT ####[facility] (DEFAULT)[address] [place] [address], [place] [address] PT Coag (PPP) [Time] 17.3 s High 11.9-14.2 [facility] Comment on above: Performed By: #### P TPTT ####[facility] (DEFAULT)[address] [place] [address] XR CHEST PORTABLEon 09-03-19 XR CHEST PORTABLE EXAM: XR CHEST PORTABLE, 09/03/2020 05:59 AM COMPARISON: September 02, 2020 CLINICAL INDICATIONS: post op heart surgery RELEVANT CLINICAL HISTORY: FINDINGS: (Adequate technique) Stabilized tubes, no pneumothorax. Mild atelectasis persists in the right base. Stable airspace disease in the left base. There is a right apical pneumothorax measuring 5 mm. No definite pleural effusion. Stable cardiac and mediastinal silhouettes. Bony structures are intact. IMPRESSION: New left apical 5 mm pneumothorax. Stable airspace disease in the lower left lung. Normal [facility] CBC,PLATELETSon 09-02-2020 Hematocrit (Bld) [Volume fraction] 31.7 % Low 39.6-48.8 [facility] Comment on above: Performed By: #### H EMOGC ####[facility] (DEFAULT)[address] [facility] [place] [address] Hemoglobin (Bld) [Mass/Vol] 10.9 g/dL Low 13.4-16.8 [facility] Comment on above: Performed By: #### H EMOGC ####[facility] (DEFAULT)[address] [facility] [place] [address] MCV (RBC) [Entitic vol] 88.3 fL Normal 79.0-94.5 [facility] Comment on above: Performed By: #### H EMOGC ####[facility] (DEFAULT)[address] [facility] [place] [address] Mean Cell Hgb 30.4 pg Normal 26.1-33.3 [facility] Comment on above: Performed By: #### H EMOGC ####[facility] (DEFAULT)[address] [facility] [place] [address] Mean Cell Hgb Conc 34.4 g/dL Normal 31.9-36.5 [facility] Comment on above: Performed By: #### H EMOGC ####[facility] (DEFAULT)[address] [facility] [place] [address] Platelet mean volume (Bld) [Entitic vol] 9.6 fL Normal 8.7-12.3 [facility] Comment on above: Performed By: #### H EMOGC ####[facility] (DEFAULT)[address] [facility] [place] [address] Platelets (Bld) [#/Vol] 151 10*3/uL Normal 146-337 [facility] Comment on above: Performed By: #### H EMO ####[facility] (DEFAULT)[address] [place] [address] RBC (Bld) [#/Vol] 3.59 10*6/uL Low 4.38-5.83 [facility] Comment on above: Performed By: #### H EMO ####[facility] (DEFAULT)[address] [place] [address] RBC Distribution 12.6 % Normal 10.9-14.3 [facility] Comment on above: Performed By: #### H EMO ####[facility] (DEFAULT)[address] [place] [address] WBC (Bld) [#/Vol] 12.83 10*3/uL High 3.73-10.10 [facility] Comment on above: Performed By: #### H EMO ####[facility] (DEFAULT)[address] [place] [address] CHEM 7 (LYTES,BUN,CREA,GLUC) on 09-02-2020 Anion gap [Moles/Vol] 11 mmol/L Normal 7-[address] [facility] Comment on above: Performed By: #### X M #### [facility] (DEFAULT) [address] [place] [address] Chloride [Moles/Vol] 110 mmol/L High 98-108 [facility] Comment on above: Performed By: #### X M #### [facility] (DEFAULT) [address] [place] [address] CO2 [Moles/Vol] 24 mmol/L Normal 22-30 [facility] Comment on above: Performed By: #### X M #### [facility] (DEFAULT) [address] [place] [address] Creatinine [Mass/Vol] 0.81 mg/dL Normal 0.70-1.[address] [facility] Comment on above: Performed By: #### X M #### [facility] (DEFAULT) [address] [place] [address] EST GFR, >=60 Normal >=60 [facility] Comment on above: Performed By: #### X M #### [facility] (DEFAULT) [address] [place] [address] EST GFR,Non >=60 Normal >=60 [facility] Comment on above: Performed By: #### X M #### [facility] (DEFAULT) [address] [place] [address] Glucose [Mass/Vol] 128 mg/dL High 70-99 [facility] Comment on above: Performed By: #### X M #### [facility] (DEFAULT) [address] [place] [address] Osmolality [Osmolality] 298 mosm/kg Normal 278-305 [facility] Comment on above: Performed By: #### X M #### [facility] (DEFAULT) [address] [place] [address] Potassium [Moles/Vol] 5.0 mmol/L Normal 3.5-5.0 [facility] Comment on above: Performed By: #### X M #### [facility] (DEFAULT) [address] [place] [address] Sodium [Moles/Vol] 140 mmol/L Normal 133-143 [facility] Comment on above: Performed By: #### X M #### [facility] (DEFAULT) [address] [place] [address] Urea nitrogen [Mass/Vol] 18 mg/dL Normal 7-22 [facility] Comment on above: Performed By: #### X M #### [facility] (DEFAULT) [address] [place] [address] Urea nitrogen/Creatinine [Mass ratio] 22 mg/mg Normal [facility] Comment on above: Performed By: #### X M #### [facility] (DEFAULT) [address] [place] [address] HEMOGLOBIN & HEMATOCRITon Hematocrit (Bld) [Volume fraction] 32.5 % Low 39.6-48.8 [facility] Comment on above: Order Comment: If ch est tube output greater than 200 mL/hour for 2 consecutive hours (send coags simultaneously) Performed By: #### H H ####[facility] (DEFAULT)[address] [place] [address] Hemoglobin (Bld) [Mass/Vol] 11.0 g/dL Low 13.4-16.8 [facility] Comment on above: Order Comment: If ch est tube output greater than 200 mL/hour for 2 consecutive hours (send coags simultaneously) Performed By: #### H H ####[facility] (DEFAULT)[address] [place] [address] Hematocrit (Bld) [Volume fraction] 33.2 % Low 39.6-48.8 [facility] Comment on above: Order Comment: As di ctated by lab values and replacement therapy Performed By: #### X M #### [facility] (DEFAULT) [address] [address] Hemoglobin (Bld) [Mass/Vol] 11.0 g/dL Low 13.4-16.8 [facility] Comment on above: Order Comment: As di ctated by lab values and replacement therapy Performed By: #### X M #### [facility] (DEFAULT) [address] [address] IONIZED CALCIUM, INPATIENTon 09-02-2020 ICA 4.63 mg/dL Normal 4.60-5.30 [facility] Comment on above: Order Comment: Pleas e draw daily with QA chemistry lab while patient is ICU status.Obtain if patient has new onset of atrial fibrillation with a Heart Rate greater than 110, and as dictated by patient serum electrolyte values and replacement therapy. Performed By: #### I CA ####[facility] (DEFAULT)[address] [place] [address] MAGNESIUMon 09-02-2020 Magnesium [Mass/Vol] 3.0 mg/dL High 1.6-2.6 [facility] Comment on above: Order Comment: Draw lab 8 hours after arrival Performed By: #### X M #### [facility] (DEFAULT) [address] [place] [address] Magnesium [Mass/Vol] 2.0 mg/dL Normal 1.6-2.6 [facility] Comment on above: Performed By: #### X M #### [facility] (DEFAULT) [address] [place] [address] PT,INR,PTTon 09-02-2020 aPTT Coag (Bld) [Time] 30.0 s Normal 24.0-34.3 [facility] Comment on above: Performed By: #### P TPTT ####[facility] (DEFAULT)[address] [place] [address] INR Coag (PPP) [Relative time] 1.4 {INR} High 0.9-1.1 [facility] Comment on above: Performed By: #### P TPTT ####[facility] (DEFAULT)[address] [place] [address], [place] [address] PT Coag (PPP) [Time] 16.7 s High 11.9-14.2 [facility] Comment on above: Performed By: #### P TPTT ####[facility] (DEFAULT)[address] [place] [address] XR CHEST PORTABLEon 09-02-19 XR CHEST PORTABLE EXAM: XR CHEST PORTABLE, 09/02/2020 05:54 AM COMPARISON: September 01, 2020 CLINICAL INDICATIONS: post op CABG RELEVANT CLINICAL HISTORY: FINDINGS: (Adequate technique) Support devices are in similar position to the prior. Increased patchy opacities in the left mid and lower lung. Right lung is clear. Mild subcutaneous emphysema in the left chest wall. Stable cardiomediastinal silhouette. No interval bone findings. IMPRESSION: New patchy opacities in left middle lower lung may be atelectasis versus airspace disease. Normal [facility] ABORH TYPE RECONFIRMATIONon 09-01-2020 ABO/RH(D) TYPE Positive Normal [facility] Comment on above: Performed By: #### T YPEC ####[facility] (DEFAULT)[address] [place], [place] [address], [place] [address] CBC,PLATELETSon 09-01-2020 Hematocrit (Bld) [Volume fraction] 34.7 % Low 39.6-48.8 [facility] Comment on above: Performed By: #### H EMOGC ####[facility] (DEFAULT)[address] [place], [place] [address], [place] [address] Hemoglobin (Bld) [Mass/Vol] 11.4 g/dL Low 13.4-16.8 [facility] Comment on above: Performed By: #### H EMOGC ####[facility] (DEFAULT)[address] [place], [place] [address], [place] [address] MCV (RBC) [Entitic vol] 91.6 fL Normal 79.0-94.5 [facility] Comment on above: Performed By: #### H EMOGC ####[facility] (DEFAULT)[address] [facility] [place] [address] Mean Cell Hgb 30.1 pg Normal 26.1-33.3 [facility] Comment on above: Performed By: #### H EMOGC ####[facility] (DEFAULT)[address] [facility] [place] [address] Mean Cell Hgb Conc 32.9 g/dL Normal 31.9-36.5 [facility] Comment on above: Performed By: #### H EMOGC ####[facility] (DEFAULT)[address] [facility] [place] [address] Platelet mean volume (Bld) [Entitic vol] 9.5 fL Normal 8.7-12.3 [facility] Comment on above: Performed By: #### H EMO ####[facility] (DEFAULT)[address] [place] [address] Platelets (Bld) [#/Vol] 184 10*3/uL Normal 146-337 [facility] Comment on above: Performed By: #### H EMO ####[facility] (DEFAULT)[address] [place] [address] RBC (Bld) [#/Vol] 3.79 10*6/uL Low 4.38-5.83 [facility] Comment on above: Performed By: #### H EMO ####[facility] (DEFAULT)[address] [place] [address] RBC Distribution 12.3 % Normal 10.9-14.3 [facility] Comment on above: Performed By: #### H EMO ####[facility] (DEFAULT)[address] [place] [address] WBC (Bld) [#/Vol] 17.94 10*3/uL High 3.73-10.10 [facility] Comment on above: Performed By: #### H EMO ####[facility] (DEFAULT)[address] [place] [address] CHEM 7 (LYTES,BUN,CREA,GLUC) on 09-01-2020 Anion gap [Moles/Vol] 15 mmol/L Normal 7-[address] [facility] Comment on above: Performed By: #### X M #### [facility] (DEFAULT) [address] [place] [address] Chloride [Moles/Vol] 111 mmol/L High 98-108 [facility] Comment on above: Performed By: #### X M #### [facility] (DEFAULT) [address] [place] [address] CO2 [Moles/Vol] 22 mmol/L Normal 22-30 [facility] Comment on above: Performed By: #### X M #### [facility] (DEFAULT) [address] [place] [address]65 Creatinine [Mass/Vol] 0.81 mg/dL Normal 0.70-1.[address] [facility] Comment on above: Performed By: #### X M #### [facility] (DEFAULT) [address] [place] [address] EST GFR, >=60 Normal >=60 [facility] Comment on above: Performed By: #### X M #### [facility] (DEFAULT) [address] [place] [address] EST GFR,Non >=60 Normal >=60 [facility] Comment on above: Performed By: #### X M #### [facility] (DEFAULT) [address] [place] [address] Glucose [Mass/Vol] 200 mg/dL High 70-99 [facility] Comment on above: Performed By: #### X M #### [facility] (DEFAULT) [address] [place] [address] Osmolality [Osmolality] 308 mosm/kg High 278-305 [facility] Comment on above: Performed By: #### X M #### [facility] (DEFAULT) [address] [place] [address] Potassium [Moles/Vol] 3.5 mmol/L Normal 3.5-5.[address] [facility] Comment on above: Performed By: #### X M #### [facility] (DEFAULT) [address] [place] [address] Sodium [Moles/Vol] 144 mmol/L High 133-143 [facility] Comment on above: Performed By: #### X M #### [facility] (DEFAULT) [address] [place] [address] Urea nitrogen [Mass/Vol] 20 mg/dL Normal 7-22 [facility] Comment on above: Performed By: #### X M #### [facility] (DEFAULT) [address] [place] [address] Urea nitrogen/Creatinine [Mass ratio] 25 mg/mg Normal [facility] Comment on above: Performed By: #### X M #### [facility] (DEFAULT) [address] [place] [address] FIBRINOGEN, CLOTTABLEon 08-17 Fibrinogen-Clottable 192 mg/dL Low 220-410 [facility] Comment on above: Performed By: #### P TPTT, FIB ####[facility] (DEFAULT)[address] [place] [address] IONIZED CALCIUM, INPATIENTon 09-01-2020 ICA 5.06 mg/dL Normal 4.60-5.30 [facility] Comment on above: Performed By: #### I CA ####[facility] (DEFAULT)[address] [place] [address] LACTATE, BLOODon 09-01-2020 Lactate, Blood 1.2 mmol/L Normal 0.5-1.6 [facility] Comment on above: Performed By: #### L [id number] #### [facility] (DEFAULT) [address] [place] [address] MAGNESIUMon 09-01-2020 Magnesium [Mass/Vol] 2.3 mg/dL Normal 1.6-2.6 [facility] Comment on above: Performed By: #### L [id number] #### [facility] (DEFAULT) [address] [place] [address] Magnesium [Mass/Vol] 1.7 mg/dL Normal 1.6-2.6 [facility] Comment on above: Performed By: #### X M #### [facility] (DEFAULT) [address] [place] [address]58 PHOSPHATE, INORGANICon 09-01 Phosphorous 4.4 mg/dL Normal 2.2-4.6 [facility] Comment on above: Performed By: #### X M #### [facility] (DEFAULT) [address] [place] [address] POTASSIUMon 09-01-2020 Potassium [Moles/Vol] 4.9 mmol/L Normal 3.5-5.[address] [facility] Comment on above: Performed By: #### L [id number] #### [facility] (DEFAULT) [address] [place] [address] PT,INR,PTTon 09-01-2020 aPTT Coag (Bld) [Time] 27.9 s Normal 24.0-34.3 [facility] Comment on above: Performed By: #### P TPTT, FIB ####[facility] (DEFAULT)[address] [place] [address], [place] [address] INR Coag (PPP) [Relative time] 1.4 {INR} High 0.9-1.1 [facility] Comment on above: Performed By: #### P TPTT, FIB ####[facility] (DEFAULT)[address] [place] [address] PT Coag (PPP) [Time] 17.3 s High 11.9-14.2 [facility] Comment on above: Performed By: #### P TPTT, FIB ####[facility] (DEFAULT)[address] [place] [address] XR CHEST PORTABLEon 09-01-19 XR CHEST PORTABLE EXAM: XR CHEST PORTABLE, 09/01/2020 14:58 PM COMPARISON: No prior studies available for comparison. CLINICAL INDICATIONS: postop heart surgery RELEVANT CLINICAL HISTORY: On arrival to unit.; FINDINGS: (Adequate technique) Life Support Devices: Right IJ CVC with its tip at upper SVC. Two left chest tubes. Chest Wall: Normal [place]: Normal Mediastinum: Normal Pleural Spaces: No definite pleural effusion. No definite pneumothorax. Lungs: Clear Cardiac Silhouette: Normal, without overall or specific chamber enlargement, or abnormal calcification Thoracic Aorta: Normal Pulmonary Vessels: Normal, without PVH IMPRESSION: No acute cardiopulmonary disease. Normal [facility] CALCIUMon 08-27-2020 Calcium [Mass/Vol] 9.1 mg/dL Normal 8.6-10.5 [facility] Comment on above: Performed By: #### C HM7, CA, HDLT, MGO, HFP, IPB ####[facility] (DEFAULT)[address] [facility] [place] [address] CBC AND ELECTRONIC DIFFon Basophils (Bld) [#/Vol] 0.04 10*3/uL Normal 0.00-0.09 [facility] Comment on above: Performed By: #### L [id number] ####[facility] (DEFAULT)[address] [facility] [place] [address] Basophils/100 WBC (Bld) 0.6 % Normal [facility] Comment on above: Performed By: #### L [id number] ####[facility] (DEFAULT)[address] [facility] [place] [address] DIFF STATUS Electronic Differential Normal [facility] Comment on above: Performed By: #### L [id number] ####[facility] (DEFAULT)[address] [facility] [place] [address] Eosinophils (Bld) [#/Vol] 0.26 10*3/uL Normal 0.00-0.48 [facility] Comment on above: Performed By: #### L [id number] ####[facility] (DEFAULT)[address] [facility] [place] [address] Eosinophils/100 WBC (Bld) 4.0 % Normal [facility] Comment on above: Performed By: #### L [id number] ####[facility] (DEFAULT)[address] [facility] [place] [address] Hematocrit (Bld) [Volume fraction] 44.8 % Normal 39.6-48.8 [facility] Comment on above: Performed By: #### L [id number] ####[facility] (DEFAULT)[address] [facility] [place] [address] Hemoglobin (Bld) [Mass/Vol] 14.5 g/dL Normal 13.4-16.8 [facility] Comment on above: Performed By: #### L [id number] ####[facility] (DEFAULT)[address] [place] [address] Immature Grans % 0.2 % Normal [facility] Comment on above: Performed By: #### L [id number] ####[facility] (DEFAULT)[address] [facility] [place] [address] Immature Grans Absolute <0.04 Normal <=0.08 [facility] Comment on above: Performed By: #### L [id number] ####[facility] (DEFAULT)[address] [facility] [place] [address] Lymphocytes (Bld) [#/Vol] 1.76 10*3/uL Normal 0.83-3.57 [facility] Comment on above: Performed By: #### L [id number] ####[facility] (DEFAULT)[address] [facility] [place] [address] Lymphocytes/100 WBC (Bld) 27.1 % Normal [facility] Comment on above: Performed By: #### L [id number] ####[facility] (DEFAULT)[address] [facility] [place] [address] MCV (RBC) [Entitic vol] 91.4 fL Normal 79.0-94.5 [facility] Comment on above: Performed By: #### L [id number] ####[facility] (DEFAULT)[address] [facility] [place] [address] Mean Cell Hgb 29.6 pg Normal 26.1-33.3 [facility] Comment on above: Performed By: #### L [id number] ####[facility] (DEFAULT)[address] [facility] [place] [address] Mean Cell Hgb Conc 32.4 g/dL Normal 31.9-36.5 [facility] Comment on above: Performed By: #### L [id number] ####[facility] (DEFAULT)[address] [place] [address] Monocytes (Bld) [#/Vol] 0.45 10*3/uL Normal 0.24-0.93 [facility] Comment on above: Performed By: #### L [id number] ####[facility] (DEFAULT)[address] [facility] [place] [address] Monocytes/100 WBC (Bld) 6.9 % Normal [facility] Comment on above: Performed By: #### L [id number] ####[facility] (DEFAULT)[address] [facility] [place] [address] Nucleated RBC 0.0 /100 WBC Normal <=0.2 [facility] Comment on above: Performed By: #### L [id number] ####[facility] (DEFAULT)[address] [facility] [place] [address] Platelet mean volume (Bld) [Entitic vol] 9.8 fL Normal 8.7-12.3 [facility] Comment on above: Performed By: #### L [id number] ####[facility] [facility] (DEFAULT)[address] [facility] [place] [address] Platelets (Bld) [#/Vol] 217 10*3/uL Normal 146-337 [facility] Comment on above: Performed By: #### L [id number] ####[facility] (DEFAULT)[address] [place] [address] RBC (Bld) [#/Vol] 4.90 10*6/uL Normal 4.38-5.83 [facility] Comment on above: Performed By: #### L [id number] ####[facility] (DEFAULT)[address] [facility] [place] [address] RBC Distribution 12.5 % Normal 10.9-14.3 [facility] Comment on above: Performed By: #### L [id number] ####[facility] (DEFAULT)[address] [facility] [place] [address] Segs + Bands Auto 61.2 % Normal [facility] Comment on above: Performed By: #### L [id number] ####[facility] (DEFAULT)[address] [place] [address] Segs + Bands,Absolute Auto 3.98 K/uL Normal 1.57-6.19 [facility] Comment on above: Performed By: #### L [id number] ####[facility] (DEFAULT)[address] [place] [address] WBC (Bld) [#/Vol] 6.50 10*3/uL Normal 3.73-10.10 [facility] Comment on above: Performed By: #### L [id number] ####[facility] (DEFAULT)[address] [place] [address] CHEM 7 (LYTES,BUN,CREA,GLUC) on 08-27-2020 Anion gap [Moles/Vol] 10 mmol/L Normal 7-[address] [facility] Comment on above: Performed By: #### C HM7, CA, HDLT, MGO, HFP, IPB ####[facility] (DEFAULT)[address] [place] [address] Chloride [Moles/Vol] 109 mmol/L High 98-108 [facility] Comment on above: Performed By: #### C HM7, CA, HDLT, MGO, HFP, IPB ####[facility] (DEFAULT)[address] [place] [address] CO2 [Moles/Vol] 27 mmol/L Normal 22-30 [facility] Comment on above: Performed By: #### C HM7, CA, HDLT, MGO, HFP, IPB ####[facility] (DEFAULT)[address] [facility] [place] [address] Creatinine [Mass/Vol] 0.91 mg/dL Normal 0.70-1.[address] [facility] Comment on above: Performed By: #### C HM7, CA, HDLT, MGO, HFP, IPB ####[facility] (DEFAULT)[address] [place] [address] EST GFR, >=60 Normal >=60 [facility] Comment on above: Performed By: #### C HM7, CA, HDLT, MGO, HFP, IPB ####[facility] (DEFAULT)[address] [facility] [place] [address] EST GFR,Non >=60 Normal >=60 [facility] Comment on above: Performed By: #### C HM7, CA, HDLT, MGO, HFP, IPB ####[facility] (DEFAULT)[address] [place] [address] Glucose [Mass/Vol] 96 mg/dL Normal 70-99 [facility] Comment on above: Performed By: #### C HM7, CA, HDLT, MGO, HFP, IPB ####[facility] (DEFAULT)[address] [facility] [place] [address] Osmolality [Osmolality] 297 mosm/kg Normal 278-305 [facility] Comment on above: Performed By: #### C HM7, CA, HDLT, MGO, HFP, IPB ####[facility] (DEFAULT)[address] [place], [place] [address], [place] [address] Potassium [Moles/Vol] 5.2 mmol/L High 3.5-5.[address] [facility] Comment on above: Performed By: #### C HM7, CA, HDLT, MGO, HFP, IPB ####[facility] (DEFAULT)[address] [facility] [place] [address] Sodium [Moles/Vol] 141 mmol/L Normal 133-143 [facility] Comment on above: Performed By: #### C HM7, CA, HDLT, MGO, HFP, IPB ####[facility] (DEFAULT)[address] [facility] [place] [address] Urea nitrogen [Mass/Vol] 15 mg/dL Normal 7-22 [facility] Comment on above: Performed By: #### C HM7, CA, HDLT, MGO, HFP, IPB ####[facility] (DEFAULT)[address] [facility] [place] [address] Urea nitrogen/Creatinine [Mass ratio] 16 mg/mg Normal [facility] Comment on above: Performed By: #### C HM7, CA, HDLT, MGO, HFP, IPB ####[facility] (DEFAULT)[address] [facility] [place] [address] FIBRINOGEN, CLOTTABLEon 08-17 Fibrinogen-Clottable 295 mg/dL Normal 220-410 [facility] Comment on above: Performed By: #### P TPTT, FIB ####[facility] (DEFAULT)[address] [facility] [place] [address] HEMOGLOBIN A1Con 08-27-2020 Glucose [Mass/Vol] 114 mg/dL Normal [facility] Comment on above: Performed By: #### A 1CB ####[facility] (DEFAULT)[address] [place] [address], [place] [address] HbA1c (Bld) [Mass fraction] 5.6 % Normal 4.7-5.6 [facility] Comment on above: Performed By: #### A 1CB ####[facility] (DEFAULT)[address] [place] [address], [place] [address] HEPATIC FUNCTION PANELon Albumin [Mass/Vol] 4.1 g/dL Normal 3.5-5.0 [facility] Comment on above: Performed By: #### C HM7, CA, HDLT, MGO, HFP, IPB ####[facility] (DEFAULT)[address] [place] [address] ALP [Catalytic activity/Vol] 91 U/L Normal 32-126 [facility] Comment on above: Performed By: #### C HM7, CA, HDLT, MGO, HFP, IPB ####[facility] (DEFAULT)[address] [place] [address] ALT [Catalytic activity/Vol] 45 U/L Normal 10-52 [facility] Comment on above: Performed By: #### C HM7, CA, HDLT, MGO, HFP, IPB ####[facility] (DEFAULT)[address] [place] [address] AST [Catalytic activity/Vol] 28 U/L Normal 14-40 [facility] Comment on above: Performed By: #### C HM7, CA, HDLT, MGO, HFP, IPB ####[facility] (DEFAULT)[address] [place] [address] Bilirubin [Mass/Vol] 0.7 mg/dL Normal <1.5 [facility] Comment on above: Performed By: #### C HM7, CA, HDLT, MGO, HFP, IPB ####[facility] (DEFAULT)[address] [place] [address] Bilirubin.indirect [Mass/Vol] 0.2 mg/dL Normal <0.3 [facility] Comment on above: Performed By: #### C HM7, CA, HDLT, MGO, HFP, IPB ####[facility] (DEFAULT)[address] [place] [address] Protein [Mass/Vol] 6.6 g/dL Normal 6.4-8.3 [facility] Comment on above: Performed By: #### C HM7, CA, HDLT, MGO, HFP, IPB ####[facility] (DEFAULT)[address] [place] [address] LIPID PANEL W CALCULATED LDL on 08-27-2020 Calculated LDL Cholesterol 33 mg/dL Normal 0-99 [facility] Comment on above: Result Comment: [<10 0 mg/dL: Optimal] [100-129 mg/dL: Near Optimal] [130-159 mg/dL: Borderline High] [160-189 mg/dL: High] [>189 mg/dL: Very High] Performed By: #### C HM7, CA, HDLT, MGO, HFP, IPB ####[facility] (DEFAULT)[address] [place] [address] Cholesterol [Mass/Vol] 100 mg/dL Normal <200 [facility] Comment on above: Result Comment: [<20 0 mg/dL: Desirable] [200-239 mg/dL: Borderline High] [>239 mg/dL: High] Performed By: #### C HM7, CA, HDLT, MGO, HFP, IPB ####[facility] (DEFAULT)[address] [place] [address] Cholesterol in HDL [Mass/Vol] 53 mg/dL Normal >=40 [facility] Comment on above: Result Comment: [<40 mg/dL: Low (High Risk)] [>59 mg/dL: High (Low Risk)] Performed By: #### C HM7, CA, HDLT, MGO, HFP, IPB ####[facility] (DEFAULT)[address] [place] [address], [place] [address] Non HDL Cholesterol 47 mg/dL Normal <130 [facility] Comment on above: Performed By: #### C HM7, CA, HDLT, MGO, HFP, IPB ####[facility] (DEFAULT)[address] [place] [address], [place] [address] Total Cholesterol/HDL Ratio 1.9 Normal <4.5 [facility] Comment on above: Performed By: #### C HM7, CA, HDLT, MGO, HFP, IPB ####[facility] (DEFAULT)[address] [place] [address] Triglyceride [Mass/Vol] 68 mg/dL Normal <150 [facility] Comment on above: Result Comment: [<15 0 mg/dL: Desirable] [150-199 mg/dL: Borderline] [200-499 mg/dL: High] [>500 mg/dL: Very High] Performed By: #### C HM7, CA, HDLT, MGO, HFP, IPB ####[facility] (DEFAULT)[address] [place] [address] MAGNESIUMon 08-27-2020 Magnesium [Mass/Vol] 2.1 mg/dL Normal 1.6-2.6 [facility] Comment on above: Performed By: #### C HM7, CA, HDLT, MGO, HFP, IPB ####[facility] (DEFAULT)[address] [place] [address] NOVEL CORONAVIRUS PCRon 08-17 SARS-CoV-2 (COVID-19) RNA NKECHI+probe Ql (Unsp spec) Not detected Normal NOT DETECTED [facility] Comment on above: Order Comment: 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 Please label ALL specimens as 2019-nCoV rule out and deliver by hand. This test was performed using [employer] Mediated Amplification and has been approved as Emergency Use Authorization (EUA) for the qualitative detection of SARS-CoV-2 nucleic acid. Result Comment: Nega tive results do not preclude SARS-CoV-2 infection and should not be used as the sole basis for treatment or other patient management decisions. Optimum specimen types and timing for peak viral levels during infections caused by SARS-CoV-2 has not been determined. The possibility of a false negative result should especially be considered if the patient's recent exposures or clinical presentation suggest that SARS-CoV-2 infection is probable, and diagnostic tests for other causes of illness (e.g., other respiratory illness) are negative. Collection of a new specimen and re-testing may be necessary if the patient is critically ill or clinically deteriorating. Performed By: #### L [id number] #### [facility] (DEFAULT) [address] [place] [address] PHOSPHATE, INORGANICon 08-27 Phosphorous 3.0 mg/dL Normal 2.2-4.6 [facility] Comment on above: Performed By: #### C HM7, CA, HDLT, MGO, HFP, IPB ####[facility] (DEFAULT)[address] [place] [address] PT,INR,PTTon 08-27-2020 aPTT Coag (Bld) [Time] 28.3 s Normal 24.0-34.3 [facility] Comment on above: Performed By: #### P TPTT, FIB ####[facility] (DEFAULT)[address] [place] [address] INR Coag (PPP) [Relative time] 1.1 {INR} Normal 0.9-1.1 [facility] Comment on above: Performed By: #### P TPTT, FIB ####[facility] (DEFAULT)[address] [place] [address] PT Coag (PPP) [Time] 14.0 s Normal 11.9-14.2 [facility] Comment on above: Performed By: #### P TPTT, FIB ####[facility] (DEFAULT)[address] [place] [address] T3 FREEon 08-27-2020 Free T3 [Mass/Vol] 3.7 pg/mL Normal 2.3-4.2 [facility] Comment on above: Performed By: #### X M #### [facility] (DEFAULT) [address] [place] [address] T4 FREEon 08-27-2020 Free T4 [Mass/Vol] 0.96 ng/dL Normal 0.89-1.76 [facility] Comment on above: Performed By: #### X M #### [facility] (DEFAULT) [address] [place] [address] TSHon 08-27-2020 TSH 1.013 uIU/mL Normal 0.550-4.780 [facility] Comment on above: Performed By: #### X M #### [facility] (DEFAULT) [address] [address] TYPE AND SCREEN - PREADMISSI ONon 08-27-2020 ABO/RH(D) TYPE Positive Normal [facility] Comment on above: Performed By: #### X MPO #### [facility] (DEFAULT) [address] [place] [address] CNOVon 07-01-2019 CNOV Office Visit (OTOLMN) CASSANDRAMireyaYUAN ([id number]) 1950 M Date Time Provider Department 07/01/19 3:40 PM MATTEO BELL) OTOLMN During your visit today, we recorded the following information about you: Matteo De Leon MD 07/01/2019 11:08 PM Signed OTOLOGY AND NEUROTOLOGY NEW PATIENT VISIT Date: 07/01/2019 Requested by: Angel Guzman MD PCP: Angel Jacobs MD Chief complaint: Establish Care (follow up with MRI ) History of present illness: Yuan Dasilva Joelemilymireya is a 69 year old male who 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 He was accompanied by his . The tumor was diagnosed in 2007 after work up for left ear hearing loss and vertigo. He was last seen by Dr. Vince Espana on 03/06/14. He had been deaf in the left ear. His right ear hearing had remain good. He did not wish to have CROS/BiCROS hearing aid or bone-anchored hearing implant for his left ear deafness. He had become accustomed to his chronic imbalance and chronic left sided tinnitus. He had not had any more vertigo. ACTIVE PROBLEM LIST Nevus, Non-Neoplastic Benign Neoplasm of Skin of Trunk, Except Scrotum Benign Neoplasm of Scalp and Skin of Neck Other Dyschromia Inflamed Seborrheic Keratosis Actinic Keratosis Left Acoustic Neuroma (Hcc) PAST MEDICAL HISTORY Diagnosis Date - H - PAST MEDICAL HISTORY OF 02/25/2008 Vertigo PAST SURGICAL HISTORY Procedure Laterality Date - COLONOSCOP W/ OR W/O [email or web address] SPEC 02/04/2013 [facility] Colonoscopy - EGD W/O OR W/BRUSH/WASH 02/04/2013 [facility] EGD - PAST SURGICAL HISTORY OF knee surgery Social History Tobacco Use - Smoking status: Never Smoker - Smokeless tobacco: Never Used Substance Use Topics - Alcohol use: Yes Comment: socially - Drug use: Not on file ALLERGIES No Known Allergies Current Outpatient Medications on File Prior to Visit Medication Sig - LORazepam (ATIVAN) 1 mg tablet Take 1 mg by mouth every 6 hours as needed. - lisinopril 10 mg tablet Take 10 mg by mouth once daily. - scopolamine (TRANSDERM-SCOP) 1.5 mg Apply 1 Patch as directed every 72 hours. 1.5 mg 72 hr patch - Apply 1 disc behind the ear at least 4 hours prior to exposure and every 3 days as needed. - multivitamins(DAILY MULTIVITAMIN TAB) Take one(1) tablet daily. - aspirin, enteric coated (ASPIR-LOW) 81 mg ORAL TbEC Take one(1) tablet daily. No current facility-administere d medications on file prior to visit. Review of system: Positive: As above Negative: Fever, shortness of breath Vital signs: There were no vitals taken for this visit. General: Well developed, well nourished, in no apparent distress, with fluent speech Head: Atraumatic, nonsyndromic. Eyes: Equal, round, reactive to light. Extraocular motion intact. Ears: External ears well formed, without lesion, erythema, edema, or tenderness. Otoscopy: AD: Ear canal patent. TM intact. Middle ear aerated. : Ear canal patent. TM intact. Middle ear aerated. Facial nerve: Normal bilaterally. Nose: Dorsum straight. Nostrils clear. Septum midline. Throat: No mucosal or mass lesion Neck: Trachea midline. No adenopathy or thyromegaly. Neurological: Alert and oriented. Cranial nerves lll-Xll normal, except for left ear hearing loss. No spontaneous nystagmus. Normal gait. Psych: Mood euthymic. Affect appropriate. MRI internal auditory canal with and without contrast 06/11/19 compared with 12/19/13: Left cochlear schwannoma with partial filling of vestibule and new extension into the fundus of internal auditory canal measured no more than 3 mm x 3 mm. ASSESSMENT: (D33.3) Left acoustic neuroma (HCC) (primary encounter diagnosis) (H90.42) Sensorineural hearing loss (SNHL) of left ear with unrestricted hearing of right ear (R26.89) Imbalance Since 5 years ago there has been a new extension of the left cochlear schwannoma into the fundus of internal auditory canal, measured no more than 3 mm x 3 mm. I discussed the nature of his condition and options for management with the help of diagrams and imaging studies, including observation with serial imaging, microsurgery, and stereotactic radiation therapy. I discuss the pros and cons of each option with regard to hearing, balance, facial nerve function, duration of recovery, and possible complications. Observation gives the best short term outcome. Surgery can give the best nursing home outcome, but it poses some risks up front. Stereotactic radiation therapy has excellent rate of tumor control with deferred risks. After considering the pros and cons of each option, he chose continued observation, which I concurred as a very reasonable choice because of the known slow growth of cochlear schwannoma, the absence of any imminent threat to the brain, the pre-existing left ear deafness, and the well-compensated vestibular dysfunction. PLAN: Repeat MRI in 3 -5 years to monitor for growth of left cochlear schwannoma. Follow up with me as needed. The patient indicated understanding and agreed with the plan. Office Visit on 07/01/19 - escitalopram oxalate (LEXAPRO) 10 mg tablet My recommendations will be communicated back to the requesting provider by way of shared medical record or letter via fax or [place] mail. Electronically signed by: Matteo Solis MD PhD Otology AND Neurotology 07/01/2019 10:41 PM Coby Zarate 07/01/2019 3:00 PM Signed Tobacco Use: Never Was smoking cessation packet given? N/A - Patient is a non-smoker or quit >1 year ago. Was a referral initiated?N/A Patient is a non-smoker Referring Provider: VINCE ESPANA [[id number]] Allergies As of Date: 07/01/2019 (No Known Allergies) Date Reviewed: 07/01/2019 Reviewed by: Coby Zarate - Fully Assessed Reason for Visit: Establish Care [42] Cmt: follow up with MRI Reason For Visit History Recorded Primary Visit Diagnosis:Left acoustic neuroma (HCC) [D33.3] Other Visit Diagnoses:Sensorineu ral hearing loss (SNHL) of left ear with unrestricted hearing of right ear [H90.42] Imbalance [R26.89] Prescriptions as of 07/01/2019 Sig: ESCITALOPRAM 10 MG TABLET LORAZEPAM 1 MG TABLET Take 1 mg by mouth every 6 ho* LISINOPRIL 10 MG TABLET Take 10 mg by mouth once chava* SCOPOLAMINE 1 MG OVER 3 DAYS * Apply 1 Patch as directed funmi* * DAILY MULTIVITAMIN TABLET Take one(1) tablet daily. * ASPIR-LOW 81 MG TABLET,DELAYE* Take one(1) tablet daily. Problem List As Of Date 07/01/2019 Noted Resolved NEVUS, NON-NEOPLASTIC [I78.1] 04/13/2007 BENIGN [place] SKIN TRUNK [D23.5] 04/13/2007 BENIGN [place] SCALP/SKIN NECK [D23.4] 04/13/2007 DYSCHROMIA OTHER [L81.9] 04/13/2007 SEBORRHEIC KERATOSIS INFLAMED [L82.0] 04/13/2007 ACTINIC KERATOSIS [L57.0] 05/28/2007 Left acoustic neuroma (HCC) [D33.3] 03/06/2014 Visit Notes: >> Coby Zarate [facility] Jul 01, 2019 3:00 PM Status: Signed Tobacco Use: Never Was smoking cessation packet given? N/A - Patient is a non-smoker or quit >1 year ago. Was a referral initiated?N/A Patient is a non-smoker Letter Text Encounter Status:Closed by MATTEO BELL MD on 07/01/19 [facility] PROGRESSon 07-01-2019 PROGRESS HNO ID: [id number] Author: Matteo () Herlinda De Leon Service: ? Author Type: Physician Type: Progress Notes Filed: 07/01/2019 11:08 PM Note Text: OTOLOGY AND NEUROTOLOGY NEW PATIENT VISIT Date: 07/01/2019 Requested by: Angel Guzman MD PCP: Angel Jacobs MD Chief complaint: Establish Care (follow up with MRI ) History of present illness: Yuan Smith is a 69 year old male who 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 He was accompanied by his . The tumor was diagnosed in 2007 after work up for left ear hearing loss and vertigo. He was last seen by Dr. Vince Espana on 03/06/14. He had been deaf in the left ear. His right ear hearing had remain good. He did not wish to have CROS/BiCROS hearing aid or bone-anchored hearing implant for his left ear deafness. He had become accustomed to his chronic imbalance and chronic left sided tinnitus. He had not had any more vertigo. ACTIVE PROBLEM LIST Nevus, Non-Neoplastic Benign Neoplasm of Skin of Trunk, Except Scrotum Benign Neoplasm of Scalp and Skin of Neck Other Dyschromia Inflamed Seborrheic Keratosis Actinic Keratosis Left Acoustic Neuroma (Hcc) PAST MEDICAL HISTORY Diagnosis Date - [facility] - PAST MEDICAL HISTORY OF 02/25/2008 Vertigo PAST SURGICAL HISTORY Procedure Laterality Date - COLONOSCOP W/ OR W/O [facility] SPEC 02/04/2013 [facility] Colonoscopy - EGD W/O OR W/BRUSH/WASH 02/04/2013 [facility] EGD - PAST SURGICAL HISTORY OF knee surgery Social History Tobacco Use - Smoking status: Never Smoker - Smokeless tobacco: Never Used Substance Use Topics - Alcohol use: Yes Comment: socially - Drug use: Not on file ALLERGIES No Known Allergies Current Outpatient Medications on File Prior to Visit Medication Sig - LORazepam (ATIVAN) 1 mg tablet Take 1 mg by mouth every 6 hours as needed. - lisinopril 10 mg tablet Take 10 mg by mouth once daily. - scopolamine (TRANSDERM-SCOP) 1.5 mg Apply 1 Patch as directed every 72 hours. 1.5 mg 72 hr patch - Apply 1 disc behind the ear at least 4 hours prior to exposure and every 3 days as needed. - multivitamins(DAILY MULTIVITAMIN TAB) Take one(1) tablet daily. - aspirin, enteric coated (ASPIR-LOW) 81 mg ORAL TbEC Take one(1) tablet daily. No current facility-administere d medications on file prior to visit. Review of system: Positive: As above Negative: Fever, shortness of breath Vital signs: There were no vitals taken for this visit. General: Well developed, well nourished, in no apparent distress, with fluent speech Head: Atraumatic, nonsyndromic. Eyes: Equal, round, reactive to light. Extraocular motion intact. Ears: External ears well formed, without lesion, erythema, edema, or tenderness. Otoscopy: AD: Ear canal patent. TM intact. Middle ear aerated. : Ear canal patent. TM intact. Middle ear aerated. Facial nerve: Normal bilaterally. Nose: Dorsum straight. Nostrils clear. Septum midline. Throat: No mucosal or mass lesion Neck: Trachea midline. No adenopathy or thyromegaly. Neurological: Alert and oriented. Cranial nerves lll-Xll normal, except for left ear hearing loss. No spontaneous nystagmus. Normal gait. Psych: Mood euthymic. Affect appropriate. MRI internal auditory canal with and without contrast 06/11/19 compared with 12/19/13: Left cochlear schwannoma with partial filling of vestibule and new extension into the fundus of internal auditory canal measured no more than 3 mm x 3 mm. ASSESSMENT: (D33.3) Left acoustic neuroma (HCC) (primary encounter diagnosis) (H90.42) Sensorineural hearing loss (SNHL) of left ear with unrestricted hearing of right ear (R26.89) Imbalance Since 5 years ago there has been a new extension of the left cochlear schwannoma into the fundus of internal auditory canal, measured no more than 3 mm x 3 mm. I discussed the nature of his condition and options for management with the help of diagrams and imaging studies, including observation with serial imaging, microsurgery, and stereotactic radiation therapy. I discuss the pros and cons of each option with regard to hearing, balance, facial nerve function, duration of recovery, and possible complications. Observation gives the best short term outcome. Surgery can give the best oysterman outcome, but it poses some risks up front. Stereotactic radiation therapy has excellent rate of tumor control with deferred risks. After considering the pros and cons of each option, he chose continued observation, which I concurred as a very reasonable choice because of the known slow growth of cochlear schwannoma, the absence of any imminent threat to the brain, the pre-existing left ear deafness, and the well-compensated vestibular dysfunction. PLAN: Repeat MRI in 3 -5 years to monitor for growth of left cochlear schwannoma. Follow up with me as needed. The patient indicated understanding and agreed with the plan. Office Visit on 07/01/19 - escitalopram oxalate (LEXAPRO) 10 mg tablet My recommendations will be communicated back to the requesting provider by way of shared medical record or letter via fax or [place] mail. Electronically signed by: Matteo Solis MD PhD Otology AND Neurotology 07/01/2019 10:41 PM Normal [facility] MR-Brain W/WO Contrast IMPOR Ton 06-11-2019 MR-Brain W/WO Contrast IMPORT Images were obtained outside of [facility] [id number] CN Normal [facility] Office Visiton 12-06-2016 Documentation of current medications (procedure) Done Invalid Interpretation Code [facility] Work Phone: Tobacco smoking status NHIS Former smoker [facility] Work Phone: Tobacco use [facility] Former smoker Invalid Interpretation Code [facility] Work Phone: Vital Signs Date Time Vital Sign Value Performing Clinician Facility 12-26-2024 13:49-0400 Body height 190.[address] Angel Guzman MD Work Phone: [facility] 12-26-2024 13:49-0400 Body mass index (BMI) [Ratio] 25.3 kg/m2 Dr. Angel Guzman MD Work Phone: [facility] 12-26-2024 13:49-0400 Body weight 92.[address] Angel Guzman MD Work Phone: [facility] 12-26-2024 13:49-0400 Diastolic blood pressure 76 mm[Hg] Dr. Angel Guzman MD Work Phone: [facility] 12-26-2024 13:49-0400 Heart rate 65 /min Dr. Angel Guzman MD Work Phone: [facility] 12-26-2024 13:49-0400 Respiratory rate 16 /min Dr. Angel Guzman MD Work Phone: [facility] 12-26-2024 13:49-0400 Systolic blood pressure 129 mm[Hg] Dr. Angel Guzman MD Work Phone: [facility] 06-26-2023 11:25-0500 Body height 190.[address] Angel Guzman Work Phone: [facility] 06-26-2023 11:25-0500 Body mass index (BMI) [Ratio] 25 kg/m2 Dr. Angel Guzman Work Phone: [facility] 06-26-2023 11:25-0500 Body weight 90.[address] Angel Guzman Work Phone: [facility] 06-26-2023 11:25-0500 Diastolic blood pressure 90 mm[Hg] Dr. Angel Guzman Work Phone: [facility] 06-26-2023 11:25-0500 Heart rate 52 /min Dr. Angel Guzman Work Phone: [facility] 06-26-2023 11:25-0500 Respiratory rate 18 /min Dr. Angel Guzman Work Phone: [facility] 06-26-2023 11:25-0500 SaO2% (BldA) [Mass fraction] 100 % Dr. Angel Guzman Work Phone: [facility] 06-26-2023 11:25-0500 Systolic blood pressure 133 mm[Hg] Dr. Angel Guzman Work Phone: [facility] 03-16-2023 13:13-0400 Body height 190.[address] Angel Guzman Work Phone: [facility] 03-16-2023 13:13-0400 Body mass index (BMI) [Ratio] 24.6 kg/m2 Dr. Angel Guzman Work Phone: [facility] 03-16-2023 13:13-0400 Body weight 89.[address] Angel Guzman Work Phone: [facility] 03-16-2023 13:13-0400 Diastolic blood pressure 84 mm[Hg] Dr. Angel Guzman Work Phone: [facility] 03-16-2023 13:13-0400 Heart rate 52 /min Dr. Angel Guzman Work Phone: [facility] 03-16-2023 13:13-0400 Respiratory rate 18 /min Dr. Angel Guzman Work Phone: [facility] 03-16-2023 13:13-0400 SaO2% (BldA) [Mass fraction] 99 % Dr. Angel Guzman Work Phone: [facility] 03-16-2023 13:13-0400 Systolic blood pressure 126 mm[Hg] Dr. Angel Guzman Work Phone: [facility] 12-23-2022 11:32-0400 Body height 190.[address] Angel Guzman Work Phone: [facility] 12-23-2022 11:32-0400 Body mass index (BMI) [Ratio] 24.6 kg/m2 Dr. Angel Guzman Work Phone: [facility] 12-23-2022 11:32-0400 Body weight 89.[address] Angel Guzman Work Phone: [facility] 12-23-2022 11:32-0400 Diastolic blood pressure 81 mm[Hg] Dr. Angel Guzman Work Phone: [facility] 12-23-2022 11:32-0400 Heart rate 52 /min Dr. Angel Guzman Work Phone: [facility] 12-23-2022 11:32-0400 Respiratory rate 18 /min Dr. Angel Guzman Work Phone: [facility] 12-23-2022 11:32-0400 SaO2% (BldA) [Mass fraction] 99 % Dr. Angel Guzman Work Phone: [facility] 12-23-2022 11:32-0400 Systolic blood pressure 127 mm[Hg] Dr. Angel Guzman Work Phone: [facility] 05-18-2022 10:33-0400 Body height 190.[address] Angel Guzman Work Phone: [facility] Work Phone: 05-18-2022 10:33-0400 Body mass index (BMI) [Ratio] 25 kg/m2 Dr. Angel Guzman Work Phone: [facility] Work Phone: 05-18-2022 10:33-0400 Body weight 90.[address] Angel Guzman Work Phone: [facility] Work Phone: 05-18-2022 10:33-0400 Diastolic blood pressure 70 mm[Hg] Dr. Angel Guzman Work Phone: [facility] Work Phone: 05-18-2022 10:33-0400 Heart rate 64 /min Dr. Angel Guzman Work Phone: [facility] Work Phone: 05-18-2022 10:33-0400 Respiratory rate 16 /min Dr. Angel Guzman Work Phone: [facility] Work Phone: 05-18-2022 10:33-0400 Systolic blood pressure 131 mm[Hg] Dr. Angel Guzman Work Phone: [facility] Work Phone: 03-13-2022 05:23-0400 Diastolic blood pressure 73 mm[Hg] Dr. Angel Guzman Work Phone: [facility] Work Phone: 03-13-2022 05:23-0400 Heart rate 50 /min Dr. Angel Guzman Work Phone: [facility] Work Phone: 03-13-2022 05:23-0400 Respiratory rate 18 /min Dr. Angel Guzman Work Phone: [facility] Work Phone: 03-13-2022 05:23-0400 SaO2% (BldA) [Mass fraction] 94 % Dr. Angel Guzman Work Phone: [facility] Work Phone: 03-13-2022 05:23-0400 Systolic blood pressure 126 mm[Hg] Dr. Angel Guzman Work Phone: [facility] Work Phone: 03-13-2022 02:17-0400 Body height 190.[address] Angel Guzman Work Phone: [facility] Work Phone: 03-13-2022 02:17-0400 Body mass index (BMI) [Ratio] 26.1 kg/m2 Dr. Angel Guzman Work Phone: [facility] Work Phone: 03-13-2022 02:17-0400 Body temperature 97.7 [degF] Dr. Angel Guzman Work Phone: [facility] Work Phone: 03-13-2022 02:17-0400 Body weight 94.[address] Angel Guzman Work Phone: [facility] Work Phone: 11-15-2021 10:09-0400 Body mass index (BMI) [Ratio] 25.5 kg/m2 Dr. Angel Guzman Work Phone: [facility] Work Phone: 11-15-2021 10:09-0400 Body temperature 97.4 [degF] Dr. Angel Guzman Work Phone: [facility] Work Phone: 11-15-2021 10:09-0400 Body weight 92.[address] Angel Guzman Work Phone: [facility] Work Phone: 11-15-2021 10:09-0400 Diastolic blood pressure 85 mm[Hg] Dr. Angel Guzman Work Phone: [facility] Work Phone: 11-15-2021 10:09-0400 Heart rate 55 /min Dr. Angel Guzman Work Phone: [facility] Work Phone: 11-15-2021 10:09-0400 Respiratory rate 18 /min Dr. Angel Guzman Work Phone: [facility] Work Phone: 11-15-2021 10:09-0400 SaO2% (BldA) [Mass fraction] 95 % Dr. Angel Guzman Work Phone: [facility] Work Phone: 11-15-2021 10:09-0400 Systolic blood pressure 125 mm[Hg] Dr. Angel Guzman Work Phone: [facility] Work Phone: 08-09-2016 09:53-0500 BMI (Body Mass Index) 24.75 kg/m2 [facility] Work Phone: 08-09-2016 09:53-0500 Body weight 89.81 kg Sandra Ugarte [facility] Work Phone: 08-09-2016 09:53-0500 Height 190.5 cm [facility] Work Phone: 08-09-2016 09:53-0500 Weight 89.81 kg [facility] Work Phone: Encounters Encounter Date Encounter Type Care Provider Facility Start: 12-26-2024 End: 12-26-[address] Santy Mckeon MD -[facility] Work Phone: Start: 12-26-2024 End: 12-26-[address] Angel Guzman MD Work Phone: [facility] Work Phone: Start: 07-03-2024 End: 07-03-2024 ambulatory Angel Guzman Facility:[facility] Start: 05-08-2024 ambulatory Angel Guzman Facilit y:[facility] Start: 04-26-2024 End: 04-26-2024 ambulatory Angel Guzman Facility:[facility] Start: 04-08-2024 End: 04-08-2024 ambulatory Angel Guzman Facility:[facility] Start: 07-31-2023 Non-patient / Non-visit Dr. Sandra Guzman Work Phone: [facility] Start: 07-31-2023 End: 07-31-[address] Angel Guzman Work Phone: [facility] Work Phone: Start: 07-31-2023 End: 07-31-[address] [facility] Work [facility]: Start: 06-26-2023 End: 06-26-[address] Angel Guzman Work Phone: [facility] Work Phone: Start: 06-13-2023 End: 06-13-[address] Angel Guzman Work Phone: [facility] Work Phone: Start: 06-13-2023 End: 06-13-[address] Angel Guzman Work Phone: [facility] Work Phone: Start: 03-16-2023 End: 03-16-[address] Angel Guzman Work Phone: [facility] Work Phone: Start: 02-15-2023 End: 02-15-[address] Angel Guzman Work Phone: [facility] Work Phone: Start: 02-15-2023 End: 02-15-[address] Angel Guzman Work Phone: [facility], [facility] Work Phone: Start: 02-09-2023 End: 02-09-[address] Angel Guzman Work Phone: [facility] Work Phone: Start: 02-09-2023 End: 02-09-[address] Angel Guzman Work Phone: [facility], [facility] Start: 02-03-2023 End: 02-03-[address] [facility] Work Phone: Start: 02-03-2023 End: 02-03-[address] Angel Guzman Work Phone: [facility] Work Phone: Start: 01-19-2023 End: 01-19-[address] Angel Guzman Work Phone: [facility] Work Phone: Start: 01-19-2023 End: 01-19-[address] [facility]: Start: 01-19-2023 End: 01-19-[address] Angel Guzman Work Phone: [facility] Work Phone: Start: 01-11-2023 End: 01-11-[address] Angel Guzman Work Phone: [facility] Work Phone: Start: 01-11-2023 End: 01-11-[address] Angel Guzman Work Phone: [facility] [place] Work Phone: Start: 01-09-2023 End: 01-09-[address] Angel Guzman Work Phone: [facility] Work Phone: Start: 01-09-2023 End: 01-09-[address] Angel Guzman Work Phone: [facility], [facility] Work Phone: Start: 01-08-[address] Angel lees Work Phone: [facility] Work Phone: Start: 12-23-2022 End: 12-23-[address] Angel Guzman Work Phone: [facility] Work Phone: Start: 12-09-2022 End: 12-09-[address] Angel Guzman Work Phone: [facility] Work Phone: Start: 12-09-2022 End: 12-09-[address] Angel Guzman Work Phone: [facility] Work Phone: Start: 05-30-2022 Non-patient / Non-visit Dr. Sandra Guzman Work Phone: [facility] Start: 05-30-2022 End: 05-30-[address] Angel Guzman Work Phone: [facility] Work Phone: Start: 05-30-2022 End: 05-30-[address] Angel Guzman Work Phone: [facility] Start: 05-18-2022 End: 05-18-[address] Angel Guzman Work Phone: [facility] Start: 03-13-2022 End: 03-13-2022 Emergency department patient visit Dr. Angel Guzman Work Phone: [facility]-Emergency Department Start: 11-15-2021 End: 11-15-[address] Angel Guzman Work Phone: [facility] Procedures Date Procedure Procedure Detail Performing Clinician Start: 07-31-2023 Radionuclide imaging of perfusion of myocardium under exercise stress Dr. Angel Guzman Work Phone: Start: 02-15-2023 Ultrasound of scrotu m with Doppler and color flow imaging Dr. Angel Guzman Work Phone: Start: 01-11-2023 X-ray of lumbar spin e, two or three views Dr. Angel Guzman Work Phone: Start: 01-09-2023 US scan of thyroid Dr. Angel Guzman Work Phone: Start: 05-30-2022 Radionuclide imaging of perfusion of myocardium under exercise stress Dr. Angel Guzman Work Phone: Start: 03-13-2022 Plain chest X-ray Dr. Akash Guzman Work Phone: Start: 09-05-2020 Antibody screen Comment on above: Performed By: #### X M #### [facility] (DEFAULT) [address] [address] Start: 08-27-2020 Antibody screen Comment on above: Performed By: #### X MPO #### [facility] (DEFAULT) [address] [place], [place] [id number] Start: 08-17-2020 History of coronary artery bypass grafting History of coronary artery bypass surgery Dr. Angel Guzman Work Phone: Comment on above: CABG x1- DEL CID to LAD @ [facility] Dr. Maxim Braden 09/01/20 Start: 06-16-2020 History of placement of stent for coronary artery disease S/P coronary artery stent placement Dr. Angel Guzman Work Phone: Comment on above: PCI/JACQUELINE to LCX and R CA 06/17/20 Start: 12-06-2016 End: 12-06-2016 Documentation of current medications Sandra Ugarte Plan of Treatment Date Care Activity Detail Author Start: 03-13-2022 [facility] Work Phone: Start: 12-06-2016 End: 12-06-2016 Appointment Appointment [facility] Work Phone: Start: 08-09-2016 End: 08-09-2016 Mri joint upr extrem w/o dye MRI Joint Upper Extremity [facility] Work Phone: Start: 08-09-2016 End: 08-09-2016 X-ray exam of shoulder X-Ray, Shoulder [facility] Work Phone: Patient Education [facility] [place] Work Phone: Patient referral [facility] Work Phone: Payers Date Payer Category Payer Self-pay [id number] 2024 Medicare [id number] 2024 Unknown [id number] 2015 Unknown [employer] [place] [id number] Unknown [employer] [id number] Unknown [id number] Unknown [id number] Unknown [id number] Unknown [id number] Unknown [id number] Social History Date Type Detail Facility Start: 03-13-2022 End: 06-26-2023 Tobacco smoking status OKIS Unknown if ever smoked [facility] Start: 1950 Sex Assigned At Male [facility] Start: 06-26-2023 Tobacco smoking stat us OKIS Never smoked tobacco (finding) [facility] Mental Status Date Assessment Result Facility 03-13-2022 Cognitive function Voice/Name [facility] Work Phone: Evaluation note 08-17-2020 Note Date & Type Note Facility 08-17-2020 Evaluation note Diagnosis Onset Date Benign essential HTN acute Atherosclerotic heart diseas e of [place] coronary artery without angina pectoris chronic History of coronary artery bypass surgery August, chronic PAF (paroxysmal atrial fibrillation) chronic S/P coronary artery stent placement June, [facility] Work Phone: Evaluation note 08-17-2020 Note Date & Type Note Facility 08-17-2020 Evaluation note Diagnosis Onset Date Atherosclerotic heart diseas e of [place] coronary artery without angina pectoris chronic Essential hypertension chron ic History of coronary artery bypass surgery August, chronic PAF (paroxysmal atrial fibrillation) chronic S/P coronary artery stent placement June, chronic Shortness of breath [facility] Work Phone: Evaluation note 08-17-2020 Note Date & Type Note Facility 08-17-2020 Evaluation note Diagnosis Onset Date Essential hypertension chron ic History of coronary artery bypass surgery August, chronic PAF (paroxysmal atrial fibrillation) chronic S/P coronary artery stent placement June, [facility] Work Phone: Evaluation note 08-17-2020 Note Date & Type Note Facility 08-17-2020 Evaluation note Diagnosis Onset Date Essential hypertension chron ic History of coronary artery bypass surgery August, chronic PAF (paroxysmal atrial fibrillation) chronic S/P coronary artery stent placement June, chronic Multiple thyroid nodules chr [facility] Work Phone: Evaluation note 08-17-2020 Note Date & Type Note Facility 08-17-2020 Evaluation note Diagnosis Onset Date Essential hypertension chron ic History of coronary artery bypass surgery August, chronic PAF (paroxysmal atrial fibrillation) chronic S/P coronary artery stent placement June, chronic Multiple thyroid nodules chr [facility] Multiple thyroid nodules [facility] Work Phone: Evaluation note Note Date & Type Note Facility Evaluation note No assessment information availa ble [facility] Work Phone: Reason for referral (narrative) Note Date & Type Note Facility Reason for referral (narrative) No reason for referral information available [facility] Work Phone: Summary Purpose Family History No Family History Records Found Relationship Condition Age at Onset Recorded Date/T ronald Not Specified Cardiac disease Unknown grandfather Malignant neoplasm Unknown Diabetes mellitus Unknown mother Hypertension Unknown Cerebrovascular accident (CVA) Unknown father Malignant neoplasm Unknown grandmother Hypertension Unknown aunt Cerebrovascular accident (CVA) Unknown Advance Directives No Advanced Directives Records Found Advance Directive Response Recorded Date/ Time Advance Directives No June 16, 2020 9:11am Living Will No March 13 2 2:22am Power of Possum Trapper No March 13 2 022 2:22am Advance Directive Response Recorded Date/ Time Advance Directives No June 16, 2020 8:11am Living Will No March 13 2 1:22am Power of Possum Trapper No March 13 2 022 1:22am Advance Directive Response Recorded Date/ Time Advance Directives No June 16, 2020 9:11am Chief Complaint and Reason for Visit Chief Complaint 6 M FU cp Reason for Visit Benign essential HTN 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 PAF (paroxysmal atrial fibrillation) S/P coronary artery stent placement Chief Complaint cp 6 M FU SOB Shortness of breath Reason for Visit Atherosclerotic hear t disease of [place] coronary artery without angina pectoris Essential hypertension History of coronary artery bypass surgery PAF (paroxysmal atrial fibrillation) S/P coronary artery stent placement Shortness of breath Chief Complaint Shortness of breath AFIB PER MMM PAF NODULES EORDER Reason for Visit Essential hypertensi on History of coronary artery bypass surgery PAF (paroxysmal atrial fibrillation) S/P coronary artery stent placement Chief Complaint Shortness of breath AFIB PER MMM PAF NODULES EORDER Routine office follow-up INT LABS Reason for Visit Essential hypertensi on History of coronary artery bypass surgery PAF (paroxysmal atrial fibrillation) S/P coronary artery stent placement Multiple thyroid nodules Chief Complaint Shortness of breath AFIB PER MMM PAF NODULES EORDER Routine office follow-up INT LABS THYROID BIOPSY LEFT THYROID FINE NEEDLE ASPIRATION Reason for Visit Essential hypertensi on History of coronary artery bypass surgery PAF (paroxysmal atrial fibrillation) S/P coronary artery stent placement Multiple thyroid nodules Multiple thyroid nodules Chief Complaint Shortness of breath AFIB PER MMM PAF NODULES EORDER Routine office follow-up INT LABS THYROID BIOPSY LEFT THYROID FINE NEEDLE ASPIRATION HYDROCELE Reason for Visit Essential hypertensi on History of coronary artery bypass surgery PAF (paroxysmal atrial fibrillation) S/P coronary artery stent placement Multiple thyroid nodules Multiple thyroid nodules Chief Complaint 1 Y FU EORDER Reason for Visit Essential hypertensi on History of coronary artery bypass surgery PAF (paroxysmal atrial fibrillation) S/P coronary artery stent placement Chief Complaint EORDER 6 M FU Sob Sob Reason for Visit Essential hypertensi on History of coronary artery bypass surgery PAF (paroxysmal atrial fibrillation) S/P coronary artery stent placement Chief Complaint Admit Date 9 M FU/AFIB December 26, 2024 1:47 pm Additional Source Comments (unrecognized sect ion and content) No Status Records FoundNo Status Records FoundNo Status Records Found INFORMATION SOURCE (unrecogn ized section and content) DATE CREATED AUTHOR 07/05/2019 [facility] DATE CREATED AUTHOR AUTHOR'S ORGANIZ ATION 08/15/2021 [facility] DATE CREATED AUTHOR AUTHOR'S ORGANIZ ATION 12/28/2024 [facility] Goals (unrecognized section and content) Goals may be documented in a n alternate sectionGoals may be documented in an alternate sectionGoals may be documented in an alternate sectionGoals may be documented in an alternate sectionGoals may be documented in an alternate sectionGoals may be documented in an alternate sectionGoals may be documented in an alternate sectionGoals may be documented in an alternate sectionGoals may be documented in an alternate sectionGoals may be documented in an alternate sectionGoals may be documented in an alternate section Care Teams (unrecognized sec tion and content) Team Status: Active Member Role Status Dates Dr. Angel Guzman MD Family Provider Active Dr. Angel Guzman MD Primary Care Provider Active Team Status: Inactive Member Role Status Dates Dr. Angel Guzman MD Primary Care Provider, Referr ing Provider Active Patricia Watt Attending Provider Active Team Status: Inactive Member Role Status Dates Dr. Angel Guzman MD Primary Care Provider, Referr ing Provider Active Patricia Núñez PA, PA Attending Provider Active Team Status: Active Member Role Status Dates Dr. Angel Guzman MD Primary Care Provider Active Patricia DONALDSON, PA Attending Provider Active Team Status: Inactive Member Role Status Dates Dr. Angel Guzman MD Primary Care Provider Active Dr. Raul Yan MD Attending Provider, Referring Provider Active Team Status: Active Member Role Status Dates Dr. Angel Guzman MD Primary Care Provider Active Patricia Núñez PA, PA Attending Provider, Referr ing Provider Active Team Status: Active Member Role Status Dates Dr. Angel Guzman MD Primary Care Pr ovider, Attending Provider, Referring Provider Active Team Status: Inactive Member Role Status Dates Dr. Angel Guzman MD Primary Care Provider Active Patricia Núñez PA, PA Attending Provider Active Team Status: Inactive Member Role Status Dates Dr. Angel Guzman MD Primary Care Pr ovider, Attending Provider, Referring Provider Active Team Status: Inactive Member Role Status Dates Dr. Angel Guzman MD Primary Care Provider Active Tamie Mcleod [employer] Attending Provider, Referring P gómez Active Team Status: Inactive Member Role Status Dates Dr. Angel Guzman MD Primary Care Provider, Referr ing Provider Active Dr. Raul Yan MD Attending Provider Active Team Status: Inactive Member Role Status Dates Dr. Angel Guzman MD Primary Care Provider, Attend ing Provider Active Team Status: Active Member Role Status Dates Dr. Angel Guzman MD Primary Care Provider Active MENDOZA Schreiber Referring Provider, Other Provider Active Dr. Hector Tomlin MD Attending Provider Active Team Status: Inactive Member Role Status Dates Dr. Angel Guzman MD Primary Care Provider Active MENDOZA Schreiber Attending Provider, Referr ing Provider Active Team Status: Inactive Member Role Status Dates Dr. Angel Guzman MD Primary Care Provider Active Start: December 26, 2024 End: December 26, 2024 Dr. Angel Guzman MD Referring Provider Active Start: December 26, 2024 End: December 26, 2024 Dr. Santy Mckeon MD Attending Provider Active Start: December 26, 2024 End: December 26, 2024 FOR RECORDS PERTAINING TO PATIENTS WHO ARE [...] BE BASED ON THE PRIMARY CLINICAL RECORDS. [employer] [facility]. provides no warranty or guarantee of the accuracy or completeness of information in this document.
== END | disposition home or self-care (01) ==
LOC: MFPLAB 14:06
PROVIDERS: PCP Family Medicine; Visit Provider Family Medicine
DX: I25.10 Atherosclerotic heart disease of native coronary artery without angina pectoris (principal); I48.91 Unspecified atrial fibrillation
CPT/HCPCS: 36415; 80053; 80061; 83735; 85025

== ENCOUNTER → 2025-06-26 | Outpatient (CLI) | payer MEDICARE, OTHER, SELFPAY ==
--- NOTE | 2025-06-26 17:24 | CT_ITS ---
PROCEDURE: ABDOMEN WITH IV CONTRAST 06/26/2025 REASON FOR EXAM: RIGHT SPIGELIAN HERNIA, IV CONTRAST TECHNIQUE: Procedure Code: CTABDW Modality: CT Procedure: ABDOMEN WITH IV CONTRAST Multiplanar Sagittal and Coronal images were obtained. One or more dose reduction techniques were used (e.g., Automated exposure control, adjustment of the mA and/or kV according to patient size, use of iterative reconstruction technique. CONTRAST: Isovue-300 VOLUME: 100 mL RADIATION DOSE SUMMARY: CTDlvol: 12.8 mGy DLP: 622.75 mGycm COMPARISON: None FINDINGS: Lung bases: Lung bases are clear. Coronary artery calcification. Liver: Diffuse fatty infiltration. Gallbladder: The gallbladder is contracted. Spleen: Normal size. Pancreas: Normal size without evidence of mass surrounding inflammation or ductal dilation. Adrenals: Unremarkable Kidneys: Small left parapelvic cysts. Nonobstructive 4 mm calculus in the lower pole calyx of the left kidney. Bowel: Sigmoid diverticulosis. Lymph nodes: No suspicious lymph node is seen. Vasculature: Atherosclerotic plaque formation. Peritoneum / Retroperitoneum: No evidence of right spigelian hernia. Small umbilical hernia containing fat. Bones: Degenerative changes of the spine. CT/Abdomen WITH IV Contrast IMPRESSION: Fatty infiltration of the liver. Left parapelvic renal cysts. Nonobstructive left intrarenal calculus. No evidence of spigelian hernia. Reading Location: [place] [id number]
--- OUTSIDE RECORDS SUMMARY | 2025-06-26 18:24 | XMS RPT_ITS | CCD ---
Author Organization [facility] Care Team Providers Care Steward/[employer]ward[employer] Name Role Phone Shanel Sandra Coelho Unavailable Serena Denise Unavailable Sandra Ugarte Unavailable Dr. Angel Guzman Primary Care Provider Dr. Angel Guzman Referring Provider Roof TEMPERATURE CONTROL INSPECTOR, TEMPERATURE CONTROL INSPECTOR-Jose M George Attending Provider Dr. Angel Guzman Primary Care Provider Dr. Angel Guzman Referring Provider Roof TEMPERATURE CONTROL INSPECTOR, TEMPERATURE CONTROL INSPECTOR-Jose M George Attending Provider Roof TEMPERATURE CONTROL INSPECTOR, TEMPERATURE CONTROL INSPECTOR-Jose M George Other Provider Dr. Lan Harris Attending Provider Dr. Angel Guzman Primary Care Provider Dr. Angel Guzman Referring Provider Patricia Watt Attending Provider Unavailable [place], [place] Patricia Davidson Attending Provider Dr. Raul Yan Attending Provider Dr. Raul Yan Referring Provider Dr. Angel Guzman Primary Care Provider Dr. Angel Guzman Referring Provider iWl[place], [place] Patricia Davidson Attending Provider Dr. Angel Guzman Primary Care Provider Dr. Angel Guzman Referring Provider MENDOZA Kemp Attending Provider MENDOZA Kemp Referring Provider MENDOZA Kemp Other Provider Dr. Hector Tomlin Attending Provider Thomas SUGGS, Dr. Angel Flores Primary Care Provider Thomas SUGGS, Dr. Angel Flores Referring Provider Dr. Santy Mckeon MD Attending Provider Angel Guzman Primary Care Unavailable Patricia Núñez Attending UnavailAngel Mata Referring Unavailable Angel Guzman Attending Unavailable Angel uGzman Primary Care Unavailable Angel Guzman Primary Care Unavailable Patricia Núñez Attending UnavailAngel Mata Referring Unavailable Santy Mckeon Attending Unavailable Angel Guzman Referring Unavailable Angel Guzman Primary Care Unavailable Angel Guzman Primary Care Unavailable Angel Guzman Attending Unavailable Angel Guzman Referring Unavailable Angel Guzman Primary Care Unavailable Angel Guzman Attending Unavailable Angel Guzman Referring Unavailable Allergies Allergy Classification Reported Allergen(s) Allergy Type Date of Onset Reaction(s) Facility (11 sources) Chlorhexidine Drug Allergy 03-13-2022 rash [facility] (1 source) Chlorhexidine Drug Allergy 12-26-2024 [facility] Repository Medications Current Medications Medication Drug Class(es) Dates Sig (Normalized) Sig (Original) apixaban 5 mg oral tablet (20 sources) Factor Xa Inhibitor Start: 12-09-2022 End: 10-07-2024 take 1 tablet by mouth twice daily Apixaban (Eliquis) 5 mg tablet Active 5 mg PO TWICE A DAY 180 October 07, 2024 3:23pm atorvastatin 20 mg [...] 40 mg tablet Discontinued 0 .ROUTE .COMPLEX 90 July 04, 2023 4:08pm April 08, 2024 [...] ADULT ASPIRIN EC LOW STRENGTH 81 MG [facility] ASPIRIN [id number] Jesse Greer Start: 08-09-2016 ADULT ASPIRIN EC LOW STRENGTH 81 MG [facility] ASPIRIN [id number] Jesse Greer Start: 01-02-2014 End: 08-12-2017 take [...] mg tablet Discontinued 75 mg PO DAILY September 19, 2022 12:41pm December 09, 2022 9:46am lisinopril 5 mg oral tablet (14 sources) Angiotensin Converting Enzyme Inhibitor Start: 08-09-2016 LISINOPRIL 5 MG TABS LISINOPRIL [id number] Jesse Greer Start: 01-02-2014 End: 05-05-2020 take [...] Coronary atherosclerosis; Translations: [Atherosclerotic heart disease of [place] coronary artery without angina pectoris] Chronic Disorders [...] Test Name Value Interpretation Reference Range Facility CBC W/Diff, Automatedon 12-15 Absolute Lymph 1.62 X10 3/uL Normal 0.83-4.51 [facility] Comment on above: Order Comment: Order Date: 01/01/25 Order Info: 0184-1 - CBCD Performed By: #### L 500.4100, L501.5200, L100.0100, L500.4050 #### [facility] [address] [place], [place], [id number] Absolute Neut 4.3 X10 3/uL Normal 2.0-7.7 [facility] Comment on above: Order Comment: Order Date: 01/01/25 Order Info: 0184-1 - CBCD Performed By: #### L 500.4100, L501.5200, L100.0100, L500.4050 #### [facility] [address] [place], [address] Basophils/100 WBC (Bld) 0.6 % Normal 0-1 [facility] Comment on above: Order Comment: Order Date: 01/01/25 Order Info: 0184-1 - CBCD Performed By: #### L 500.4100, L501.5200, L100.0100, L500.4050 #### [facility] [address] [place], [address] Eosinophils/100 WBC (Bld) 3.8 % Normal 0-5 [facility] Comment on above: Order Comment: Order Date: 01/01/25 Order Info: 018- - CBCD Performed By: #### L 500.4100, L501.5200, L100.0100, L500.4050 #### [facility] [address] [place], [address] Erythrocyte distribution width (RBC) [Ratio] 12.8 % Normal 11.6-14.6 [facility] Comment on above: Order Comment: Order Date: 01/01/25 Order Info: 018- - CBCD Performed By: #### L 500.4100, L501.5200, L100.0100, L500.4050 #### [facility] [address] [place], [address] Hematocrit (Bld) [Volume fraction] 42.0 % Normal 40-54 [facility] Comment on above: Order Comment: Order Date: 01/01/25 Order Info: 0184-1 - CBCD Performed By: #### L 500.4100, L501.5200, L100.0100, L500.4050 #### [facility] [address] [place], [address] Hemoglobin (Bld) [Mass/Vol] 13.9 g/dL Normal 13.0-16.5 [facility] Comment on above: Order Comment: Order Date: 01/01/25 Order Info: 0184-1 - CBCD Performed By: #### L 500.4100, L501.5200, L100.0100, L500.4050 #### [facility] [address] [place], [address] IG% 0.200 Normal 0.0-0.9 [facility] Comment on above: Order Comment: Order Date: 01/01/25 Order Info: 0184- - CBCD Result Comment: IG% - Immature Granulocytes (promyelocytes, myelocytes and metamyelocytes) > 1% indicates that a LEFT SHIFT is Present. Performed By: #### L 500.4100, L501.5200, L100.0100, L500.4050 #### [facility] [address] [place], [address] Lymphocytes/100 WBC (Bld) 24.4 % Normal 19-41 [facility] Comment on above: Order Comment: Order Date: 01/01/25 Order Info: 0184- - CBCD Performed By: #### L 500.4100, L501.5200, L100.0100, L500.4050 #### [facility] [address] [place], [address] MCH (RBC) [Entitic mass] 30.3 pg Normal 27.0-32.0 [facility] Comment on above: Order Comment: Order Date: 01/01/25 Order Info: 0184- - CBCD Performed By: #### L 500.4100, L501.5200, L100.0100, L500.4050 #### [facility] [address] [place], [address] MCHC (RBC) [Mass/Vol] 33.1 g/dL Normal 32-36 [facility] Comment on above: Order Comment: Order Date: 01/01/25 Order Info: 0184- - CBCD Performed By: #### L 500.4100, L501.5200, L100.0100, L500.4050 #### [facility] [address] [place], [address] MCV (RBC) [Entitic vol] 91.7 fL Normal 80-94 [facility] Comment on above: Order Comment: Order Date: 01/01/25 Order Info: 0184-1 - CBCD Performed By: #### L 500.4100, L501.5200, L100.0100, L500.4050 #### [facility] [address] [place], [address] Monocytes/100 WBC (Bld) 6.0 % Normal 0-10 [facility] Comment on above: Order Comment: Order Date: 01/01/25 Order Info: 0184- - CBCD Performed By: #### L 500.4100, L501.5200, L100.0100, L500.4050 #### [facility] [address] [place], [address] Neutrophils/100 WBC (Bld) 65.0 % Normal 47-70 [facility] Comment on above: Order Comment: Order Date: 01/01/25 Order Info: 0184- - CBCD Performed By: #### L 500.4100, L501.5200, L100.0100, L500.4050 #### [facility] [address] [place], [address] Nucleated RBC (Bld) [#/Vol] 0 10*3/uL Normal 0-5 [facility] Comment on above: Order Comment: Order Date: 01/01/25 Order Info: 0184-1 - CBCD Performed By: #### L 500.4100, L501.5200, L100.0100, L500.4050 #### [facility] [address] [place], [address] Platelet mean volume (Bld) [Entitic vol] 10.1 fL Normal 6.2-12.0 [facility] Comment on above: Order Comment: Order Date: 01/01/25 Order Info: 0184-1 - CBCD Performed By: #### L 500.4100, L501.5200, L100.0100, L500.4050 #### [facility] [address] [place], [address] Platelets (Bld) [#/Vol] 230 10*3/uL Normal 150-450 [facility] Comment on above: Order Comment: Order Date: 01/01/25 Order Info: 0184-1 - CBCD Performed By: #### L 500.4100, L501.5200, L100.0100, L500.4050 #### [facility] [address] [place], [address] RBC (Bld) [#/Vol] 4.58 10*6/uL Low 4.6-6.2 [facility] Comment on above: Order Comment: Order Date: 01/01/25 Order Info: 0184-1 - CBCD Performed By: #### L 500.4100, L501.5200, L100.0100, L500.4050 #### [facility] [address] [place], [address] RDW SD 42.5 fl Normal 35.1-43.9 [facility] Comment on above: Order Comment: Order Date: 01/01/25 Order Info: 0184-1 - CBCD Performed By: #### L 500.4100, L501.5200, L100.0100, L500.4050 #### [facility] [address] [place], [address] WBC (Bld) [#/Vol] 6.6 10*3/uL Normal 4.4-11.0 [facility] Comment on above: Order Comment: Order Date: 01/01/25 Order Info: 0184-1 - CBCD Performed By: #### L 500.4100, L501.5200, L100.0100, L500.4050 #### [facility] [address] [place], [address] Comprehensive Metabolic Prof ilon 01-01-2025 Albumin [Mass/Vol] 3.9 g/dL Normal 3.4-4.8 [facility] Comment on above: Order Comment: Order Date: 01/01/25 Order Info: 86-1 - CMP Order Info: [id number] - LIPID Order Info: [id number] - MG Performed By: #### L 500.4100, L501.5200, L100.0100, L500.4050 #### [facility] [address] [place], [address] Albumin/Globulin [Mass ratio] 1.4 {ratio} Normal 0.9-2.4 [facility] Comment on above: Order Comment: Order Date: 01/01/25 Order Info: 785-1 - CMP Order Info: [id number] - LIPID Order Info: [id number] - MG Performed By: #### L 500.4100, L501.5200, L100.0100, L500.4050 #### [facility] [address] [place], [address] ALK PHOS 104 U/L Normal 40-129 [facility] Comment on above: Order Comment: Order Date: 01/01/25 Order Info: 0786-1 - CMP Order Info: [id number] - LIPID Order Info: [id number] - MG Performed By: #### L 500.4100, L501.5200, L100.0100, L500.4050 #### [facility] [address] [place], [address] ALT [Catalytic activity/Vol] 24 U/L Normal <=46 [facility] Comment on above: Order Comment: Order Date: 01/01/25 Order Info: 0786-1 - CMP Order Info: [id number] - LIPID Order Info: [id number] - MG Performed By: #### L 500.4100, L501.5200, L100.0100, L500.4050 #### [facility] [address] [place], [address] AST [Catalytic activity/Vol] 28 U/L Normal <=37 [facility] Comment on above: Order Comment: Order Date: 01/01/25 Order Info: 86-1 - CMP Order Info: [id number] - LIPID Order Info: [id number] - MG Performed By: #### L 500.4100, L501.5200, L100.0100, L500.4050 #### [facility] [address] [place], [address] Bilirubin [Mass/Vol] 0.44 mg/dL Normal 0.00-1.30 [facility] Comment on above: Order Comment: Order Date: 01/01/25 Order Info: [id number] - CMP Order Info: [id number] - LIPID Order Info: [id number] - MG Performed By: #### L 500.4100, L501.5200, L100.0100, L500.4050 #### [facility] [address] [place], [address] BUN/CRE 18.8 RATIO Normal 10-20 [facility] Comment on above: Order Comment: Order Date: 01/01/25 Order Info: [id number] - CMP Order Info: [id number] - LIPID Order Info: [id number] - MG Performed By: #### L 500.4100, L501.5200, L100.0100, L500.4050 #### [facility] [address] [place], [address] Calcium [Mass/Vol] 9.5 mg/dL Normal 7.6-11.0 [facility] Comment on above: Order Comment: Order Date: 01/01/25 Order Info: 0786-1 - CMP Order Info: [id number] - LIPID Order Info: [id number] - MG Performed By: #### L 500.4100, L501.5200, L100.0100, L500.4050 #### [facility] [address] [place], [address] Chloride [Moles/Vol] 106 mmol/L Normal 98-108 [facility] Comment on above: Order Comment: Order Date: 01/01/25 Order Info: 0786-1 - CMP Order Info: [id number] - LIPID Order Info: [id number] - MG Performed By: #### L 500.4100, L501.5200, L100.0100, L500.4050 #### [facility] [address] [place], [address] CO2 [Moles/Vol] 24.7 mmol/L Normal 21.0-32.0 [facility] Comment on above: Order Comment: Order Date: 01/01/25 Order Info: 785-1 - CMP Order Info: [id number] - LIPID Order Info: [id number] - MG Performed By: #### L 500.4100, L501.5200, L100.0100, L500.4050 #### [facility] [address] [place], [place], [address] Creatinine [Mass/Vol] 1.06 mg/dL Normal 0.70-1.20 [facility] Comment on above: Order Comment: Order Date: 01/01/25 Order Info: 0786-1 - CMP Order Info: [id number] - LIPID Order Info: [id number] - MG Performed By: #### L 500.4100, L501.5200, L100.0100, L500.4050 #### [facility] [address] [place], [address] GAP 9 Normal 5-15 [facility] Comment on above: Order Comment: Order Date: 01/01/25 Order Info: 0786-1 - CMP Order Info: [id number] - LIPID Order Info: [id number] - MG Performed By: #### L 500.4100, L501.5200, L100.0100, L500.4050 #### [facility] [address] [place], [address] GFR/1.73 sq M.predicted among non-blacks MDRD (S/P/Bld) [Vol rate/Area] 75 mL/min/{1.73_m2} Normal >60 [facility] Comment on above: Order Comment: Order Date: 01/01/25 Order Info: 0786-1 - CMP Order Info: [id number] - LIPID Order Info: [id number] - MG Result Comment: mL/m in/1.73m2 CKD-EPI Creatinine Equation (2020) Performed By: #### L 500.4100, L501.5200, L100.0100, L500.4050 #### [facility] [address] [place], [address] Globulin (S) [Mass/Vol] 2.7 g/dL Normal 2.2-4.2 [facility] Comment on above: Order Comment: Order Date: 01/01/25 Order Info: 0786-1 - CMP Order Info: [id number] - LIPID Order Info: [id number] - MG Performed By: #### L 500.4100, L501.5200, L100.0100, L500.4050 #### [facility] [address] [place], [address] Glucose [Mass/Vol] 99 mg/dL Normal 70-99 [facility] Comment on above: Order Comment: Order Date: 01/01/25 Order Info: 0786-1 - CMP Order Info: [id number] - LIPID Order Info: [id number] - MG Performed By: #### L 500.4100, L501.5200, L100.0100, L500.4050 #### [facility] [address] [place], [address] Potassium [Moles/Vol] 4.6 mmol/L Normal 3.3-5.1 [facility] Comment on above: Order Comment: Order Date: 01/01/25 Order Info: 0786-1 - CMP Order Info: [id number] - LIPID Order Info: [id number] - MG Performed By: #### L 500.4100, L501.5200, L100.0100, L500.4050 #### [facility] [address] [place], [address] Sodium [Moles/Vol] 139 mmol/L Normal 133-145 [facility] Comment on above: Order Comment: Order Date: 01/01/25 Order Info: 0786- - CMP Order Info: [id number] - LIPID Order Info: [id number] - MG Performed By: #### L 500.4100, L501.5200, L100.0100, L500.4050 #### [facility] [address] [place], [address] T PROT 6.6 g/dL Normal 5.9-8.4 [facility] Comment on above: Order Comment: Order Date: 01/01/25 Order Info: 0786- - CMP Order Info: [id number] - LIPID Order Info: [id number] - MG Performed By: #### L 500.4100, L501.5200, L100.0100, L500.4050 #### [facility] [address] [place], [address] Urea nitrogen [Mass/Vol] 20 mg/dL High 4-19 [facility] Comment on above: Order Comment: Order Date: 01/01/25 Order Info: 0786-1 - CMP Order Info: [id number] - LIPID Order Info: [id number] - MG Performed By: #### L 500.4100, L501.5200, L100.0100, L500.4050 #### [facility] [address] [place], [address] Lipid Profileon 01-01-2025 CHOL:HDL 2.57 Normal [facility] Comment on above: Order Comment: Order Date: 01/01/25 Order Info: 0786- - CMP Order Info: [id number] - LIPID Order Info: - MG Performed By: #### L 500.4100, L501.5200, L100.0100, L500.4050 #### [facility] [address] [place], [place], [address] Cholesterol [Mass/Vol] 121 mg/dL Normal <=200 [facility] Comment on above: Order Comment: Order Date: 01/01/25 Order Info: 07 - CMP Order Info: - LIPID Order Info: [id number] - MG Result Comment: Chol esterol level, Desirable <200 mg/dL Borderline high cholesterol 200-239 mg/dL High cholesterol >=240 mg/dL Recommendations of the NCEP Adult Treatment Panel for the following risk-cutoff thresholds for the [place] population. Performed By: #### L 500.4100, L501.5200, L100.0100, L500.4050 #### [facility] [address] [place], [address] Cholesterol in HDL [Mass/Vol] 47 mg/dL Normal [facility] Comment on above: Order Comment: Order Date: 01/01/25 Order Info: 07 - CMP Order Info: - LIPID Order Info: [id number] - MG Result Comment: [place] onal Cholesterol Education Program (NCEP) guidelines: <40 mg/dL: Low HDL-cholesterol (major risk factor for CHD) >= 60 mg/dL: High HDL-cholesterol (negative risk factor for CHD) HDL-cholesterol is affected by a number of factors, e.g. smoking, exercise, hormones, sex and age. Performed By: #### L 500.4100, L501.5200, L100.0100, L500.4050 #### [facility] [address] [place], [place], [address] Cholesterol in LDL [Mass/Vol] 40 mg/dL Normal [facility] Comment on above: Order Comment: Order Date: 01/01/25 Order Info: 0786 - CMP Order Info: - LIPID Order Info: [id number] - MG Result Comment: Bord xqzjov=386-137 mg/dL Higher Vsrc=564 mg/dL or greater Performed By: #### L 500.4100, L501.5200, L100.0100, L500.4050 #### [facility] [address] [place], [address] Cholesterol in VLDL [Mass/Vol] 34 mg/dL Normal 5-40 [facility] Comment on above: Order Comment: Order Date: 01/01/25 Order Info: 0786-1 - CMP Order Info: [id number] - LIPID Order Info: [id number] - MG Performed By: #### L 500.4100, L501.5200, L100.0100, L500.4050 #### [facility] [address] [place], [address] Triglyceride [Mass/Vol] 170 mg/dL Normal [facility] Comment on above: Order Comment: Order Date: 01/01/25 Order Info: 0786-1 - CMP Order Info: [id number] - LIPID Order Info: [id number] - MG Result Comment: The drugs N-Acetylcysteine and Metamizole may falsely depress this assay. Normal range: <150 mg/dL Borderline High: 150-199 mg/dL High: 200-499 mg/dL Very High: >500 mg/dL Performed By: #### L 500.4100, L501.5200, L100.0100, L500.4050 #### [facility] [address] [place], [address] Magnesiumon 01-01-2025 Magnesium [Mass/Vol] 2.1 mg/dL Normal 1.5-2.2 [facility] Comment on above: Order Comment: Order Date: 01/01/25 Order Info: 0786-1 - CMP Order Info: [id number] - LIPID Order Info: [id number] - MG Performed By: #### L 500.4100, L501.5200, L100.0100, L500.4050 #### [facility] [address] [place], [address] Cardiology Visit Reporton Cardiology Visit Report [facility] [address] [place] [address] OFFICE VISIT Date of Service: 12/26/24 MR#: [id number] Acct: [id number] Name: YUAN SMITH Rep #: [id number] : 1950 Provider: Dr. 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 Normal [facility] PSA,Total - Annual Screenon 07-03-2024 PSA,TOT SCREEN 2.44 ng/mL Normal 0.00-4.00 [facility] Comment on above: Order Comment: Order Date: 07/03/24 Order Info: [id number] - PSA Result Comment: This test was performed using the TPSA assay method for the [employer] chemistry system. Values obtained with different assay methods cannot be used interchangably. When changing PSA assays in the course of monitoring a patient, additional sequential testing should be carried out to confirm baseline values. Performed By: #### L 501.9910 #### [facility] [address] [facility] [place], [address] [employer] Decub and/or Erecton 04-26-2024 Abd Inc Decub and/or Erect [facility] [address] [place] [address] [employer] Decub and/or Erect MR#: [id number] Acct: [id number] Name: YUAN SMITH Rep #: [id number] : 1950 M 74 From: Goldie Mejia MD PCP: Dr. Angel Guzman MD Status: REG CLI Study: [employer] Decub and/or Erect Date of Exam: 04/26 Exam# [id number] Ordering Dr: Angel Guzman MD [id number] EXAM: XR ABDOMEN, 4 VIEWS CLINICAL INDICATION: [...] 19:54 EDT Reading Location ID and State: [facility] / [place] Tel , Service support , CC: Dr. Angel Guzman MD Animal Ecologist: Signed Normal [facility] CBC W/Diff, Automatedon 04-16 Absolute Lymph 1.46 X10 3/uL Normal 0.83-4.51 [facility] Comment on above: Order Comment: Order Date: 04/26/24 Order Info: 0184-1 - CBCD Performed By: #### L 100.0100, L500.4050, L501.2450 #### [facility] [address] [place], [address] Absolute Neut 8.8 X10 3/uL High 2.0-7.7 [facility] Comment on above: Order Comment: Order Date: 04/26/24 Order Info: 0184-1 - CBCD Performed By: #### L 100.0100, L500.4050, L501.2450 #### [facility] [address] [place], [address] Basophils/100 WBC (Bld) 0.3 % Normal 0-1 [facility] Comment on above: Order Comment: Order Date: 04/26/24 Order Info: 0184-1 - CBCD Performed By: #### L 100.0100, L500.4050, L501.2450 #### [facility] [address] [place], [address] Eosinophils/100 WBC (Bld) 0.4 % Normal 0-5 [facility] Comment on above: Order Comment: Order Date: 04/26/24 Order Info: 0184-1 - CBCD Performed By: #### L 100.0100, L500.4050, L501.2450 #### [facility] [address] [place], [address] Erythrocyte distribution width (RBC) [Ratio] 12.8 % Normal 11.6-14.6 [facility] Comment on above: Order Comment: Order Date: 04/26/24 Order Info: 018- - CBCD Performed By: #### L 100.0100, L500.4050, L501.2450 #### [facility] [address] [place], [address] Hematocrit (Bld) [Volume fraction] 45.4 % Normal 40-54 [facility] Comment on above: Order Comment: Order Date: 04/26/24 Order Info: 018- - CBCD Performed By: #### L 100.0100, L500.4050, L501.2450 #### [facility] [address] [place], [address] Hemoglobin (Bld) [Mass/Vol] 14.5 g/dL Normal 13.0-16.5 [facility] Comment on above: Order Comment: Order Date: 04/26/24 Order Info: 018-1 - CBCD Performed By: #### L 100.0100, L500.4050, L501.2450 #### [facility] [address] [place], [address] IG% 0.600 Normal 0.0-0.9 [facility] Comment on above: Order Comment: Order Date: 04/26/24 Order Info: 018- - CBCD Result Comment: IG% - Immature Granulocytes (promyelocytes, myelocytes and metamyelocytes) > 1% indicates that a LEFT SHIFT is Present. Performed By: #### L 100.0100, L500.4050, L501.2450 #### [facility] [address] [place], [address] Lymphocytes/100 WBC (Bld) 13.1 % Low 19-41 [facility] Comment on above: Order Comment: Order Date: 04/26/24 Order Info: 018- - CBCD Performed By: #### L 100.0100, L500.4050, L501.2450 #### [facility] [address] [place], [address] MCH (RBC) [Entitic mass] 29.4 pg Normal 27.0-32.0 [facility] Comment on above: Order Comment: Order Date: 04/26/24 Order Info: 018- - CBCD Performed By: #### L 100.0100, L500.4050, L501.2450 #### [facility] [address] [place], [address] MCHC (RBC) [Mass/Vol] 31.9 g/dL Low 32-36 [facility] Comment on above: Order Comment: Order Date: 04/26/24 Order Info: 018- - CBCD Performed By: #### L 100.0100, L500.4050, L501.2450 #### [facility] [address] [place], [address] MCV (RBC) [Entitic vol] 91.9 fL Normal 80-94 [facility] Comment on above: Order Comment: Order Date: 04/26/24 Order Info: 018- - CBCD Performed By: #### L 100.0100, L500.4050, L501.2450 #### [facility] [address] [place], [address] Monocytes/100 WBC (Bld) 6.5 % Normal 0-10 [facility] Comment on above: Order Comment: Order Date: 04/26/24 Order Info: 0184-1 - CBCD Performed By: #### L 100.0100, L500.4050, L501.2450 #### [facility] [address] [place], [address] Neutrophils/100 WBC (Bld) 79.1 % High 47-70 [facility] Comment on above: Order Comment: Order Date: 04/26/24 Order Info: 0184-1 - CBCD Performed By: #### L 100.0100, L500.4050, L501.2450 #### [facility] [address] [place], [address] Nucleated RBC (Bld) [#/Vol] 0 10*3/uL Normal 0-5 [facility] Comment on above: Order Comment: Order Date: 04/26/24 Order Info: 0184-1 - CBCD Performed By: #### L 100.0100, L500.4050, L501.2450 #### [facility] [address] [place], [address] Platelet mean volume (Bld) [Entitic vol] 10.0 fL Normal 6.2-12.0 [facility] Comment on above: Order Comment: Order Date: 04/26/24 Order Info: 0184-1 - CBCD Performed By: #### L 100.0100, L500.4050, L501.2450 #### [facility] [address] [place], [address] Platelets (Bld) [#/Vol] 243 10*3/uL Normal 150-450 [facility] Comment on above: Order Comment: Order Date: 04/26/24 Order Info: 0184-1 - CBCD Performed By: #### L 100.0100, L500.4050, L501.2450 #### [facility] [address] [place], [address] RBC (Bld) [#/Vol] 4.94 10*6/uL Normal 4.6-6.2 [facility] Comment on above: Order Comment: Order Date: 04/26/24 Order Info: 0184-1 - CBCD Performed By: #### L 100.0100, L500.4050, L501.2450 #### [facility] [address] [place], [address] RDW SD 43.3 fl Normal 35.1-43.9 [facility] Comment on above: Order Comment: Order Date: 04/26/24 Order Info: 0184- - CBCD Performed By: #### L 100.0100, L500.4050, L501.2450 #### [facility] [address] [place], [address] WBC (Bld) [#/Vol] 11.2 10*3/uL High 4.4-11.0 [facility] Comment on above: Order Comment: Order Date: 04/26/24 Order Info: 0184-1 - CBCD Performed By: #### L 100.0100, L500.4050, L501.2450 #### [facility] [address] [place], [address] Comprehensive Metabolic Prof caon 04-26-2024 Albumin [Mass/Vol] 3.3 g/dL Normal 3.2-5.0 [facility] Comment on above: Order Comment: Order Date: 04/26/24 Order Info: 0786-1 - CMP Order Info: 3040-3 - LIPASE Performed By: #### L 100.0100, L500.4050, L501.2450 #### [facility] [address] [place], [address] Albumin/Globulin [Mass ratio] 0.7 {ratio} Low 0.9-2.4 [facility] Comment on above: Order Comment: Order Date: 04/26/24 Order Info: 0786-1 - CMP Order Info: 3040-3 - LIPASE Performed By: #### L 100.0100, L500.4050, L501.2450 #### [facility] [address] [place], [address] ALK P 105 U/L Normal 45-117 [facility] Comment on above: Order Comment: Order Date: 04/26/24 Order Info: 0786-1 - CMP Order Info: 3040-3 - LIPASE Performed By: #### L 100.0100, L500.4050, L501.2450 #### [facility] [address] [place], [address] ALT [Catalytic activity/Vol] 48 U/L Normal 16-61 [facility] Comment on above: Order Comment: Order Date: 04/26/24 Order Info: 0786-1 - CMP Order Info: 3040-3 - LIPASE Performed By: #### L 100.0100, L500.4050, L501.2450 #### [facility] [address] [place], [address] AST [Catalytic activity/Vol] 28 U/L Normal 15-37 [facility] Comment on above: Order Comment: Order Date: 04/26/24 Order Info: 0786-1 - CMP Order Info: 3040-3 - LIPASE Performed By: #### L 100.0100, L500.4050, L501.2450 #### [facility] [address] [place], [address] Bilirubin [Mass/Vol] 1.10 mg/dL High 0.20-1.00 [facility] Comment on above: Order Comment: Order Date: 04/26/24 Order Info: 0786-1 - CMP Order Info: 3040-3 - LIPASE Result Comment: For patients on eltrombopag therapy, use of Dimension [place] TBIL is not recommended. Performed By: #### L 100.0100, L500.4050, L501.2450 #### [facility] [address] [place], [address] BUN/CRE 15.4 RATIO Normal 10-20 [facility] Comment on above: Order Comment: Order Date: 04/26/24 Order Info: 0786-1 - CMP Order Info: 3040-3 - LIPASE Performed By: #### L 100.0100, L500.4050, L501.2450 #### [facility] [address] [place], [address] CA,Total 9.8 mg/dL Normal 8.5-10.1 [facility] Comment on above: Order Comment: Order Date: 04/26/24 Order Info: 07-1 - CMP Order Info: 3039-3 - LIPASE Performed By: #### L 100.0100, L500.4050, L501.2450 #### [facility] [address] [place], [address] Chloride [Moles/Vol] 104 mmol/L Normal 98-107 [facility] Comment on above: Order Comment: Order Date: 04/26/24 Order Info: 0786-1 - CMP Order Info: 3040-3 - LIPASE Performed By: #### L 100.0100, L500.4050, L501.2450 #### [facility] [address] [place], [address] CO2 [Moles/Vol] 26.0 mmol/L Normal 21.0-32.0 [facility] Comment on above: Order Comment: Order Date: 04/26/24 Order Info: 0786-1 - CMP Order Info: 3040-3 - LIPASE Performed By: #### L 100.0100, L500.4050, L501.2450 #### [facility] [address] [place], [address] Creatinine [Mass/Vol] 1.23 mg/dL Normal 0.70-1.30 [facility] Comment on above: Order Comment: Order Date: 04/26/24 Order Info: 0786- - CMP Order Info: 3040-3 - LIPASE Result Comment: The validity of the calculated GFR GFRAA in patients over 70 years has not been determined. Clinical correlation is essential. Performed By: #### L 100.0100, L500.4050, L501.2450 #### [facility] [address] [place], [address] EST GFR - AA 74 mL/min Normal >60 [facility] Comment on above: Order Comment: Order Date: 04/26/24 Order Info: 0786 - CMP Order Info: 304-3 - LIPASE Result Comment: Afri can Armenian GFR Calc Performed By: #### L 100.0100, L500.4050, L501.2450 #### [facility] [address] [place], [address] GAP 6 Normal 5-15 [facility] Comment on above: Order Comment: Order Date: 04/26/24 Order Info: 0786- - CMP Order Info: 3040-3 - LIPASE Performed By: #### L 100.0100, L500.4050, L501.2450 #### [facility] [address] [place], [address] GFR/1.73 sq M.predicted among non-blacks MDRD (S/P/Bld) [Vol rate/Area] 62 mL/min/{1.73_m2} Normal >60 [facility] Comment on above: Order Comment: Order Date: 04/26/24 Order Info: 0786- - CMP Order Info: 3040-3 - LIPASE Result Comment: Non- GFR Calc Performed By: #### L 100.0100, L500.4050, L501.2450 #### [facility] [address] [place], [address] Globulin (S) [Mass/Vol] 4.5 g/dL High 2.2-4.2 [facility] Comment on above: Order Comment: Order Date: 04/26/24 Order Info: 0786-1 - CMP Order Info: 3040-3 - LIPASE Performed By: #### L 100.0100, L500.4050, L501.2450 #### [facility] [address] [place], [address] Glucose [Mass/Vol] 76 mg/dL Normal 74-106 [facility] Comment on above: Order Comment: Order Date: 04/26/24 Order Info: 0786-1 - CMP Order Info: 3040-3 - LIPASE Performed By: #### L 100.0100, L500.4050, L501.2450 #### [facility] [address] [place], [address] Potassium [Moles/Vol] 3.9 mmol/L Normal 3.5-5.1 [facility] Comment on above: Order Comment: Order Date: 04/26/24 Order Info: 0786-1 - CMP Order Info: 3040-3 - LIPASE Performed By: #### L 100.0100, L500.4050, L501.2450 #### [facility] [address] [place], [address] Sodium [Moles/Vol] 136 mmol/L Normal 136-145 [facility] Comment on above: Order Comment: Order Date: 04/26/24 Order Info: 0786-1 - CMP Order Info: 3040-3 - LIPASE Performed By: #### L 100.0100, L500.4050, L501.2450 #### [facility] [address] [place], [address] T PROT 7.8 g/dL Normal 6.4-8.2 [facility] Comment on above: Order Comment: Order Date: 04/26/24 Order Info: 0786-1 - CMP Order Info: 3040-3 - LIPASE Performed By: #### L 100.0100, L500.4050, L501.2450 #### [facility] [address] [place], [address] Urea nitrogen [Mass/Vol] 19 mg/dL High 7-18 [facility] Comment on above: Order Comment: Order Date: 04/26/24 Order Info: 0786-1 - CMP Order Info: 3040-3 - LIPASE Performed By: #### L 100.0100, L500.4050, L501.2450 #### [facility] [address] [place], [address] Lipaseon 04-26-2024 Lipase [Catalytic activity/Vol] 23 U/L Normal 13-75 [facility] Comment on above: Order Comment: Order Date: 04/26/24Order Info: 0786-1 - CMPOrder Info: 3040-3 - LIPASE Result Comment: Andra rodríguez note: LIPASE revised reference range effective 22. New Lipase methodology. Expected to produce lower values than the previous assay method. NEW Reference Range: 13 - 75 U/L Performed By: #### L 100.0100, L500.4050, L501.2450 ####[facility] [address] [place], [address] Cardiology Visit Reporton Cardiology Visit Report [facility] 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 Normal [facility] Absolute lymphocyte countOrd ered By: Angel Guzman on 06-13-2023 Lymphocytes Auto (Unsp spec) [#/Vol] 1.02 10*3/uL 0.83-4.51 [facility] Basophil percentageOrdered B y: Angel Guzman on 06-13-2023 Basophils/100 WBC (Bld) 0.4 % 0-1 [facility] Bilirubin [Mass/Vol] 0.60 mg/dL 0.20-1.00 [facility] Comment on above: For patients on eltr ombopag therapy, use of Dimension [place] TBIL is not recommended. Chloride [Moles/Vol] 105 mmol/L 98-107 [facility] Cholesterol [Mass/Vol] 122 mg/dL <200 [facility] Comment on above: <200 mg/dL Desirable 200-240 mg/dL Borderline >240 mg/dL High Risk Eosinophils/100 WBC (Bld) 0.9 % 0-5 [facility] Glucose [Mass/Vol] 96 mg/dL 74-106 [facility] Neutrophils (Bld) [#/Vol] 9.4 10*3/uL 2.0-7.7 [facility] Neutrophils/100 WBC (Bld) 83.1 % 47-70 [facility] Potassium [Moles/Vol] 4.4 mmol/L 3.5-5.1 [facility] Protein [Mass/Vol] 7.7 g/dL 6.4-8.2 [facility] Sodium [Moles/Vol] 138 mmol/L 136-145 [facility] Triglyceride [Mass/Vol] 89 mg/dL <199 [facility] Comment on above: The drugs N-Acetylcy steine and Metamizole may falsely depress this assay.Serum Triglycerides Reference Interval Normal <150 mg/dL Borderline high 150 - 199 mg/dL High 200 - 499 mg/dL Very High > or = 500 mg/dL WBC (Bld) [#/Vol] 11.3 10*3/uL 4.4-11.0 [facility] Blood erythrocytes count (nu mber/volume)Ordered By: Angel Guzman on 06-13-2023 RBC (Bld) [#/Vol] 5.12 10*6/uL 4.6-6.2 [facility] Blood hemoglobin measurement (mass/volume)Ordered By: Angel Guzman on 06-13-2023 Hemoglobin (Bld) [Mass/Vol] 15.3 g/dL 13.0-16.5 [facility] Blood lymphocytes/100 leukoc ytesOrdered By: Angel Guzman on 06-13-2023 Lymphocytes/100 WBC (Bld) 9.1 % 19-41 [facility] Blood monocytes/100 leukocyt esOrdered By: Angel Guzman on 06-13-2023 Monocytes/100 WBC (Bld) 6.3 % 0-10 [facility] Blood platelet mean volumeOr dered By: Angel Guzman on 06-13-2023 Platelet mean volume (Bld) [Entitic vol] 9.3 fL 6.2-12.0 [facility] Determination of erythrocyte mean corpuscular volume (MCV)Ordered By: Angel Guzman on 06-13-2023 MCV (RBC) [Entitic vol] 92.6 fL 80-94 [facility] Hematocrit Auto (Bld) [Volum e fraction]Ordered By: Angel Guzman on 06-13-2023 Hematocrit (Bld) [Volume fraction] 47.4 % 40-54 [facility] - Chemistry and C hemistry - challengeOrdered By: Angel Guzman on 06-13-2023 ALP [Catalytic activity/Vol] 112 U/L 45-117 [facility] ALT [Catalytic activity/Vol] 44 U/L 16-61 [facility] CO2 [Moles/Vol] 25.0 mmol/L 21.0-32.0 [facility] Globulin (S) [Mass/Vol] 3.8 g/dL 2.2-4.2 [facility] Magnesium [Mass/Vol] 2.3 mg/dL 1.6-2.6 [facility] Urea nitrogen/Creatinine [Mass ratio] 20.4 mg/mg 10-20 [facility] - Hematology and Cell countsOrdered By: Angel Guzman on 06-13-2023 Erythrocyte distribution width (RBC) [Entitic vol] 43.8 fL 35.1-43.9 [facility] Erythrocyte distribution width (RBC) [Ratio] 12.8 % 11.6-14.6 [facility] Immature granulocytes/100 WBC (Bld) 0.200 % 0.0-0.9 [facility] Comment on above: IG% - Immature Granu locytes (promyelocytes, myelocytes and metamyelocytes) > 1% indicates that a LEFT SHIFT is Present. MCH (RBC) [Entitic mass] 29.9 pg 27.0-32.0 [facility] Nucleated RBC/100 WBC (Bld) [Ratio] 0 % 0-5 [facility] MCHC Auto (RBC) [Mass/Vol]Or dered By: Angel Guzman on 06-13-2023 MCHC (RBC) [Mass/Vol] 32.3 g/dL 32-36 [facility] No Panel InformationOrdered By: Angel Guzman on 06-13-2023 Estimated GFR (MDRD) Amer 87 mL/min >60 [facility] Comment on above: GFR Calc Estimated GFR (MDRD) Non-Af Amer 72 mL/min >60 [facility] Comment on above: Non- GFR Calc Prostate Specific Antigen Screen 2.00 ng/mL 0.00-4.00 [facility] Comment on above: This test was perfor med using the TPSA assay method for [employer] chemistry system. Values obtained with differentassay methods cannot be used interchangably.When changing PSA assays in the course of monitoring apatient, additional sequential testing should be carriedout to confirm baseline values. Thyroid Stimulating Hormone (TSH) 0.63 uIU/mL 0.358-3.74 [facility] Platelets bldOrdered By: Pranay Guzman on 06-13-2023 Platelets (Bld) [#/Vol] 209 10*3/uL 150-450 [facility] Serum or plasma albumin magda urement (mass/volume)Ordered By: Angel Guzman on 06-13-2023 Albumin [Mass/Vol] 3.9 g/dL 3.2-5.0 [facility] Serum or plasma albumin/glob ulin mass ratioOrdered By: Angel Guzman on 06-13-2023 Albumin/Globulin [Mass ratio] 1.0 {ratio} 0.9-2.4 [facility] Serum or plasma calcium magda urement (mass/volume)Ordered By: Angel Guzman on 06-13-2023 Calcium [Mass/Vol] 9.0 mg/dL 8.5-10.1 [facility] Serum or plasma cholesterol in HDL measurement (mass/volume)Ordered By: Angel Guzman on 06-13-2023 Cholesterol in HDL [Mass/Vol] 62 mg/dL >40 [facility] Comment on above: The drugs N-Acetylcy steine and Metamizole may falsely depress this assay. Reference Range HDL <40 mg/dL Low HDL Cholesterol HDL >or= 60 mg/dL High HDL Cholesterol Serum or plasma cholesterol in VLDL measurement (mass/volume)Ordered By: Angel Guzman on 06-13-2023 Cholesterol in VLDL [Mass/Vol] 18 mg/dL 5-40 [facility] Serum or plasma creatinine m easurement (mass/volume)Ordered By: Angel Guzman on 06-13-2023 Creatinine [Mass/Vol] 1.08 mg/dL 0.70-1.30 [facility] Comment on above: The validity of the calculated GFR & GFRAA in patients over 70 years has not been determined. Clinical correlation is essential. Serum or plasma low density lipoprotein (LDL) cholesterol measurement (mass/volume)Ordered By: Angel Guzman on 06-13-2023 Cholesterol in LDL [Mass/Vol] 42 mg/dL 0-130 [facility] Serum or plasma urea nitroge n measurement (mass/volume)Ordered By: Angel Guzman on 06-13-2023 Urea nitrogen [Mass/Vol] 22 mg/dL 7-18 [facility] Thin prep Papanicolaou smear with manual screeningOrdered By: Angel Guzman on 06-13-2023 Thin prep Papanicolaou smear with manual screening 28 U/L 15-37 [facility] Thin prep Papanicolaou smear with manual screening 8 5-15 [facility] Absolute lymphocyte countOrd ered By: Angel Guzman on 02-09-2023 Lymphocytes Auto (Unsp spec) [#/Vol] 2.16 10*3/uL 0.83-4.51 [facility] Basophil percentageOrdered B y: Angel Guzman on 02-09-2023 Basophils/100 WBC (Bld) 0.8 % 0-1 [facility] Bilirubin [Mass/Vol] 0.60 mg/dL 0.20-1.00 [facility] Comment on above: For patients on eltr ombopag therapy, use of Dimension [place] TBIL is not recommended. Chloride [Moles/Vol] 105 mmol/L 98-107 [facility] Cholesterol [Mass/Vol] 115 mg/dL <200 [facility] Comment on above: <200 mg/dL Desirable 200-240 mg/dL Borderline >240 mg/dL High Risk Eosinophils/100 WBC (Bld) 4.1 % 0-5 [facility] Glucose [Mass/Vol] 96 mg/dL 74-106 [facility] Neutrophils (Bld) [#/Vol] 3.7 10*3/uL 2.0-7.7 [facility] Neutrophils/100 WBC (Bld) 55.5 % 47-70 [facility] Potassium [Moles/Vol] 4.3 mmol/L 3.5-5.1 [facility] Protein [Mass/Vol] 6.8 g/dL 6.4-8.2 [facility] Sodium [Moles/Vol] 136 mmol/L 136-145 [facility] Triglyceride [Mass/Vol] 107 mg/dL <199 [facility] Comment on above: The drugs N-Acetylcy steine and Metamizole may falsely depress this assay.Serum Triglycerides Reference Interval Normal <150 mg/dL Borderline high 150 - 199 mg/dL High 200 - 499 mg/dL Very High > or = 500 mg/dL WBC (Bld) [#/Vol] 6.7 10*3/uL 4.4-11.0 [facility] Blood erythrocytes count (nu mber/volume)Ordered By: Angel Guzman on 02-09-2023 RBC (Bld) [#/Vol] 4.77 10*6/uL 4.6-6.2 [facility] Blood hemoglobin measurement (mass/volume)Ordered By: Angel Guzman on 02-09-2023 Hemoglobin (Bld) [Mass/Vol] 14.2 g/dL 13.0-16.5 [facility] Blood lymphocytes/100 leukoc ytesOrdered By: Angel Guzman on 02-09-2023 Lymphocytes/100 WBC (Bld) 32.5 % 19-41 [facility] Blood monocytes/100 leukocyt esOrdered By: Angel Guzman on 02-09-2023 Monocytes/100 WBC (Bld) 6.9 % 0-10 [facility] Blood platelet mean volumeOr dered By: Angel Guzman on 02-09-2023 Platelet mean volume (Bld) [Entitic vol] 10.2 fL 6.2-12.0 [facility] Determination of erythrocyte mean corpuscular volume (MCV)Ordered By: Angel Guzman on 02-09-2023 MCV (RBC) [Entitic vol] 94.3 fL 80-94 [facility] Hematocrit Auto (Bld) [Volum e fraction]Ordered By: Angel Guzman on 02-09-2023 Hematocrit (Bld) [Volume fraction] 45.0 % 40-54 [facility] - Chemistry and C hemistry - challengeOrdered By: Angel Guzman on 02-09-2023 ALP [Catalytic activity/Vol] 105 U/L 45-117 [facility] ALT [Catalytic activity/Vol] 33 U/L 16-61 [facility] CO2 [Moles/Vol] 28.0 mmol/L 21.0-32.0 [facility] Globulin (S) [Mass/Vol] 3.3 g/dL 2.2-4.2 [facility] Magnesium [Mass/Vol] 2.3 mg/dL 1.6-2.6 [facility] Urea nitrogen/Creatinine [Mass ratio] 16.7 mg/mg 10-20 [facility] - Hematology and Cell countsOrdered By: Angel Guzman on 02-09-2023 Erythrocyte distribution width (RBC) [Entitic vol] 42.9 fL 35.1-43.9 [facility] Erythrocyte distribution width (RBC) [Ratio] 12.4 % 11.6-14.6 [facility] Immature granulocytes/100 WBC (Bld) 0.200 % 0.0-0.9 [facility] Comment on above: IG% - Immature Granu locytes (promyelocytes, myelocytes and metamyelocytes) > 1% indicates that a LEFT SHIFT is Present. MCH (RBC) [Entitic mass] 29.8 pg 27.0-32.0 [facility] Nucleated RBC/100 WBC (Bld) [Ratio] 0 % 0-5 [facility] MCHC Auto (RBC) [Mass/Vol]Or dered By: Angel Guzman on 07-27-2023 MCHC (RBC) [Mass/Vol] 31.6 g/dL 32-36 [facility] No Panel InformationOrdered By: Angel Guzman on 02-09-2023 Estimated GFR (MDRD) Amer 87 mL/min >60 [facility] Comment on above: GFR Calc Estimated GFR (MDRD) Non-Af Amer 72 mL/min >60 [facility] Comment on above: Non- GFR Calc Thyroid Stimulating Hormone (TSH) 0.83 uIU/mL 0.358-3.74 [facility] Platelets bldOrdered By: Pranay Guzman on 02-09-2023 Platelets (Bld) [#/Vol] 223 10*3/uL 150-450 [facility] Serum or plasma albumin magda urement (mass/volume)Ordered By: Angel Guzman on 02-09-2023 Albumin [Mass/Vol] 3.5 g/dL 3.2-5.0 [facility] Serum or plasma albumin/glob ulin mass ratioOrdered By: Angel Guzman on 02-09-2023 Albumin/Globulin [Mass ratio] 1.1 {ratio} 0.9-2.4 [facility] Serum or plasma calcium magda urement (mass/volume)Ordered By: Angel Guzman on 02-09-2023 Calcium [Mass/Vol] 8.9 mg/dL 8.5-10.1 [facility] Serum or plasma cholesterol in HDL measurement (mass/volume)Ordered By: Angel Guzman on 02-09-2023 Cholesterol in HDL [Mass/Vol] 60 mg/dL >40 [facility] Comment on above: The drugs N-Acetylcy steine and Metamizole may falsely depress this assay. Reference Range HDL <40 mg/dL Low HDL Cholesterol HDL >or= 60 mg/dL High HDL Cholesterol Serum or plasma cholesterol in VLDL measurement (mass/volume)Ordered By: Angel Guzman on 02-09-2023 Cholesterol in VLDL [Mass/Vol] 21 mg/dL 5-40 [facility] Serum or plasma creatinine m easurement (mass/volume)Ordered By: Angel Guzman on 02-09-2023 Creatinine [Mass/Vol] 1.08 mg/dL 0.70-1.30 [facility] Comment on above: The validity of the calculated GFR & GFRAA in patients over 70 years has not been determined. Clinical correlation is essential. Serum or plasma low density lipoprotein (LDL) cholesterol measurement (mass/volume)Ordered By: Angel Guzman on 02-09-2023 Cholesterol in LDL [Mass/Vol] 34 mg/dL 0-130 [facility] Serum or plasma urea nitroge n measurement (mass/volume)Ordered By: Angel Guzman on 02-09-2023 Urea nitrogen [Mass/Vol] 18 mg/dL 7-18 [facility] Thin prep Papanicolaou smear with manual screeningOrdered By: Angel Guzman on 02-09-2023 Thin prep Papanicolaou smear with manual screening 21 U/L 15-37 [facility] Thin prep Papanicolaou smear with manual screening 3 5-15 [facility] Basophil percentageOrdered B y: Tamie Mcleod on 01-19-2023 Chloride [Moles/Vol] 108 mmol/L 98-107 [facility] Glucose [Mass/Vol] 78 mg/dL 74-106 [facility] Potassium [Moles/Vol] 4.1 mmol/L 3.5-5.1 [facility] Sodium [Moles/Vol] 139 mmol/L 136-145 [facility] Laboratory - Chemistry and C hemistry - challengeOrdered By: Tamie Mcleod on 01-19-2023 CO2 [Moles/Vol] 22.0 mmol/L 21.0-32.0 [facility] Magnesium [Mass/Vol] 2.3 mg/dL 1.6-2.6 [facility] Urea nitrogen/Creatinine [Mass ratio] 16.5 mg/mg 10-20 [facility] No Panel InformationOrdered By: Tamie Mcleod on 01-19-2023 Estimated GFR (MDRD) Amer 81 mL/min >60 [facility] Comment on above: GFR Calc Estimated GFR (MDRD) Non-Af Amer 67 mL/min >60 [facility] Comment on above: Non- GFR Calc Serum or plasma calcium magda urement (mass/volume)Ordered By: Tamie Mcleod on 01-19-2023 Calcium [Mass/Vol] 9.1 mg/dL 8.5-10.1 [facility] Serum or plasma creatinine m easurement (mass/volume)Ordered By: Tamie Mcleod on 01-19-2023 Creatinine [Mass/Vol] 1.15 mg/dL 0.70-1.30 [facility] Comment on above: The validity of the calculated GFR & GFRAA in patients over 70 years has not been determined. Clinical correlation is essential. Serum or plasma urea nitroge n measurement (mass/volume)Ordered By: Tamie Mcleod on 01-19-2023 Urea nitrogen [Mass/Vol] 19 mg/dL 7-18 [facility] Thin prep Papanicolaou smear with manual screeningOrdered By: Tamie Mcleod on 01-19-2023 Thin prep Papanicolaou smear with manual screening 9 5-15 [facility] Basophil percentageOrdered B y: Patricia Núñez on 12-09-2022 Chloride [Moles/Vol] 109 mmol/L 98-107 [facility] Glucose [Mass/Vol] 78 mg/dL 74-106 [facility] Potassium [Moles/Vol] 4.1 mmol/L 3.5-5.1 [facility] Sodium [Moles/Vol] 143 mmol/L 136-145 [facility] WBC (Bld) [#/Vol] 7.4 10*3/uL 4.4-11.0 [facility] Blood erythrocytes count (nu mber/volume)Ordered By: Patricia Núñez on 12-09-2022 RBC (Bld) [#/Vol] 5.05 10*6/uL 4.6-6.2 [facility] Blood hemoglobin measurement (mass/volume)Ordered By: Patricia Núñez on 12-09-2022 Hemoglobin (Bld) [Mass/Vol] 15.4 g/dL 13.0-16.5 [facility] Blood platelet mean volumeOr dered By: Patricia Núñez on 12-09-2022 Platelet mean volume (Bld) [Entitic vol] 9.7 fL 6.2-12.0 [facility] Determination of erythrocyte mean corpuscular volume (MCV)Ordered By: Patricia Núñez on 12-09-2022 MCV (RBC) [Entitic vol] 93.3 fL 80-94 [facility] Hematocrit Auto (Bld) [Volum e fraction]Ordered By: Patricia Núñez on 12-09-2022 Hematocrit (Bld) [Volume fraction] 47.1 % 40-54 [facility] Laboratory - Chemistry and C hemistry - challengeOrdered By: Patricia Núñez on 12-09-2022 CO2 [Moles/Vol] 28.0 mmol/L 21.0-32.0 [facility] Magnesium [Mass/Vol] 2.3 mg/dL 1.6-2.6 [facility] Urea nitrogen/Creatinine [Mass ratio] 21.8 mg/mg 10-20 [facility] Laboratory - Hematology and Cell countsOrdered By: Patricia Núñez on 12-09-2022 Erythrocyte distribution width (RBC) [Entitic vol] 43.8 fL 35.1-43.9 [facility] Erythrocyte distribution width (RBC) [Ratio] 12.8 % 11.6-14.6 [facility] MCH (RBC) [Entitic mass] 30.5 pg 27.0-32.0 [facility] MCHC Auto (RBC) [Mass/Vol]Or dered By: Patricia Núñez on 12-09-2022 MCHC (RBC) [Mass/Vol] 32.7 g/dL 32-36 [facility] No Panel InformationOrdered By: Patricia Núñez on 12-09-2022 Estimated GFR (MDRD) Amer 94 mL/min >60 [facility] Comment on above: GFR Calc Estimated GFR (MDRD) Non-Af Amer 78 mL/min >60 [facility] Comment on above: Non- GFR Calc Thyroid Stimulating Hormone (TSH) 1.00 uIU/mL 0.358-3.74 [facility] Platelets bldOrdered By: Jose C Núñez on 12-09-2022 Platelets (Bld) [#/Vol] 255 10*3/uL 150-450 [facility] Serum or plasma calcium magda urement (mass/volume)Ordered By: Patricia Núñez on 12-09-2022 Calcium [Mass/Vol] 9.2 mg/dL 8.5-10.1 [facility] Serum or plasma creatinine m easurement (mass/volume)Ordered By: Patricia Núñez on 12-09-2022 Creatinine [Mass/Vol] 1.01 mg/dL 0.70-1.30 [facility] Comment on above: The validity of the calculated GFR & GFRAA in patients over 70 years has not been determined. Clinical correlation is essential. Serum or plasma urea nitroge n measurement (mass/volume)Ordered By: Patricia Núñez on 12-09-2022 Urea nitrogen [Mass/Vol] 22 mg/dL 7-18 [facility] Thin prep Papanicolaou smear with manual screeningOrdered By: Patricia Núñez on 12-09-2022 Thin prep Papanicolaou smear with manual screening 6 5-15 [facility] Absolute lymphocyte counton 03-13-2022 Lymphocytes Auto (Unsp spec) [#/Vol] 2.39 10*3/uL 0.83-4.51 [facility] Work Phone: Basophil percentageon 2021 Basophils/100 WBC (Bld) 0.5 % 0-1 [facility] Work Phone: Chloride [Moles/Vol] 109 mmol/L 98-107 [facility] Work Phone: Eosinophils/100 WBC (Bld) 4.4 % 0-5 [facility] Work Phone: Glucose [Mass/Vol] 96 mg/dL 74-106 [facility] Work Phone: Neutrophils (Bld) [#/Vol] 4.6 10*3/uL 2.0-7.7 [facility] Work Phone: Neutrophils/100 WBC (Bld) 58.4 % 47-70 [facility] Work Phone: Potassium [Moles/Vol] 3.8 mmol/L 3.5-5.1 [facility] Work Phone: Sodium [Moles/Vol] 143 mmol/L 136-145 [facility] Work Phone: WBC (Bld) [#/Vol] 7.9 10*3/uL 4.4-11.0 [facility] Work Phone: Blood erythrocytes count (nu mber/volume)on 03-13-2022 RBC (Bld) [#/Vol] 4.75 10*6/uL 4.6-6.2 [facility] Work Phone: Blood hemoglobin measurement (mass/volume)on 03-13-2022 Hemoglobin (Bld) [Mass/Vol] 14.5 g/dL 13.0-16.5 [facility] Work Phone: Blood lymphocytes/100 leukoc yteson 03-13-2022 Lymphocytes/100 WBC (Bld) 30.1 % 19-41 [facility] Work Phone: Blood monocytes/100 leukocyt eson 03-13-2022 Monocytes/100 WBC (Bld) 6.3 % 0-10 [facility] Work Phone: Blood platelet mean volumeon 03-13-2022 Platelet mean volume (Bld) [Entitic vol] 9.4 fL 6.2-12.0 [facility] Work Phone: Determination of erythrocyte mean corpuscular volume (MCV)on 03-13-2022 MCV (RBC) [Entitic vol] 90.3 fL 80-94 [facility] Work Phone: Hematocrit Auto (Bld) [Volum e fraction]on 03-13-2022 Hematocrit (Bld) [Volume fraction] 42.9 % 40-54 [facility] Work Phone: Laboratory - Chemistry and C hemistry - challengeon 03-13-2022 CO2 [Moles/Vol] 28.0 mmol/L 21.0-32.0 [facility] Work Phone: Urea nitrogen/Creatinine [Mass ratio] 25.5 mg/mg 10-20 [facility] Work Phone: Laboratory - Hematology and Cell countson 03-13-2022 Erythrocyte distribution width (RBC) [Entitic vol] 41.1 fL 35.1-43.9 [facility] Work Phone: Erythrocyte distribution width (RBC) [Ratio] 12.4 % 11.6-14.6 [facility] Work Phone: Immature granulocytes/100 WBC (Bld) 0.300 % 0.0-0.9 [facility] Work Phone: Comment on above: IG% - Immature Granu locytes (promyelocytes, myelocytes and metamyelocytes) > 1% indicates that a LEFT SHIFT is Present. MCH (RBC) [Entitic mass] 30.5 pg 27.0-32.0 [facility] Work Phone: Nucleated RBC/100 WBC (Bld) [Ratio] 0 % 0-5 [facility] Work Phone: MCHC Auto (RBC) [Mass/Vol]on 03-13-2022 MCHC (RBC) [Mass/Vol] 33.8 g/dL 32-36 [facility] Work Phone: No Panel Informationon 03-13 Troponin I High Sensitivity 8 pg/mL 3.0-78.0 [facility] Work Phone: Comment on above: Please Note: New [place] t Units and Gender Specific Reference Ranges. For more information see Policy Stat Procedure [place] High Sensitivity Troponin (TNIH) and attachments. Estimated Creatinine Clearance Calc 81.69 ml/min [facility] Work Phone: Estimated GFR (MDRD) Amer 93 mL/min >60 [facility] Work Phone: Comment on above: GFR Calc Estimated GFR (MDRD) Non-Af Amer 77 mL/min >60 [facility] Work Phone: Comment on above: Non- GFR Calc Platelets bldon 03-13-2022 Platelets (Bld) [#/Vol] 204 10*3/uL 150-450 [facility] Work Phone: Serum or plasma calcium magda urement (mass/volume)on 03-13-2022 Calcium [Mass/Vol] 8.9 mg/dL 8.5-10.1 [facility] Work Phone: Serum or plasma creatinine m easurement (mass/volume)on 08-28-2022 Creatinine [Mass/Vol] 1.02 mg/dL 0.70-1.30 [facility] Work Phone: Comment on above: The validity of the calculated GFR & GFRAA in patients over 70 years has not been determined. Clinical correlation is essential. Serum or plasma urea nitroge n measurement (mass/volume)on 03-13-2022 Urea nitrogen [Mass/Vol] 26 mg/dL 7-18 [facility] Work Phone: Thin prep Papanicolaou smear with manual screeningon 03-13-2022 Thin prep Papanicolaou smear with manual screening 6 -15 [facility] Work Phone: XR CHEST PA AND LATERALon [...] segment of the left upper lobe. Normal [facility] CBC,PLATELETSon 09-05-2020 Hematocrit (Bld) [Volume fraction] 30.4 % Low 39.6-48.8 [facility] Comment on above: Performed By: #### L [id number] #### [facility] (DEFAULT) [address] [address] Hemoglobin (Bld) [Mass/Vol] 10.1 g/dL Low 13.4-16.8 [facility] Comment on above: Performed By: #### L [id number] #### [facility] (DEFAULT) [address] [address] MCV (RBC) [Entitic vol] 90.7 fL Normal 79.0-94.5 [facility] Comment on above: Performed By: #### L [id number] #### [facility] (DEFAULT) [address] [address] Mean Cell Hgb 30.1 pg Normal 26.1-33.3 [facility] Comment on above: Performed By: #### L [id number] #### [facility] (DEFAULT) [address] [address] Mean Cell Hgb Conc 33.2 g/dL Normal 31.9-36.5 [facility] Comment on above: Performed By: #### L [id number] #### [facility] (DEFAULT) [address] [address] Platelet mean volume (Bld) [Entitic vol] 9.9 fL Normal 8.7-12.3 [facility] Comment on above: Performed By: #### L [id number] #### [facility] (DEFAULT) [address] [address] Platelets (Bld) [#/Vol] 171 10*3/uL Normal 146-337 [facility] Comment on above: Performed By: #### L [id number] #### [facility] (DEFAULT) [address] [address] RBC (Bld) [#/Vol] 3.35 10*6/uL Low 4.38-5.83 [facility] Comment on above: Performed By: #### L [id number] #### [facility] (DEFAULT) [address] [address] RBC Distribution 12.7 % Normal 10.9-14.3 [facility] Comment on above: Performed By: #### L [id number] #### [facility] (DEFAULT) [address] [address] WBC (Bld) [#/Vol] 9.88 10*3/uL Normal 3.73-10.10 [facility] Comment on above: Performed By: #### L [id number] #### [facility] (DEFAULT) [address] [place] [address] CHEM 7 (LYTES,BUN,CREA,GLUC) on 09-05-2020 Anion gap [Moles/Vol] 10 mmol/L Normal 7-17 [facility] Comment on above: Performed By: #### L [id number] #### [facility] (DEFAULT) [address] [place] [address] Chloride [Moles/Vol] 106 mmol/L Normal 98-108 [facility] Comment on above: Performed By: #### L [id number] #### [facility] (DEFAULT) [address] [place] [address] CO2 [Moles/Vol] 26 mmol/L Normal 22-30 [facility] Comment on above: Performed By: #### L [id number] #### [facility] (DEFAULT) [address] [place] [address] Creatinine [Mass/Vol] 0.87 mg/dL Normal 0.70-1.30 [facility] Comment on above: Performed By: #### L [id number] #### [facility] (DEFAULT) [address] [place] [address] EST GFR, >=60 Normal >=60 [facility] Comment on above: Performed By: #### L [id number] #### [facility] (DEFAULT) [address] [place] [address] EST GFR,Non >=60 Normal >=60 [facility] Comment on above: Performed By: #### L [id number] #### [facility] (DEFAULT) [address] [place] [address] Glucose [Mass/Vol] 95 mg/dL Normal 70-99 [facility] Comment on above: Performed By: #### L [id number] #### [facility] (DEFAULT) [address] [place] [address] Osmolality [Osmolality] 291 mosm/kg Normal 278-305 [facility] Comment on above: Performed By: #### L [id number] #### [facility] (DEFAULT) [address] [place] [address] Potassium [Moles/Vol] 4.0 mmol/L Normal 3.5-5.0 [facility] Comment on above: Performed By: #### L [id number] #### [facility] (DEFAULT) [address] [place] [address] Sodium [Moles/Vol] 138 mmol/L Normal 133-143 [facility] Comment on above: Performed By: #### L [id number] #### [facility] (DEFAULT) [address] [place] [address] Urea nitrogen [Mass/Vol] 19 mg/dL Normal 7-22 [facility] Comment on above: Performed By: #### L [id number] #### [facility] (DEFAULT) [address] [place] [address] Urea nitrogen/Creatinine [Mass ratio] 22 mg/mg Normal [facility] Comment on above: Performed By: #### L [id number] #### [facility] (DEFAULT) [address] [place] [address] MAGNESIUMon 09-05-2020 Magnesium [Mass/Vol] 2.1 mg/dL Normal 1.6-2.6 [facility] Comment on above: Performed By: #### L [id number] #### [facility] (DEFAULT) [address] [place] [address] TYPE AND SCREENon 09-05-2020 ABO/RH(D) TYPE Positive Normal [facility] Comment on above: Performed By: #### X M #### [facility] (DEFAULT) [address] [place] [address] XR CHEST PORTABLEon 09-05-19 XR CHEST PORTABLE [...] Stable airspace disease in the lingula. Normal [facility] CBC,PLATELETSon 09-04-2020 Hematocrit (Bld) [Volume fraction] 30.0 % Low 39.6-48.8 [facility] Comment on above: Performed By: #### L [id number] #### [facility] (DEFAULT) [address] [address] Hemoglobin (Bld) [Mass/Vol] 9.9 g/dL Low 13.4-16.8 [facility] Comment on above: Performed By: #### L [id number] #### [facility] (DEFAULT) [address] [address] MCV (RBC) [Entitic vol] 90.1 fL Normal 79.0-94.5 [facility] Comment on above: Performed By: #### L [id number] #### [facility] (DEFAULT) [address] [address] Mean Cell Hgb 29.7 pg Normal 26.1-33.3 [facility] Comment on above: Performed By: #### L [id number] #### [facility] (DEFAULT) [address] [address] Mean Cell Hgb Conc 33.0 g/dL Normal 31.9-36.5 [facility] Comment on above: Performed By: #### L [id number] #### [facility] (DEFAULT) [address] [address] Platelet mean volume (Bld) [Entitic vol] 10.1 fL Normal 8.7-12.3 [facility] Comment on above: Performed By: #### L [id number] #### [facility] (DEFAULT) [address] [place] [address] Platelets (Bld) [#/Vol] 138 10*3/uL Low 146-337 [facility] Comment on above: Performed By: #### L [id number] #### [facility] (DEFAULT) [address] [place] [address] RBC (Bld) [#/Vol] 3.33 10*6/uL Low 4.38-5.83 [facility] Comment on above: Performed By: #### L [id number] #### [facility] (DEFAULT) [address] [place] [address] RBC Distribution 12.6 % Normal 10.9-14.3 [facility] Comment on above: Performed By: #### L [id number] #### [facility] (DEFAULT) [address] [place] [address] WBC (Bld) [#/Vol] 10.14 10*3/uL High 3.73-10.10 [facility] Comment on above: Performed By: #### L [id number] #### [facility] (DEFAULT) [address] [place] [address] CHEM 7 (LYTES,BUN,CREA,GLUC) on 09-04-2020 Anion gap [Moles/Vol] 9 mmol/L Normal 7-17 [facility] Comment on above: Performed By: #### L [id number] #### [facility] (DEFAULT) [address] [place] [address] Chloride [Moles/Vol] 106 mmol/L Normal 98-108 [facility] Comment on above: Performed By: #### L [id number] #### [facility] (DEFAULT) [address] [place] [address] CO2 [Moles/Vol] 28 mmol/L Normal 22-30 [facility] Comment on above: Performed By: #### L [id number] #### [facility] (DEFAULT) [address] [place] [address] Creatinine [Mass/Vol] 1.02 mg/dL Normal 0.70-1.30 [facility] Comment on above: Performed By: #### L [id number] #### [facility] (DEFAULT) [address] [place] [address] EST GFR, >=60 Normal >=60 [facility] Comment on above: Performed By: #### L [id number] #### [facility] (DEFAULT) [address] [place] [address] EST GFR,Non >=60 Normal >=60 [facility] Comment on above: Performed By: #### L [id number] #### [facility] (DEFAULT) [address] [place] [address] Glucose [Mass/Vol] 113 mg/dL High 70-99 [facility] Comment on above: Performed By: #### L [id number] #### [facility] (DEFAULT) [address] [place] [address] Osmolality [Osmolality] 294 mosm/kg Normal 278-305 [facility] Comment on above: Performed By: #### L [id number] #### [facility] (DEFAULT) [address] [place] [address] Potassium [Moles/Vol] 4.1 mmol/L Normal 3.5-5.0 [facility] Comment on above: Performed By: #### L [id number] #### [facility] (DEFAULT) [address] [place] [address] Sodium [Moles/Vol] 139 mmol/L Normal 133-143 [facility] Comment on above: Performed By: #### L [id number] #### [facility] (DEFAULT) [address] [place] [address] Urea nitrogen [Mass/Vol] 18 mg/dL Normal 7-22 [facility] Comment on above: Performed By: #### L [id number] #### [facility] (DEFAULT) [address] [place] [address] Urea nitrogen/Creatinine [Mass ratio] 18 mg/mg Normal [facility] Comment on above: Performed By: #### L [id number] #### [facility] (DEFAULT) [address] [place] [address] MAGNESIUMon 09-04-2020 Magnesium [Mass/Vol] 1.9 mg/dL Normal 1.6-2.6 [facility] Comment on above: Performed By: #### L [id number] #### [facility] (DEFAULT) [address] [place] [address] XR CHEST PORTABLEon 09-04-19 XR CHEST PORTABLE [...] removal of 2 left-sided chest tubes. Normal [facility] XR CHEST PORTABLE EXAM: XR CHEST PORTABLE, [...] decreased in size compared to prior. Normal [facility] CBC,PLATELETSon 09-03-2020 Hematocrit (Bld) [Volume fraction] 30.3 % Low 39.6-48.8 [facility] Comment on above: Performed By: #### H EMOGC ####[facility] (DEFAULT)[address] [place] [address] Hemoglobin (Bld) [Mass/Vol] 10.2 g/dL Low 13.4-16.8 [facility] Comment on above: Performed By: #### H EMOGC ####[facility] (DEFAULT)[address] [place] [address], [place] [address] MCV (RBC) [Entitic vol] 89.6 fL Normal 79.0-94.5 [facility] Comment on above: Performed By: #### H EMOGC ####[facility] (DEFAULT)[address] [facility] [place] [address] Mean Cell Hgb 30.2 pg Normal 26.1-33.3 [facility] Comment on above: Performed By: #### H EMOGC ####[facility] (DEFAULT)[address] [facility] [place] [address] Mean Cell Hgb Conc 33.7 g/dL Normal 31.9-36.5 [facility] Comment on above: Performed By: #### H EMOGC ####[facility] (DEFAULT)[address] [place] [address] Platelet mean volume (Bld) [Entitic vol] 10.0 fL Normal 8.7-12.3 [facility] Comment on above: Performed By: #### H EMOGC ####[facility] (DEFAULT)[address] [facility] [place] [address] Platelets (Bld) [#/Vol] 143 10*3/uL Low 146-337 [facility] Comment on above: Performed By: #### H EMOGC ####[facility] (DEFAULT)[address] [facility] [place] [address] RBC (Bld) [#/Vol] 3.38 10*6/uL Low 4.38-5.83 [facility] Comment on above: Performed By: #### H EMOGC ####[facility] (DEFAULT)[address] [place] [address] RBC Distribution 12.8 % Normal 10.9-14.3 [facility] Comment on above: Performed By: #### H EMOGC ####[facility] (DEFAULT)[address] [facility] [place] [address] WBC (Bld) [#/Vol] 13.08 10*3/uL High 3.73-10.10 [facility] Comment on above: Performed By: #### H EMOGC ####[facility] (DEFAULT)[address] [facility] [place] [address] CHEM 7 (LYTES,BUN,CREA,GLUC) on 09-03-2020 Anion gap [Moles/Vol] 10 mmol/L Normal 7-17 [facility] Comment on above: Performed By: #### C HM7, MGO ####[facility] (DEFAULT)[address] [facility] [place] [address] Chloride [Moles/Vol] 110 mmol/L High 98-108 [facility] Comment on above: Performed By: #### C HM7, MGO ####[facility] (DEFAULT)[address] [facility] [place] [address] CO2 [Moles/Vol] 24 mmol/L Normal 22-30 [facility] Comment on above: Performed By: #### C HM7, MGO ####[facility] (DEFAULT)[address] [place] [address] Creatinine [Mass/Vol] 0.74 mg/dL Normal 0.70-1.30 [facility] Comment on above: Performed By: #### C HM7, MGO ####[facility] (DEFAULT)[address] [place] [address] EST GFR, >=60 Normal >=60 [facility] Comment on above: Performed By: #### C HM7, MGO ####[facility] (DEFAULT)[address] [place] [address] EST GFR,Non >=60 Normal >=60 [facility] Comment on above: Performed By: #### C HM7, MGO ####[facility] (DEFAULT)[address] [place] [address] Glucose [Mass/Vol] 137 mg/dL High 70-99 [facility] Comment on above: Performed By: #### C HM7, MGO ####[facility] (DEFAULT)[address] [place] [address] Osmolality [Osmolality] 296 mosm/kg Normal 278-305 [facility] Comment on above: Performed By: #### C HM7, MGO ####[facility] (DEFAULT)[address] [place] [address] Potassium [Moles/Vol] 4.6 mmol/L Normal 3.5-5.0 [facility] Comment on above: Performed By: #### C HM7, MGO ####[facility] (DEFAULT)[address] [place] [address] Sodium [Moles/Vol] 139 mmol/L Normal 133-143 [facility] Comment on above: Performed By: #### C HM7, MGO ####[facility] (DEFAULT)[address] [place] [address] Urea nitrogen [Mass/Vol] 16 mg/dL Normal 7-22 [facility] Comment on above: Performed By: #### C HM7, MGO ####[facility] (DEFAULT)[address] [facility] [place] [address] Urea nitrogen/Creatinine [Mass ratio] 22 mg/mg Normal [facility] Comment on above: Performed By: #### C HM7, MGO ####[facility] (DEFAULT)[address] [place] [address] IONIZED CALCIUM, INPATIENTon 09-03-2020 ICA 4.46 mg/dL Low 4.60-5.30 [facility] Comment on above: Order Comment: Viral transport media (light armored reconnaissance officer with pink fluid) or BAL specimen - Collection must be done while wearing N-95 mask, eye protection, gown and gloves. Please label ALL specimens as 2019-nCoV rule out and deliver by hand. This test was performed using Installment [employer] Mediated Amplification and has been approved as Emergency Use Authorization (EUA) for the qualitative detection of SARS-CoV-2 nucleic acid. Performed By: #### L [id number] #### [facility] (DEFAULT) [address] [place] [address] MAGNESIUMon 09-03-2020 Magnesium [Mass/Vol] 2.1 mg/dL Normal 1.6-2.6 [facility] Comment on above: Performed By: #### C HM7, MGO ####[facility] (DEFAULT)[address] [place] [address] PT,INR,PTTon 09-03-2020 aPTT Coag (Bld) [Time] 33.6 s Normal 24.0-34.3 [facility] Comment on above: Performed By: #### P TPTT ####[facility] (DEFAULT)[address] [place] [address] INR Coag (PPP) [Relative time] 1.4 {INR} High 0.9-1.1 [facility] Comment on above: Performed By: #### P TPTT ####[facility] (DEFAULT)[address] [place] [address] PT Coag (PPP) [Time] 17.3 s High 11.9-14.2 [facility] Comment on above: Performed By: #### P TPTT ####[facility] (DEFAULT)[address] [place] [address]682 XR CHEST PORTABLEon 09-03-19 XR CHEST PORTABLE [...] disease in the lower left lung. Normal [facility] CBC,PLATELETSon 09-02-2020 Hematocrit (Bld) [Volume fraction] 31.7 % Low 39.6-48.8 [facility] Comment on above: Performed By: #### H [facility] ####[facility] (DEFAULT)[address] [place] [address] Hemoglobin (Bld) [Mass/Vol] 10.9 g/dL Low 13.4-16.8 [facility] Comment on above: Performed By: #### H [facility] ####[facility] (DEFAULT)[address] [place] [address] MCV (RBC) [Entitic vol] 88.3 fL Normal 79.0-94.5 [facility] Comment on above: Performed By: #### H [facility] ####[facility] (DEFAULT)[address] [place] [address] Mean Cell Hgb 30.4 pg Normal 26.1-33.3 [facility] Comment on above: Performed By: #### H EMOGC ####[facility] (DEFAULT)[address] [facility] [place] [address] Mean Cell Hgb Conc 34.4 g/dL Normal 31.9-36.5 [facility] Comment on above: Performed By: #### H EMOGC ####[facility] (DEFAULT)[address] [facility] [place] [address] Platelet mean volume (Bld) [Entitic vol] 9.6 fL Normal 8.7-12.3 [facility] Comment on above: Performed By: #### H EMOGC ####[facility] (DEFAULT)[address] [place] [address] Platelets (Bld) [#/Vol] 151 10*3/uL Normal 146-337 [facility] Comment on above: Performed By: #### H EMOGC ####[facility] (DEFAULT)[address] [facility] [place] [address] RBC (Bld) [#/Vol] 3.59 10*6/uL Low 4.38-5.83 [facility] Comment on above: Performed By: #### H EMOGC ####[facility] (DEFAULT)[address] [place] [address] RBC Distribution 12.6 % Normal 10.9-14.3 [facility] Comment on above: Performed By: #### H EMOGC ####[facility] (DEFAULT)[address] [place] [address] WBC (Bld) [#/Vol] 12.83 10*3/uL High 3.73-10.10 [facility] Comment on above: Performed By: #### H EMOGC ####[facility] (DEFAULT)[address] [facility] [place] [address] CHEM 7 (LYTES,BUN,CREA,GLUC) on 09-02-2020 Anion gap [Moles/Vol] 11 mmol/L Normal 7-17 [facility] Comment on above: Performed By: #### X M #### [facility] (DEFAULT) [address] [place] [address] Chloride [Moles/Vol] 110 mmol/L High 98-108 [facility] Comment on above: Performed By: #### X M #### [facility] (DEFAULT) [address] [place] [address] CO2 [Moles/Vol] 24 mmol/L Normal 22-30 [facility] Comment on above: Performed By: #### X M #### [facility] (DEFAULT) [address] [place] [address] Creatinine [Mass/Vol] 0.81 mg/dL Normal 0.70-1.30 [facility] Comment on above: Performed By: #### X M #### [facility] (DEFAULT) [address] [place] [address] EST GFR, >=60 Normal >=60 [facility] Comment on above: Performed By: #### X M #### [facility] (DEFAULT) [address] [place] [address] EST GFR,Non >=60 Normal >=60 [facility] Comment on above: Performed By: #### X M #### [facility] (DEFAULT) [address] [place] [address] Glucose [Mass/Vol] 128 mg/dL High 70-99 [facility] Comment on above: Performed By: #### X M #### [facility] (DEFAULT) [address] [place] [address] Osmolality [Osmolality] 298 mosm/kg Normal 278-305 [facility] Comment on above: Performed By: #### X M #### [facility] (DEFAULT) [address] [place] [address] Potassium [Moles/Vol] 5.0 mmol/L Normal 3.5-5.0 [facility] Comment on above: Performed By: #### X M #### [facility] (DEFAULT) [address] [place] [address] Sodium [Moles/Vol] 140 mmol/L Normal 133-143 [facility] Comment on above: Performed By: #### X M #### [facility] (DEFAULT) [address] [place] [address] Urea nitrogen [Mass/Vol] 18 mg/dL Normal 7-22 [facility] Comment on above: Performed By: #### X M #### [facility] (DEFAULT) [address] [place] [address] Urea nitrogen/Creatinine [Mass ratio] 22 mg/mg Normal [facility] Comment on above: Performed By: #### X M #### [facility] (DEFAULT) [address] [place] [address]647 HEMOGLOBIN & HEMATOCRITon Hematocrit (Bld) [Volume fraction] 32.5 % Low 39.6-48.8 [facility] Comment on above: Order Comment: If ch est tube output greater than 200 mL/hour for 2 consecutive hours (send coags simultaneously) Performed By: #### H H ####[facility] (DEFAULT)[address] [place] [address] Hemoglobin (Bld) [Mass/Vol] 11.0 g/dL Low 13.4-16.8 [facility] Comment on above: Order Comment: If ch est tube output greater than 200 mL/hour for 2 consecutive hours (send coags simultaneously) Performed By: #### H H ####[facility] (DEFAULT)[address] [place] [address] Hematocrit (Bld) [Volume fraction] 33.2 % Low 39.6-48.8 [facility] Comment on above: Order Comment: As di ctated by lab values and replacement therapy Performed By: #### X M #### [facility] (DEFAULT) [address] [place] [address]409 Hemoglobin (Bld) [Mass/Vol] 11.0 g/dL Low 13.4-16.8 [facility] Comment on above: Order Comment: As di ctated by lab values and replacement therapy Performed By: #### X M #### [facility] (DEFAULT) [address] [place] [address]45 IONIZED CALCIUM, INPATIENTon 09-02-2020 ICA 4.63 mg/dL Normal 4.60-5.30 [facility] Comment on above: Order Comment: Pleas e draw daily with [facility] chemistry lab while patient is ICU status.Obtain if patient has new onset of atrial fibrillation with a Heart Rate greater than 110, and as dictated by patient serum electrolyte values and replacement therapy. Performed By: #### I CA ####[facility] (DEFAULT)[address] [place] [address] MAGNESIUMon 09-02-2020 Magnesium [Mass/Vol] 3.0 mg/dL High 1.6-2.6 [facility] Comment on above: Order Comment: Draw lab 8 hours after arrival Performed By: #### X M #### [facility] (DEFAULT) [address] [place] [address] 30407 Magnesium [Mass/Vol] 2.0 mg/dL Normal 1.6-2.6 [facility] Comment on above: Performed By: #### X M #### [facility] (DEFAULT) [address] [place] [address] 12063 PT,INR,PTTon 09-02-2020 aPTT Coag (Bld) [Time] 30.0 s Normal 24.0-34.3 [facility] Comment on above: Performed By: #### P TPTT ####[facility] (DEFAULT)[address] [place] [address]708 INR Coag (PPP) [Relative time] 1.4 {INR} High 0.9-1.1 [facility] Comment on above: Performed By: #### P TPTT ####[facility] (DEFAULT)[address] [place] [address] 11844 PT Coag (PPP) [Time] 16.7 s High 11.9-14.2 [facility] Comment on above: Performed By: #### P TPTT ####[facility] (DEFAULT)[address] [place] [address] 02167 XR CHEST PORTABLEon 09-02-19 XR CHEST PORTABLE [...] may be atelectasis versus airspace disease. Normal [facility] ABORH TYPE RECONFIRMATIONon 09-01-2020 ABO/RH(D) TYPE Positive Normal [facility] Comment on above: Performed By: #### T YPEC ####[facility] (DEFAULT)[address] [place] [address] 43687 CBC,PLATELETSon 09-01-2020 Hematocrit (Bld) [Volume fraction] 34.7 % Low 39.6-48.8 [facility] Comment on above: Performed By: #### H EMO ####[facility] (DEFAULT)[address] [place] [address] 32031 Hemoglobin (Bld) [Mass/Vol] 11.4 g/dL Low 13.4-16.8 [facility] Comment on above: Performed By: #### H EMO ####[facility] (DEFAULT)[address] [place] [address] MCV (RBC) [Entitic vol] 91.6 fL Normal 79.0-94.5 [facility] Comment on above: Performed By: #### H EMOGC ####[facility] (DEFAULT)[address] [place] [address] Mean Cell Hgb 30.1 pg Normal 26.1-33.3 [facility] Comment on above: Performed By: #### H EMOGC ####[facility] (DEFAULT)[address] [facility] [place] [address] Mean Cell Hgb Conc 32.9 g/dL Normal 31.9-36.5 [facility] Comment on above: Performed By: #### H EMOGC ####[facility] (DEFAULT)[address] [facility] [place] [address] Platelet mean volume (Bld) [Entitic vol] 9.5 fL Normal 8.7-12.3 [facility] Comment on above: Performed By: #### H EMOGC ####[facility] (DEFAULT)[address] [facility] [place] [address] Platelets (Bld) [#/Vol] 184 10*3/uL Normal 146-337 [facility] Comment on above: Performed By: #### H EMOGC ####[facility] (DEFAULT)[address] [facility] [place] [address] RBC (Bld) [#/Vol] 3.79 10*6/uL Low 4.38-5.83 [facility] Comment on above: Performed By: #### H EMOGC ####[facility] (DEFAULT)[address] [facility] [place] [address] RBC Distribution 12.3 % Normal 10.9-14.3 [facility] Comment on above: Performed By: #### H EMOGC ####[facility] (DEFAULT)[address] [facility] [place] [address] WBC (Bld) [#/Vol] 17.94 10*3/uL High 3.73-10.10 [facility] Comment on above: Performed By: #### H [facility] ####[facility] (DEFAULT)[address] [place] [address]19 CHEM 7 (LYTES,BUN,CREA,GLUC) on 09-01-2020 Anion gap [Moles/Vol] 15 mmol/L Normal 7-17 [facility] Comment on above: Performed By: #### X M #### [facility] (DEFAULT) [address] [place] [address] 44919 Chloride [Moles/Vol] 111 mmol/L High 98-108 [facility] Comment on above: Performed By: #### X M #### [facility] (DEFAULT) [address] [place] [address] 26414 CO2 [Moles/Vol] 22 mmol/L Normal 22-30 [facility] Comment on above: Performed By: #### X M #### [facility] (DEFAULT) [address] [place] [address] 45225 Creatinine [Mass/Vol] 0.81 mg/dL Normal 0.70-1.30 [facility] Comment on above: Performed By: #### X M #### [facility] (DEFAULT) [address] [place] [address] 19854 EST GFR, >=60 Normal >=60 [facility] Comment on above: Performed By: #### X M #### [facility] (DEFAULT) [address] [place] [address] 06111 EST GFR,Non >=60 Normal >=60 [facility] Comment on above: Performed By: #### X M #### [facility] (DEFAULT) [address] [place] [address]146 Glucose [Mass/Vol] 200 mg/dL High 70-99 [facility] Comment on above: Performed By: #### X M #### [facility] (DEFAULT) [address] [place] [address] 42413 Osmolality [Osmolality] 308 mosm/kg High 278-305 [facility] Comment on above: Performed By: #### X M #### [facility] (DEFAULT) [address] [place] [address] 28362 Potassium [Moles/Vol] 3.5 mmol/L Normal 3.5-5.0 [facility] Comment on above: Performed By: #### X M #### [facility] (DEFAULT) [address] [place] [address] 40273 Sodium [Moles/Vol] 144 mmol/L High 133-143 [facility] Comment on above: Performed By: #### X M #### [facility] (DEFAULT) [address] [place] [address] 35098 Urea nitrogen [Mass/Vol] 20 mg/dL Normal 7-22 [facility] Comment on above: Performed By: #### X M #### [facility] (DEFAULT) [address] [place] [address] 68760 Urea nitrogen/Creatinine [Mass ratio] 25 mg/mg Normal [facility] Comment on above: Performed By: #### X M #### [facility] (DEFAULT) [address] [place] [address] 14612 FIBRINOGEN, CLOTTABLEon 08-17 Fibrinogen-Clottable 192 mg/dL Low 220-410 [facility] Comment on above: Performed By: #### P TPTT, FIB ####[facility] (DEFAULT)[address] [place] [address] 42565 IONIZED CALCIUM, INPATIENTon 09-01-2020 ICA 5.06 mg/dL Normal 4.60-5.30 [facility] Comment on above: Performed By: #### I CA ####[facility] (DEFAULT)[address] [place] [address] 81157 LACTATE, BLOODon 09-01-2020 Lactate, Blood 1.2 mmol/L Normal 0.5-1.6 [facility] Comment on above: Performed By: #### L [id number] #### [facility] (DEFAULT) [address] [place] [address] 63652 MAGNESIUMon 09-01-2020 Magnesium [Mass/Vol] 2.3 mg/dL Normal 1.6-2.6 [facility] Comment on above: Performed By: #### L [id number] #### [facility] (DEFAULT) [address] [place] [address] 90975 Magnesium [Mass/Vol] 1.7 mg/dL Normal 1.6-2.6 [facility] Comment on above: Performed By: #### X M #### [facility] (DEFAULT) [address] [place] [address] 46791 PHOSPHATE, INORGANICon 09-01 Phosphorous 4.4 mg/dL Normal 2.2-4.6 [facility] Comment on above: Performed By: #### X M #### [facility] (DEFAULT) [address] [place] [address] 43474 POTASSIUMon 09-01-2020 Potassium [Moles/Vol] 4.9 mmol/L Normal 3.5-5.0 [facility] Comment on above: Performed By: #### L [id number] #### [facility] (DEFAULT) [address] [place] [address] 30657 PT,INR,PTTon 09-01-2020 aPTT Coag (Bld) [Time] 27.9 s Normal 24.0-34.3 [facility] Comment on above: Performed By: #### P TPTT, FIB ####[facility] (DEFAULT)[address] [place] [address] 53275 INR Coag (PPP) [Relative time] 1.4 {INR} High 0.9-1.1 [facility] Comment on above: Performed By: #### P TPTT, FIB ####[facility] (DEFAULT)[address] [place] [address] 34840 PT Coag (PPP) [Time] 17.3 s High 11.9-14.2 [facility] Comment on above: Performed By: #### P TPTT, FIB ####[facility] (DEFAULT)[address] [place] [address] 21186 XR CHEST PORTABLEon 09-01-19 XR CHEST PORTABLE [...] PVH IMPRESSION: No acute cardiopulmonary disease. Normal [facility] CALCIUMon 08-27-2020 Calcium [Mass/Vol] 9.1 mg/dL Normal 8.6-10.5 [facility] Comment on above: Performed By: #### C HM7, CA, HDLT, MGO, HFP, IPB ####[facility] (DEFAULT)[address] [place] [address] 62817 CBC AND ELECTRONIC DIFFon Basophils (Bld) [#/Vol] 0.04 10*3/uL Normal 0.00-0.09 [facility] Comment on above: Performed By: #### L [id number] ####[facility] (DEFAULT)[address] [place] [address] 44122 Basophils/100 WBC (Bld) 0.6 % Normal [facility] Comment on above: Performed By: #### L [id number] ####[facility] (DEFAULT)[address] [place] [address] 47212 DIFF STATUS Electronic Differential Normal [facility] Comment on above: Performed By: #### L AB980 ####[facility] (DEFAULT)[address] [place] [address] 85384 Eosinophils (Bld) [#/Vol] 0.26 10*3/uL Normal 0.00-0.48 [facility] Comment on above: Performed By: #### L AB980 ####[facility] (DEFAULT)[address] [place] [address] 16418 Eosinophils/100 WBC (Bld) 4.0 % Normal [facility] Comment on above: Performed By: #### L AB980 ####[facility] (DEFAULT)[address] [place] [address] 44849 Hematocrit (Bld) [Volume fraction] 44.8 % Normal 39.6-48.8 [facility] Comment on above: Performed By: #### L [id number] ####[facility] (DEFAULT)[address] [place] [id number] Hemoglobin (Bld) [Mass/Vol] 14.5 g/dL Normal 13.4-16.8 [facility] Comment on above: Performed By: #### L [id number] ####[facility] (DEFAULT)[address] [place] [address] Immature Grans % 0.2 % Normal [facility] Comment on above: Performed By: #### L [id number] ####[facility] (DEFAULT)[address] [place] [address] Immature Grans Absolute <0.04 Normal <=0.08 [facility] Comment on above: Performed By: #### L [id number] ####[facility] (DEFAULT)[address] [place] [address] Lymphocytes (Bld) [#/Vol] 1.76 10*3/uL Normal 0.83-3.57 [facility] Comment on above: Performed By: #### L AB980 ####[facility] (DEFAULT)[address] [place] [address] Lymphocytes/100 WBC (Bld) 27.1 % Normal [facility] Comment on above: Performed By: #### L AB980 ####[facility] (DEFAULT)[address] [place] [address] MCV (RBC) [Entitic vol] 91.4 fL Normal 79.0-94.5 [facility] Comment on above: Performed By: #### L AB980 ####[facility] (DEFAULT)[address] [facility] [place] [address] Mean Cell Hgb 29.6 pg Normal 26.1-33.3 [facility] Comment on above: Performed By: #### L AB980 ####[facility] (DEFAULT)[address] [place] [address] Mean Cell Hgb Conc 32.4 g/dL Normal 31.9-36.5 [facility] Comment on above: Performed By: #### L AB980 ####[facility] (DEFAULT)[address] [facility] [place] [address] Monocytes (Bld) [#/Vol] 0.45 10*3/uL Normal 0.24-0.93 [facility] Comment on above: Performed By: #### L AB980 ####[facility] (DEFAULT)[address] [facility] [place] [address] Monocytes/100 WBC (Bld) 6.9 % Normal [facility] Comment on above: Performed By: #### L AB980 ####[facility] (DEFAULT)[address] [place] [address] Nucleated RBC 0.0 /100 WBC Normal <=0.2 [facility] Comment on above: Performed By: #### L [id number] ####[facility] (DEFAULT)[address] [facility] [place] [address] Platelet mean volume (Bld) [Entitic vol] 9.8 fL Normal 8.7-12.3 [facility] Comment on above: Performed By: #### L [id number] ####[facility] (DEFAULT)[address] [place] [address] Platelets (Bld) [#/Vol] 217 10*3/uL Normal 146-337 [facility] Comment on above: Performed By: #### L AB980 ####[facility] (DEFAULT)[address] [facility] [place] [address] RBC (Bld) [#/Vol] 4.90 10*6/uL Normal 4.38-5.83 [facility] Comment on above: Performed By: #### L AB980 ####[facility] (DEFAULT)[address] [facility] [place] [address] RBC Distribution 12.5 % Normal 10.9-14.3 [facility] Comment on above: Performed By: #### L AB980 ####[facility] (DEFAULT)[address] [facility] [place] [address] Segs + Bands Auto 61.2 % Normal [facility] Comment on above: Performed By: #### L AB980 ####[facility] (DEFAULT)[address] [facility] [place] [address] Segs + Bands,Absolute Auto 3.98 K/uL Normal 1.57-6.19 [facility] Comment on above: Performed By: #### L AB980 ####[facility] (DEFAULT)[address] [facility] [place] [address] WBC (Bld) [#/Vol] 6.50 10*3/uL Normal 3.73-10.10 [facility] Comment on above: Performed By: #### L AB980 ####[facility] (DEFAULT)[address] [facility] [place] [address] CHEM 7 (LYTES,BUN,CREA,GLUC) on 08-27-2020 Anion gap [Moles/Vol] 10 mmol/L Normal 7-17 [facility] Comment on above: Performed By: #### C HM7, CA, HDLT, MGO, HFP, IPB ####[facility] (DEFAULT)[address] [place] [address] Chloride [Moles/Vol] 109 mmol/L High 98-108 [facility] Comment on above: Performed By: #### C HM7, CA, HDLT, MGO, HFP, IPB ####[facility] (DEFAULT)[address] [place] [address] CO2 [Moles/Vol] 27 mmol/L Normal 22-30 [facility] Comment on above: Performed By: #### C HM7, CA, HDLT, MGO, HFP, IPB ####[facility] (DEFAULT)[address] [facility] [place] [address] Creatinine [Mass/Vol] 0.91 mg/dL Normal 0.70-1.30 [facility] Comment on above: Performed By: #### C HM7, CA, HDLT, MGO, HFP, IPB ####[facility] (DEFAULT)[address] [place] [address] EST GFR, >=60 Normal >=60 [facility] Comment on above: Performed By: #### C HM7, CA, HDLT, MGO, HFP, IPB ####[facility] (DEFAULT)[address] [facility] [place] [address] EST GFR,Non >=60 Normal >=60 [facility] Comment on above: Performed By: #### C HM7, CA, HDLT, MGO, HFP, IPB ####[facility] (DEFAULT)[address] [place] [address] Glucose [Mass/Vol] 96 mg/dL Normal 70-99 [facility] Comment on above: Performed By: #### C HM7, CA, HDLT, MGO, HFP, IPB ####[facility] (DEFAULT)[address] [facility] [place] [address] Osmolality [Osmolality] 297 mosm/kg Normal 278-305 [facility] Comment on above: Performed By: #### C HM7, CA, HDLT, MGO, HFP, IPB ####[facility] (DEFAULT)[address] [place] [address] Potassium [Moles/Vol] 5.2 mmol/L High 3.5-5.0 [facility] Comment on above: Performed By: #### C HM7, CA, HDLT, MGO, HFP, IPB ####[facility] (DEFAULT)[address] [facility] [place] [address] Sodium [Moles/Vol] 141 mmol/L Normal 133-143 [facility] Comment on above: Performed By: #### C HM7, CA, HDLT, MGO, HFP, IPB ####[facility] (DEFAULT)[address] [facility] [place] [address] Urea nitrogen [Mass/Vol] 15 mg/dL Normal 7-22 [facility] Comment on above: Performed By: #### C HM7, CA, HDLT, MGO, HFP, IPB ####[facility] (DEFAULT)[address] [facility] [place] [address] Urea nitrogen/Creatinine [Mass ratio] 16 mg/mg Normal [facility] Comment on above: Performed By: #### C HM7, CA, HDLT, MGO, HFP, IPB ####[facility] (DEFAULT)[address] [facility] [place] [address] FIBRINOGEN, CLOTTABLEon - Fibrinogen-Clottable 295 mg/dL Normal 220-410 [facility] Comment on above: Performed By: #### P TPTT, FIB ####[facility] (DEFAULT)[address] [place] [address] HEMOGLOBIN A1Con 08-27-2020 Glucose [Mass/Vol] 114 mg/dL Normal [facility] Comment on above: Performed By: #### A 1CB ####[facility] (DEFAULT)[address] [facility] [place] [address] HbA1c (Bld) [Mass fraction] 5.6 % Normal 4.7-5.6 [facility] Comment on above: Performed By: #### A 1CB ####[facility] (DEFAULT)[address] [facility] [place] [address] HEPATIC FUNCTION PANELon Albumin [Mass/Vol] 4.1 g/dL Normal 3.5-5.0 [facility] Comment on above: Performed By: #### C HM7, CA, HDLT, MGO, HFP, IPB ####[facility] (DEFAULT)[address] [facility] [place] [address] ALP [Catalytic activity/Vol] 91 U/L Normal 32-126 [facility] Comment on above: Performed By: #### C HM7, CA, HDLT, MGO, HFP, IPB ####[facility] (DEFAULT)[address] [facility] [place] [address] ALT [Catalytic activity/Vol] 45 U/L Normal 10-52 [facility] Comment on above: Performed By: #### C HM7, CA, HDLT, MGO, HFP, IPB ####[facility] (DEFAULT)[address] [facility] [place] [address] AST [Catalytic activity/Vol] 28 U/L Normal 14-40 [facility] Comment on above: Performed By: #### C HM7, CA, HDLT, MGO, HFP, IPB ####[facility] (DEFAULT)[address] [facility] [place] [address] Bilirubin [Mass/Vol] 0.7 mg/dL Normal <1.5 [facility] Comment on above: Performed By: #### C HM7, CA, HDLT, MGO, HFP, IPB ####[facility] (DEFAULT)[address] [place] [address] Bilirubin.indirect [Mass/Vol] 0.2 mg/dL Normal <0.3 [facility] Comment on above: Performed By: #### C HM7, CA, HDLT, MGO, HFP, IPB ####[facility] (DEFAULT)[address] [place] [address] Protein [Mass/Vol] 6.6 g/dL Normal 6.4-8.3 [facility] Comment on above: Performed By: #### C HM7, CA, HDLT, MGO, HFP, IPB ####[facility] (DEFAULT)[address] [place] [address] LIPID PANEL W CALCULATED LDL on 08-27-2020 Calculated LDL Cholesterol 33 mg/dL Normal 0-99 [facility] Comment on above: Result Comment: [<10 0 mg/dL: Optimal] [100-129 mg/dL: Near Optimal] [130-159 mg/dL: Borderline High] [160-189 mg/dL: High] [>189 mg/dL: Very High] Performed By: #### C HM7, CA, HDLT, MGO, HFP, IPB ####[facility] (DEFAULT)[address] [place] [address] Cholesterol [Mass/Vol] 100 mg/dL Normal <200 [facility] Comment on above: Result Comment: [<20 0 mg/dL: Desirable] [200-239 mg/dL: Borderline High] [>239 mg/dL: High] Performed By: #### C HM7, CA, HDLT, MGO, HFP, IPB ####[facility] (DEFAULT)[address] [place] [address] Cholesterol in HDL [Mass/Vol] 53 mg/dL Normal >=40 [facility] Comment on above: Result Comment: [<40 mg/dL: Low (High Risk)] [>59 mg/dL: High (Low Risk)] Performed By: #### C HM7, CA, HDLT, MGO, HFP, IPB ####[facility] (DEFAULT)[address] [place] [address]655 Non HDL Cholesterol 47 mg/dL Normal <130 [facility] Comment on above: Performed By: #### C HM7, CA, HDLT, MGO, HFP, IPB ####[facility] (DEFAULT)[address] [place] [address] Total Cholesterol/HDL Ratio 1.9 Normal <4.5 [facility] Comment on above: Performed By: #### C HM7, CA, HDLT, MGO, HFP, IPB ####[facility] (DEFAULT)[address] [place] [address] Triglyceride [Mass/Vol] 68 mg/dL Normal <150 [facility] Comment on above: Result Comment: [<15 0 mg/dL: Desirable] [150-199 mg/dL: Borderline] [200-499 mg/dL: High] [>500 mg/dL: Very High] Performed By: #### C HM7, CA, HDLT, MGO, HFP, IPB ####[facility] (DEFAULT)[address] [place] [address] MAGNESIUMon 08-27-2020 Magnesium [Mass/Vol] 2.1 mg/dL Normal 1.6-2.6 [facility] Comment on above: Performed By: #### C HM7, CA, HDLT, MGO, HFP, IPB ####[facility] (DEFAULT)[address] [place] [address] NOVEL CORONAVIRUS PCRon 08-17 SARS-CoV-2 (COVID-19) RNA NKECHI+probe Ql (Unsp spec) Not detected Normal NOT DETECTED [facility] Comment on above: Order Comment: Viral transport media (light armored reconnaissance officer with pink fluid) or BAL specimen - Collection must be done while wearing N-95 mask, eye protection, gown and gloves. Please label ALL specimens as 2019-nCoV rule out and deliver by hand. This test was performed using Installment [employer] and has been approved as [...] deteriorating. Performed By: #### L [id number] #### [facility] (DEFAULT) [address] [place] [address] PHOSPHATE, INORGANICon 08-27 Phosphorous 3.0 mg/dL Normal 2.2-4.6 [facility] Comment on above: Performed By: #### C HM7, CA, HDLT, MGO, HFP, IPB ####[facility] (DEFAULT)[address] [place] [address], [place] [address] PT,INR,PTTon 08-27-2020 aPTT Coag (Bld) [Time] 28.3 s Normal 24.0-34.3 [facility] Comment on above: Performed By: #### P TPTT, FIB ####[facility] (DEFAULT)[address] [place] [address], [place] [address] INR Coag (PPP) [Relative time] 1.1 {INR} Normal 0.9-1.1 [facility] Comment on above: Performed By: #### P TPTT, FIB ####[facility] (DEFAULT)[address] [place] [address], [place] [address] PT Coag (PPP) [Time] 14.0 s Normal 11.9-14.2 [facility] Comment on above: Performed By: #### P TPTT, FIB ####[facility] (DEFAULT)[address] [place] [address] T3 FREEon 08-27-2020 Free T3 [Mass/Vol] 3.7 pg/mL Normal 2.3-4.2 [facility] Comment on above: Performed By: #### X M #### [facility] (DEFAULT) [address] [place] [address] T4 FREEon 08-27-2020 Free T4 [Mass/Vol] 0.96 ng/dL Normal 0.89-1.76 [facility] Comment on above: Performed By: #### X M #### [facility] (DEFAULT) [address] [place] [address] TSHon 08-27-2020 TSH 1.013 uIU/mL Normal 0.550-4.780 [facility] Comment on above: Performed By: #### X M #### [facility] (DEFAULT) [address] [address] TYPE AND SCREEN - PREADMISSI ONon 08-27-2020 ABO/RH(D) TYPE Positive Normal [facility] Comment on above: Performed By: #### X MPO #### [facility] (DEFAULT) [address] [address] CNOVon 07-01-2019 CNOV Office Visit (OTOLMN) YUAN SMITH ([id number]) 1950 M Date Time Provider Department 07/01/19 [...] (Hcc) PAST MEDICAL HISTORY Diagnosis Date - PM - PAST MEDICAL HISTORY OF 02/25/2008 Vertigo PAST SURGICAL HISTORY Procedure Laterality Date - [facility]2013 [facility] Colonoscopy - EGD W/O OR W/BRUSH/WASH 02/04/2013 [facility] EGD - PAST SURGICAL HISTORY OF [...] term outcome. 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 N/A - Patient is a non-smoker or quit >1 year ago. Was a referral initiated?N/A Patient is a non-smoker Letter Text Encounter Status:Closed by MATTEO BELL MD on 07/01/19 [facility] PROGRESSon 07-01-2019 PROGRESS HNO ID: [id number] Author: Matteo () Herlinda De Leon Service: [...] (Hcc) PAST MEDICAL HISTORY Diagnosis Date - PMH - PAST MEDICAL HISTORY OF 02/25/2008 Vertigo PAST SURGICAL HISTORY Procedure Laterality Date - COLONOSCOP W/ OR W/O [facility] SPEC 02/04/2013 [facility] Colonoscopy - EGD W/O OR W/BRUSH/WASH 02/04/2013 [facility] EGD - PAST SURGICAL HISTORY OF [...] term outcome. 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 risks up [...] Otology AND Neurotology 07/01/2019 10:41 PM Normal [facility] MR-Brain W/WO Contrast IMPOR Ton 06-11-2019 MR-Brain W/WO Contrast IMPORT Images were obtained outside of [facility] [id number] CN Normal [facility] Office Visiton 12-06-2016 Documentation of current medications (procedure) Done Invalid Interpretation Code [facility] Work Phone: Tobacco smoking status NHIS Former smoker [facility] Work Phone: Tobacco use CPHS Former smoker Invalid Interpretation Code [facility] Work Phone: Vital Signs Date Time Vital Sign Value Performing Clinician Facility 12-26-2024 13:49-0400 Body height 190.[address] Angel Guzman MD Work Phone: 6(309)121-572314 [place] [address] 12-26-2024 13:49-0400 Body mass index (BMI) [Ratio] 25.3 kg/m2 Dr. Angel Guzman MD Work Phone: 5(142)697-777514 [place] [address] 12-26-2024 13:49-0400 Body weight 92.[address] Angel Guzman MD Work Phone: 0(066)216-185714 [place] [address] 12-26-2024 13:49-0400 Diastolic blood pressure 76 mm[Hg] Dr. Angel Guzman MD Work Phone: 0(272)406-894087 [place] [address] 12-26-2024 13:49-0400 Heart rate 65 /min Dr. Angel Guzman MD Work Phone: 9(827)530-263787 [place] [address] 12-26-2024 13:49-0400 Respiratory rate 16 /min Dr. Angel Guzman MD Work Phone: 7(931)042-688614 [place] [address] 12-26-2024 13:49-0400 Systolic blood pressure 129 mm[Hg] Dr. Angel Guzman MD Work Phone: 9(741)874-853414 [place] [address] 06-26-2023 11:25-0500 Body height 190.[address] Angel Guzman Work Phone: 9(123)379-902680 [address] 06-26-2023 11:25-0500 Body mass index (BMI) [Ratio] 25 kg/m2 Dr. Angel Guzman Work Phone: 3(492)473-265014 [place] [address] 06-26-2023 11:25-0500 Body weight 90.[address] Angel Guzman Work Phone: 8(018)055-762414 [place] [address] 06-26-2023 11:25-0500 Diastolic blood pressure 90 mm[Hg] Dr. Angel Guzman Work Phone: 9(756)112-391114 [place] [address] 06-26-2023 11:25-0500 Heart rate 52 /min Dr. Angel Guzman Work Phone: 3(736)573-650814 [place] [address] 06-26-2023 11:25-0500 Respiratory rate 18 /min Dr. Angel Guzman Work Phone: [facility] 06-26-2023 11:25-0500 SaO2% (BldA) [Mass fraction] 100 % Dr. Angel Guzman Work Phone: [facility] 06-26-2023 11:25-0500 Systolic blood pressure 133 mm[Hg] Dr. Angel Guzman Work Phone: [facility] 03-16-2023 13:13-0400 Body height 190.[address] Angel Guzman Work Phone: [facility] 03-16-2023 13:13-0400 Body mass index (BMI) [Ratio] 24.6 kg/m2 Dr. Angel Guzman Work Phone: [facility] 03-16-2023 13:13-0400 Body weight 89.[address] Angel Guzman Work Phone: [facility] 03-16-2023 13:13-0400 Diastolic blood pressure 84 mm[Hg] Dr. Angel Guzman Work Phone: [facility] 03-16-2023 13:13-0400 Heart rate 52 /min Dr. Angel Guzman Work Phone: [facility] 03-16-2023 13:13-0400 Respiratory rate 18 /min Dr. Angel Guzman Work Phone: [facility] 03-16-2023 13:13-0400 SaO2% (BldA) [Mass fraction] 99 % Dr. Angel Guzman Work Phone: [facility] 03-16-2023 13:13-0400 Systolic blood pressure 126 mm[Hg] Dr. Angel Guzman Work Phone: [facility] 12-23-2022 11:32-0400 Body height 190.[address] Angel Guzman Work Phone: [facility] 12-23-2022 11:32-0400 Body mass index (BMI) [Ratio] 24.6 kg/m2 Dr. Angel Guzman Work Phone: [facility] 12-23-2022 11:32-0400 Body weight 89.[address] Angel Guzman Work Phone: [facility] 12-23-2022 11:32-0400 Diastolic blood pressure 81 mm[Hg] Dr. Angel Guzman Work Phone: [facility] 12-23-2022 11:32-0400 Heart rate 52 /min Dr. Angel Guzman Work Phone: [facility] 12-23-2022 11:32-0400 Respiratory rate 18 /min Dr. Angel Guzman Work Phone: [facility] 12-23-2022 11:32-0400 SaO2% (BldA) [Mass fraction] 99 % Dr. Angel Guzman Work Phone: [facility] 12-23-2022 11:32-0400 Systolic blood pressure 127 mm[Hg] Dr. Angel Guzman Work Phone: [facility] 05-18-2022 10:33-0400 Body height 190.[address] Angel Guzman Work Phone: [facility] Work Phone: 05-18-2022 10:33-0400 Body mass index (BMI) [Ratio] 25 kg/m2 Dr. Angel Guzman Work Phone: [facility] Work Phone: 05-18-2022 10:33-0400 Body weight 90.[address] Angel Guzman Work Phone: [facility] Work Phone: 05-18-2022 10:33-0400 Diastolic blood pressure 70 mm[Hg] Dr. Angel Guzman Work Phone: [facility] Work Phone: 05-18-2022 10:33-0400 Heart rate 64 /min Dr. Angel Guzman Work Phone: [facility] Work Phone: 05-18-2022 10:33-0400 Respiratory rate 16 /min Dr. Angel Guzman Work Phone: [facility] Work Phone: 05-18-2022 10:33-0400 Systolic blood pressure 131 mm[Hg] Dr. Angel Guzman Work Phone: [facility] Work Phone: 03-13-2022 05:23-0400 Diastolic blood pressure 73 mm[Hg] Dr. Angel Guzman Work Phone: [facility] Work Phone: 03-13-2022 05:23-0400 Heart rate 50 /min Dr. Angel Guzman Work Phone: [facility] Work Phone: 03-13-2022 05:23-0400 Respiratory rate 18 /min Dr. Angel Guzman Work Phone: [facility] Work Phone: 03-13-2022 05:23-0400 SaO2% (BldA) [Mass fraction] 94 % Dr. Angel Guzman Work Phone: [facility] Work Phone: 03-13-2022 05:23-0400 Systolic blood pressure 126 mm[Hg] Dr. Angel Guzman Work Phone: [facility] Work Phone: 03-13-2022 02:17-0400 Body height 190.[address] Angel Guzman Work Phone: [facility] Work Phone: 03-13-2022 02:17-0400 Body mass index (BMI) [Ratio] 26.1 kg/m2 Dr. Angel Guzman Work Phone: [facility] Work Phone: 03-13-2022 02:17-0400 Body temperature 97.7 [degF] Dr. Angel Guzman Work Phone: [facility] Work Phone: 03-13-2022 02:17-0400 Body weight 94.[address] Angel Guzman Work Phone: [facility] Work Phone: 11-15-2021 10:09-0400 Body mass index (BMI) [Ratio] 25.5 kg/m2 Dr. Angel Guzman Work Phone: [facility] Work Phone: 11-15-2021 10:09-0400 Body temperature 97.4 [degF] Dr. Angel Guzman Work Phone: [facility] Work Phone: 11-15-2021 10:09-0400 Body weight 92.[address] Angel Guzman Work Phone: [facility] Work Phone: 11-15-2021 10:09-0400 Diastolic blood pressure 85 mm[Hg] Dr. Angel Guzman Work Phone: [facility] Work Phone: 11-15-2021 10:09-0400 Heart rate 55 /min Dr. Angel Guzman Work Phone: [facility] Work Phone: 11-15-2021 10:09-0400 Respiratory rate 18 /min Dr. Angel Guzman Work Phone: [facility] Work Phone: 11-15-2021 10:09-0400 SaO2% (BldA) [Mass fraction] 95 % Dr. Angel Guzman Work Phone: [facility] Work Phone: 11-15-2021 10:09-0400 Systolic blood pressure 125 mm[Hg] Dr. Angel Guzman Work Phone: [facility] Work Phone: 08-09-2016 09:53-0500 BMI (Body Mass Index) 24.75 kg/m2 [facility] Work Phone: 08-09-2016 09:53-0500 Body weight 89.81 kg Sandra Ugarte [facility] Work Phone: 08-09-2016 09:53-0500 Height 190.5 cm [facility] Work Phone: 08-09-2016 09:53-0500 Weight 89.81 kg [place] [facility] Work Phone: Encounters Encounter Date Encounter Type Care Provider Facility Start: 01-01-2025 ambulatory Angel Das y:[facility] Start: 12-26-2024 End: 12-26-[address] Santy Mckeon MD -[facility] Work Phone: Start: 12-26-2024 End: 12-26-[address] Angel Guzman MD Work Phone: [facility] Work Phone: Start: 07-03-2024 End: 07-03-2024 ambulatory Angel Guzman Facility:[facility] Start: 05-08-2024 ambulatory Angel Guzman Facilit y:[facility] Start: 04-26-2024 End: 04-26-2024 ambulatory Angel Guzman Facility:[facility] Start: 04-08-2024 End: 04-08-2024 ambulatory Angel Guzman Facility:[facility] Start: 07-31-2023 Non-patient / Non-visit Dr. Sandra Guzman Work Phone: [facility] Start: 07-31-2023 End: 07-31-[address] Angel Guzman Work Phone: [facility] Work Phone: Start: 07-31-2023 End: 07-31-[address] [facility]: Start: 06-26-2023 End: 06-26-[address] Angel Guzman Work Phone: [facility] Work Phone: Start: 06-13-2023 End: 06-13-[address] Angel Guzman Work Phone: [facility] Work Phone: Start: 06-13-2023 End: 06-13-[address] Angel Guzman Work Phone: [facility] Work Phone: Start: 03-16-2023 End: 03-16-[address] Angel Guzman Work Phone: [facility] Work Phone: Start: 02-15-2023 End: 02-15-[address] Angel Guzman Work Phone: [facility] Work Phone: Start: 02-15-2023 End: 02-15-[address] Angel Guzman Work Phone: [facility] Work Phone: Start: 02-09-2023 End: 02-09-[address] Angel Guzman Work Phone: [facility] Work Phone: Start: 02-09-2023 End: 02-09-[address] Angel Guzman Work Phone: [facility] Start: 02-03-2023 End: 02-03-[address] Angel Guzman Work Phone: [facility]Laboratory, Specimen Work Phone: Start: 02-03-2023 End: 02-03-[address] Angel Guzman Work Phone: [facility] Work Phone: Start: 01-19-2023 End: 01-19-[address] Angel Guzman Work Phone: [facility] Work Phone: Start: 01-19-2023 End: 01-19-[address] Angel Guzman Work Phone: [facility] Work Phone: Start: 01-19-2023 End: 01-19-[address] Angel Guzman Work Phone: [facility] Work Phone: Start: 01-11-2023 End: 01-11-[address] Angel Guzman Work Phone: [facility] Work Phone: Start: 01-11-2023 End: 01-11-[address] Angel Guzman Work Phone: [facility] Work Phone: Start: 01-09-2023 End: 01-09-[address] Angel Guzman Work Phone: [facility] Work Phone: Start: 01-09-2023 End: 01-09-[address] Angel Guzman Work Phone: [facility] Work Phone: Start: 01-08-[address] Angel lees Work Phone: [facility] Work Phone: Start: 12-23-2022 End: 12-23-[address] Angel Guzman Work Phone: [facility] Work Phone: Start: 12-09-2022 End: 12-09-[address] Angel Guzman Work Phone: [facility] Work Phone: Start: 12-09-2022 End: 12-09-[address] Angel Guzman Work Phone: [facility] Work Phone: Start: 05-30-2022 Non-patient / Non-visit Dr. Sandra Guzman Work Phone: [facility] Start: 05-30-2022 End: 05-30-[address] Angel Guzman Work Phone: [facility] Work Phone: Start: 05-30-2022 End: 05-30-[address] Angel Gu[facility] Start: 05-18-2022 End: 05-18-[address] Angel Guzman Work Phone: [facility] Start: 03-13-2022 End: 03-13-2022 Emergency department patient visit Dr. Angel Guzman Work Phone: [facility]Emergency Department Start: 11-15-2021 End: 11-15-[address] Angel Guzman Work Phone: [facility] Procedures Date Procedure Procedure Detail Performing [...] above: Performed By: #### X M #### [facility] (DEFAULT) [address] [place] [address] Start: 08-27-2020 Antibody screen Comment on above: Performed By: #### X MPO #### [facility] (DEFAULT) [address] [place], [place] [id number] Start: 08-17-2020 History of coronary artery bypass [...] Date Care Activity Detail Author Start: 03-13-2022 [facility] Work Phone: Start: 12-06-2016 End: 12-06-2016 Appointment Appointment [facility] Work Phone: Start: 08-09-2016 End: 08-09-2016 Mri joint upr extrem w/o dye MRI Joint Upper Extremity [facility] Work Phone: Start: 08-09-2016 End: 08-09-2016 X-ray exam of shoulder X-Ray, Shoulder [facility] Work Phone: Patient Education [facility] Work Phone: Patient referral [facility] Work Phone: Payers Date Payer Category Payer Self-pay [id number] 2024 Medicare [id number] 2024 Unknown [id number] 2015 Unknown [employer] [place] [id number] Unknown [employer] [facility] [id number] Unknown [id number] [id number] Unknown [id number] [id number] Unknown [id number] Unknown [id number] [id number] Unknown [id number] [id number] [id number] Unknown [id number] [id number] Social History Date Type Detail Facility Start: 03-13-2022 End: 06-26-2023 Tobacco smoking status NHIS Unknown if ever smoked [facility] Start: 1950 Sex Assigned At Male [facility] Start: 06-26-2023 Tobacco smoking stat us OKIS Never smoked tobacco (finding) [facility] Mental Status Date Assessment Result Facility 03-13-2022 Cognitive function Voice/Name [facility] Work Phone: Evaluation note 08-17-2020 Note Date & Type Note Facility 08-17-2020 Evaluation note Diagnosis Onset Date Benign essential HTN acute 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 August, chronic PAF (paroxysmal atrial fibrillation) chronic S/P coronary artery stent placement June, [facility] Work Phone: Evaluation note 08-17-2020 Note Date & Type Note Facility 08-17-2020 Evaluation note Diagnosis Onset Date Atherosclerotic heart diseas e of [place] coronary artery without angina pectoris chronic Essential hypertension chron ic History of coronary artery bypass surgery August, chronic PAF (paroxysmal atrial fibrillation) chronic S/P coronary artery stent placement June, chronic Shortness of breath [facility] Work Phone: Evaluation note 08-17-2020 Note Date & Type Note Facility 08-17-2020 Evaluation note Diagnosis Onset Date Essential hypertension chron ic History of coronary artery bypass surgery August, chronic PAF (paroxysmal atrial fibrillation) chronic S/P coronary artery stent placement June, [facility] Work Phone: Evaluation note 08-17-2020 Note Date & Type Note Facility 08-17-2020 Evaluation note Diagnosis Onset Date Essential hypertension chron ic History of coronary artery bypass surgery August, chronic PAF (paroxysmal atrial fibrillation) chronic S/P coronary artery stent placement June, chronic Multiple thyroid nodules chr [facility] Work Phone: Evaluation note 08-17-2020 Note Date & Type Note Facility 08-17-2020 Evaluation note Diagnosis Onset Date Essential hypertension chron ic History of coronary artery bypass surgery August, chronic PAF (paroxysmal atrial fibrillation) chronic S/P coronary artery stent placement June, chronic Multiple thyroid nodules chr [facility] Multiple thyroid nodules [facility] Work Phone: Evaluation note Note Date & Type Note Facility Evaluation note [facility] Work [facility]: Reason for referral (narrative) Note Date & Type Note Facility Reason for referral (narrative) No reason for referral information available [facility] Work Phone: Summary Purpose Family History No [...] No March 13 2 2:22am Power of Life Sciences Manager No March 13, 2 022 2:22am Advance Directive Response Recorded Date/ Time Advance Directives No June 16, 2020 8:11am Living Will No March 13 2 1:22am Power of Life Sciences Manager No March 13, 2 022 1:22am Advance Directive Response Recorded Date/ Time Advance Directives No June 16, 2020 9:11am Chief Complaint and Reason for Visit Chief Complaint 6 M FU cp Reason for Visit Benign essential HTN Atherosclerotic heart disease of [place] coronary artery without angina pectoris History of coronary artery bypass surgery PAF (paroxysmal atrial fibrillation) S/P coronary artery stent placement Chief Complaint cp 6 M FU SOB Shortness of breath Reason for Visit Atherosclerotic hear t disease of [place] coronary artery without angina pectoris Essential hypertension [...] section and content) DATE CREATED AUTHOR 07/05/2019 [facility] DATE CREATED AUTHOR AUTHOR'S ORGANIZ ATION 08/15/2021 [facility] DATE CREATED AUTHOR AUTHOR'S ORGANIZ ATION 01/04/2025 [facility] Goals (unrecognized section and content) Goals may [...] Care Provider, Referr ing Provider Active Patricia DONALDSON, PA Attending Provider Active Team Status: Active [...] Guzman MD Primary Care Provider Active Patricia DONALDSON PA Attending Provider, Referr ing Provider Active Team Status: Active Member Role Status Dates Dr. Angel Guzman MD Primary Care Pr ovider, Attending Provider, Referring Provider Active Team Status: Inactive Member Role Status Dates Dr. Angel Guzman MD Primary Care Provider Active Patricia DONALDSON PA Attending Provider Active Team Status: Inactive Member Role Status Dates Dr. Angel Guzman MD Primary Care Pr ovider, Attending Provider, Referring Provider Active Team Status: Inactive Member Role Status Dates Dr. Angel Guzman MD Primary Care Provider Active Tamie Mcleod TEMPERATURE CONTROL INSPECTOR, TEMPERATURE CONTROL INSPECTOR-C Attending Provider, Referring P gómez Active Team [...] Guzman MD Primary Care Provider Active Patricia DONALDSON PA Referring Provider, Other Provider Active Dr. Hector Tomlin MD Attending Provider Active Team Status: Inactive Member Role Status Dates Dr. Angel Guzman MD Primary Care Provider Active Patricia DONALDSON PA Attending Provider, Referr ing Provider Active [...] BE BASED ON THE PRIMARY CLINICAL RECORDS. [facility]. provides no warranty or guarantee of the accuracy or completeness of information in this document.
== END | disposition home or self-care (01) ==
LOC: CT 17:17
PROVIDERS: PCP Family Medicine; Referring Provider Family Medicine; Visit Provider Family Medicine
DX: K43.9 Ventral hernia without obstruction or gangrene (principal)
CPT/HCPCS: 74160; Q9967

== ENCOUNTER → 2025-07-14 | Outpatient (CLI) | payer MEDICARE, OTHER, SELFPAY ==
[2025-07-14 15:33] LABS: PSA,Total - Annual Screen 1.97 ng/mL (0.02-4.00)
== END | disposition home or self-care (01) ==
LOC: MFPLAB 12:29
PROVIDERS: PCP Family Medicine
DX: Z12.5 Encounter for screening for malignant neoplasm of prostate (principal)
CPT/HCPCS: 36415; 84153; G0103